=== PATIENT | female | born 1955 | race Caucasian/White ===

== ENCOUNTER → 2016-06-27 07:34 | Outpatient (CLI) | payer MEDICARE ==
[2015-09-20 15:09] VITALS: BMI 27.8
== END | disposition home or self-care (01) ==
LOC: D.CT 07:34
DX: R10.31 Right lower quadrant pain (principal)

== ENCOUNTER 2016-08-17 19:43 | Emergency (ER) | payer MEDICARE ==
[2015-09-20 15:09] VITALS: BMI 27.8
[2016-08-17 20:16] LABS: BASOPHILS 0.5 % (0-2); EOSINOPHILS 1.5 % (0-7); HEMATOCRIT 37.8 % (36.0-48.0); HEMOGLOBIN 12.4 g/dL (12-16); IMMATURE GRANULOCYTES 0.1 % (0-5); MCHC 32.8 g/dL (31.0-37.0); MCV 85.3 fL (80.0-100.0); MEAN PLATELET VOLUME 9.5 fL (7.4-10.4); MONOCYTES 6.7 % (2-11); NEUTROPHILS 70.2 % (40-80); RBC 4.43 10x6/uL (4.00-5.40); RDW 15.7 % (11.5-14.5); WBC 8.5 10x3/uL (4.8-10.8)
[2016-08-17 20:21] LABS: PLATELET COUNT 234 10x3/uL (130-400)
[2016-08-17 20:47] LABS: ALBUMIN 3.2 g/dL (3.4-5.0); ALKALINE PHOSPHATASE 113 U/L (46-116); ALT (SGPT) 18 U/L (10-68); BILIRUBIN - TOTAL 0.14 mg/dL (0.2-1.3); CALC OSMOLALITY 283 mosm/kg (275-300); CALCIUM 8.9 mg/dL (8.5-10.1); CARBON DIOXIDE 29.3 mmol/L (21.0-32.0); CHLORIDE - SERUM 104 mmol/L (98-107); CREATININE - SERUM 0.9 mg/dL (0.6-1.3); GLUCOSE 101 mg/dL (74-106); POTASSIUM - SERUM 3.9 mmol/L (3.5-5.1); PROTEIN - SERUM 6.4 g/dL (6.4-8.2); SODIUM 142 mmol/L (136-145); UREA NITROGEN 14 mg/dL (7-18); eGFR NON AFRICAN AMERICAN 67 mL/min (90-120)
[2016-08-17 20:51] LABS: C-REACTIVE PROTEIN < 0.2 mg/dL (0.0-0.9)
== END 2016-08-17 22:25 | disposition home or self-care (01) ==
LOC: D.ER 19:43
PROVIDERS: Family Medicine; Nurse Practitioner Acute Care
DX: R10.31 Right lower quadrant pain (principal); M51.27 Other intervertebral disc displacement, lumbosacral region; F17.200 Nicotine dependence, unspecified, uncomplicated

== ENCOUNTER 2016-08-21 14:44 | Emergency (ER) | payer MEDICARE ==
[2015-09-20 15:09] VITALS: BMI 27.8
[2016-08-21 15:33] LABS: APPEARANCE HAZY (CLEAR); BILIRUBIN NEGATIVE (NEGATIVE); COLOR YELLOW (YELLOW); GLUCOSE NEGATIVE (NEGATIVE); KETONE NEGATIVE (NEGATIVE); LEUKOCYTE ESTERASE 1+ (NEGATIVE); NITRITE NEGATIVE (NEGATIVE); PROTEIN NEGATIVE (NEGATIVE); UROBILINOGEN NORMAL (NORMAL)
[2016-08-21 15:36] LABS: BACTERIA FEW /hpf (NONE SEEN); EPITHELIAL CELLS 0-5 /hpf (0-5); RED CELLS - URINE 0-5 /hpf (0-5)
[2016-08-21 15:39] LABS: BASOPHILS 0.7 % (0-2); EOSINOPHILS 1.8 % (0-7); HEMATOCRIT 35.7 % (36.0-48.0); HEMOGLOBIN 11.9 g/dL (12-16); IMMATURE GRANULOCYTES 0.4 % (0-5); LYMPHOCYTES 31.3 % (15-50); MCH 28.3 pg (26.0-34.0); MCHC 33.3 g/dL (31.0-37.0); MEAN PLATELET VOLUME 9.4 fL (7.4-10.4); MONOCYTES 8.2 % (2-11); NEUTROPHILS 57.6 % (40-80); PLATELET COUNT 215 10x3/uL (130-400); RDW 15.5 % (11.5-14.5); WBC 5.5 10x3/uL (4.8-10.8)
[2016-08-21 15:59] LABS: ALBUMIN 3.2 g/dL (3.4-5.0); ALKALINE PHOSPHATASE 115 U/L (46-116); ALT (SGPT) 22 U/L (10-68); BILIRUBIN - TOTAL 0.11 mg/dL (0.2-1.3); CALC OSMOLALITY 277 mosm/kg (275-300); CALCIUM 9.1 mg/dL (8.5-10.1); CARBON DIOXIDE 31.7 mmol/L (21.0-32.0); CHLORIDE - SERUM 105 mmol/L (98-107); CREATININE - SERUM 0.8 mg/dL (0.6-1.3); GLUCOSE 95 mg/dL (74-106); POTASSIUM - SERUM 3.6 mmol/L (3.5-5.1); PROTEIN - SERUM 6.7 g/dL (6.4-8.2); SODIUM 140 mmol/L (136-145); UREA NITROGEN 9 mg/dL (7-18); eGFR NON AFRICAN AMERICAN 77 mL/min (90-120)
== END 2016-08-21 17:31 | disposition home or self-care (01) ==
LOC: D.ER 14:44
PROVIDERS: Emergency Medicine; Nurse Practitioner Family
DX: N39.0 Urinary tract infection, site not specified (principal); R10.9 Unspecified abdominal pain; C18.9 Malignant neoplasm of colon, unspecified; F17.200 Nicotine dependence, unspecified, uncomplicated

== ENCOUNTER → 2016-11-10 07:05 | Outpatient (CLI) | payer MEDICARE ==
[2015-09-20 15:09] VITALS: BMI 27.8
== END | disposition home or self-care (01) ==
LOC: D.RAD 07:05
DX: R10.9 Unspecified abdominal pain (principal); Z85.038 Personal history of other malignant neoplasm of large intestine

== ENCOUNTER 2016-12-02 09:24 | Inpatient (IN) | payer MEDICARE ==
[~2016-12-02] VITALS: Ht 160 cm; Wt 68.2 kg
[2016-12-02 10:07] LABS: BASOPHILS 0.7 % (0-2); EOSINOPHILS 1.5 % (0-7); HEMATOCRIT 39.2 % (36.0-48.0); IMMATURE GRANULOCYTES 0.1 % (0-5); LYMPHOCYTES 21.8 % (15-50); MCH 27.4 pg (26.0-34.0); MCHC 33.2 g/dL (31.0-37.0); MCV 82.7 fL (80.0-100.0); MEAN PLATELET VOLUME 9.2 fL (7.4-10.4); MONOCYTES 5.2 % (2-11); NEUTROPHILS 70.7 % (40-80); PLATELET COUNT 253 10x3/uL (130-400); RBC 4.74 10x6/uL (4.00-5.40); RDW 15.3 % (11.5-14.5); WBC 7.5 10x3/uL (4.8-10.8)
[2016-12-02 10:33] LABS: ALBUMIN 3.7 g/dL (3.4-5.0); ALKALINE PHOSPHATASE 114 U/L (46-116); ALT (SGPT) 18 U/L (10-68); BILIRUBIN - TOTAL 0.28 mg/dL (0.2-1.3); CALC OSMOLALITY 274 mosm/kg (275-300); CALCIUM 9.5 mg/dL (8.5-10.1); CHLORIDE - SERUM 102 mmol/L (98-107); CREATININE - SERUM 0.8 mg/dL (0.6-1.3); GLUCOSE 90 mg/dL (74-106); POTASSIUM - SERUM 3.7 mmol/L (3.5-5.1); PROTEIN - SERUM 7.9 g/dL (6.4-8.2); SODIUM 138 mmol/L (136-145); UREA NITROGEN 10 mg/dL (7-18); eGFR NON AFRICAN AMERICAN 77 mL/min (90-120)
[2016-12-02] MEDS ORDERED: OMEPRAZOLE40 MG PO (10:45)
--- NOTE | 2016-12-02 10:45 | NUR ---
RECIEVED PT TO THE FLOOR AT THIS TIME, ACCEPTED AND ASSESSMENT DONE BY LAZ MONIQUE RN. WILL CONTINUE TO MONITOR.
[2016-12-02] MEDS ORDERED: EXCEDRIN CAPLET1 TAB PO (10:46)
[2016-12-02 11:54] VITALS: BP 138/64; Ht 160 cm; Wt 68.2 kg
[2016-12-02 12:59] VITALS: BP 136/78
[2016-12-02 14:04] LABS: APPEARANCE CLEAR (CLEAR); BILIRUBIN NEGATIVE (NEGATIVE); COLOR YELLOW (YELLOW); GLUCOSE NEGATIVE (NEGATIVE); KETONE NEGATIVE (NEGATIVE); NITRITE NEGATIVE (NEGATIVE); PROTEIN TRACE mg/dL (NEGATIVE); SPECIFIC GRAVITY 1.015 (1.005-1.020); UROBILINOGEN NORMAL (NORMAL)
[2016-12-02 14:07] LABS: BACTERIA FEW /hpf (NONE SEEN); EPITHELIAL CELLS 0-5 /hpf (0-5); GRANULAR CAST OCC /lpf (NONE SEEN); HYALINE CAST 0-5 /lpf (NONE SEEN); LEUKOCYTE ESTERASE TRACE (NEGATIVE); MUCUS <1+ /lpf (NONE SEEN); RED CELLS - URINE OCC /hpf (0-5)
[2016-12-02 16:58] VITALS: BP 129/77
[2016-12-02 20:00] VITALS: BP 160/82
--- NOTE | 2016-12-02 23:30 | NUR ---
PATIENT RESTING IN BED WITH EYES CLOSED AND NO VISIBLE SIGNS OF DISTRESS. BED IN LOWEST POSITION AND CALL LIGHT WITHIN REACH.
[2016-12-03 04:00] VITALS: BP 137/77
[2016-12-03 05:30] LABS: BASOPHILS 0.5 % (0-2); EOSINOPHILS 0.5 % (0-7); HEMATOCRIT 37.1 % (36.0-48.0); HEMOGLOBIN 11.9 g/dL (12-16); IMMATURE GRANULOCYTES 0.2 % (0-5); LYMPHOCYTES 19.7 % (15-50); MCH 26.7 pg (26.0-34.0); MCHC 32.1 g/dL (31.0-37.0); MCV 83.4 fL (80.0-100.0); MEAN PLATELET VOLUME 9.6 fL (7.4-10.4); NEUTROPHILS 71.1 % (40-80); PLATELET COUNT 246 10x3/uL (130-400); RBC 4.45 10x6/uL (4.00-5.40); RDW 15.1 % (11.5-14.5)
[2016-12-03 05:46] LABS: WBC 5.5 10x3/uL (4.8-10.8)
[2016-12-03 06:00] LABS: ALBUMIN 3.1 g/dL (3.4-5.0); ALKALINE PHOSPHATASE 100 U/L (46-116); ALT (SGPT) 16 U/L (10-68); BILIRUBIN - TOTAL 0.25 mg/dL (0.2-1.3); CALC OSMOLALITY 277 mosm/kg (275-300); CALCIUM 8.7 mg/dL (8.5-10.1); CARBON DIOXIDE 29.9 mmol/L (21.0-32.0); CHLORIDE - SERUM 104 mmol/L (98-107); CREATININE - SERUM 0.7 mg/dL (0.6-1.3); GLUCOSE 91 mg/dL (74-106); POTASSIUM - SERUM 3.8 mmol/L (3.5-5.1); PROTEIN - SERUM 6.8 g/dL (6.4-8.2); SODIUM 140 mmol/L (136-145); UREA NITROGEN 10 mg/dL (7-18); eGFR NON AFRICAN AMERICAN 90 mL/min (90-120)
--- NOTE | 2016-12-03 07:45 | NUR ---
ASSESSMENT COMPLETE. IV TO L HAND PATENT. NS INFUSING AT 75 CC/HR VIA PUMP. ILEOSTOMY PATENT WITH SMALL AMOUNT OF LIQUID GREENISH-BROWN STOOL NOTED IN BAG. DRESSING C/D/I TO L ABDOMEN. DENIES ANY NEEDS AT PRESENT.
[2016-12-03 09:52] VITALS: BP 158/83
--- NOTE | 2016-12-03 10:30 | NUR ---
ILEOSTOMY EMPTIED. DENIES ANY FURTHER NEEDS AT THIS TIME.
[2016-12-03 13:07] VITALS: BP 150/80
--- NOTE | 2016-12-03 13:21 | NUR ---
CM met with patient to assess discharge planning needs. Patient lives home alone independently where she plans to return. Patient's brother (Matti Rojo, [phone]) will be the person to drive her home when the time comes. Patient has a can and a walker at home. She denies any HH or any DME and does not this she will need it when she goes home. CM will continue to follow and assist as needed. PCP: [facility] Matti Rojo ([phone]) Brother
--- NOTE | 2016-12-03 15:00 | NUR ---
ILEOSTOMY BAG AND WAFER CHANGED PER PATIENT REQUEST.
--- NOTE | 2016-12-03 15:57 | NUR ---
PATIENT BEING DISCHARGED TODAY WITH HOME HEALTH FOR WOUND DRESSING CHANGE. HH SET UP WITH [facility] PER PATIENT CHOICE, BRODERICK SIGNED AND PLACED IN CHART
[2016-12-03] MEDS ORDERED: LEVAQUIN500 MG PO (15:59)
[2016-12-03 16:41] VITALS: BP 144/68
--- NOTE | 2016-12-03 17:00 | NUR ---
DISCHARGE TEACHING GIVEN TO PATIENT. WOUND TO L ABDOMEN PACKED AND COVERED WITH 4X4'S AND TAPE.
--- NOTE | 2016-12-03 17:08 | NUR ---
DC'D HOME WITH FAMILY. ESCORTED TO VEHICLE BY THERMAL SPRAY OPERATOR WITH BELONGINGS.
== END 2016-12-03 17:08 | disposition home health service (06) | DRG 863 ==
LOC: D.MS 09:24
PROVIDERS: ADMIT Family Medicine
DX: T81.4XXA Infection following a procedure, initial encounter (principal); L02.211 Cutaneous abscess of abdominal wall; Z93.3 Colostomy status; K21.9 Gastro-esophageal reflux disease without esophagitis; F17.200 Nicotine dependence, unspecified, uncomplicated

== ENCOUNTER 2017-01-04 14:50 | Inpatient (IN) | payer MEDICARE ==
[~2017-01-04] VITALS: Ht 160 cm; Wt 67.1 kg
[~2017-01-04 14:50] MED LIST: DILAUDID2 MG PO; EXCEDRIN CAPLET1 TAB PO; LEVAQUIN500 MG PO; OMEPRAZOLE40 MG PO; ZANAFLEX4 MG PO
[2017-01-04 15:28] LABS: BASOPHILS 0.1 % (0-2); EOSINOPHILS 0.2 % (0-7); HEMATOCRIT 36.7 % (36.0-48.0); HEMOGLOBIN 12.3 g/dL (12-16); IMMATURE GRANULOCYTES 0.5 % (0-5); LYMPHOCYTES 7.7 % (15-50); MCHC 33.5 g/dL (31.0-37.0); MCV 80.7 fL (80.0-100.0); MEAN PLATELET VOLUME 9.9 fL (7.4-10.4); NEUTROPHILS 85.5 % (40-80); PLATELET COUNT 240 10x3/uL (130-400); RBC 4.55 10x6/uL (4.00-5.40); RDW 15.8 % (11.5-14.5); WBC 9.4 10x3/uL (4.8-10.8)
[2017-01-04 15:46] LABS: ALBUMIN 2.6 g/dL (3.4-5.0); ANION GAP 13.8 mmol/L (8-16); BILIRUBIN - TOTAL 1.3 mg/dL (0.2-1.3); CALCIUM 8.8 mg/dL (8.5-10.1); CARBON DIOXIDE 24.8 mmol/L (21.0-32.0); CREATININE - SERUM 1.5 mg/dL (0.6-1.3); POTASSIUM - SERUM 3.6 mmol/L (3.5-5.1); PROTEIN - SERUM 6.9 g/dL (6.4-8.2)
[2017-01-04 18:37] LABS: APPEARANCE CLOUDY (CLEAR); COLOR DK YELLOW (YELLOW); LEUKOCYTE ESTERASE TRACE (NEGATIVE); NITRITE NEGATIVE (NEGATIVE); PROTEIN TRACE mg/dL (NEGATIVE); SPECIFIC GRAVITY 1.015 (1.005-1.020)
[2017-01-04 18:38] LABS: BILIRUBIN NEGATIVE (NEGATIVE); GLUCOSE NEGATIVE (NEGATIVE); KETONE NEGATIVE (NEGATIVE); UROBILINOGEN NORMAL (NORMAL)
[2017-01-04 18:44] LABS: AMORPHOUS SEDIMENT >1+ /lpf (NONE SEEN); BACTERIA MANY /hpf (NONE SEEN); EPITHELIAL CELLS 0-5 /hpf (0-5); HYALINE CAST 0-5 /lpf (NONE SEEN); RED CELLS - URINE 0-5 /hpf (0-5)
--- NOTE | 2017-01-04 21:00 | NUR ---
PATIENT RESTING IN BED WITH EYES CLOSED AND NO VISIBLE SIGNS OF DISTRESS. BED IN LOWEST POSITION AND CALL LIGHT WITHIN REACH.
--- NOTE | 2017-01-04 22:48 | NUR ---
CALLED WILFRED IN REGARDS TO PULLING LEVAQUIN
[2017-01-05] VITALS: BP 124/57
[2017-01-05 00:38] VITALS: BP 109/55; BMI 26.2
[2017-01-05 04:00] VITALS: BP 104/60
--- NOTE | 2017-01-05 04:49 | NUR ---
NOTIFIED BY PATIENT THAT HER OSTOMY BAG WAS LEAKING. CHANGED PATIENT'S BAG AND DID A COMPLETE LINEN CHANGE. ALSO CHANGED THE PATIENT'S ABDOMINAL DRESSING. PATIENT RESTING AND DENIES OTHER NEEDS AT THIS TIME. BED IN LOWEST POSITION AND CALL LIGHT WITHIN REACH. ENCOURAGED THE PATIENT TO CALL IF SHE HAS OTHER NEEDS.
[2017-01-05 05:20] LABS: BASOPHILS 0.3 % (0-2); EOSINOPHILS 1.3 % (0-7); HEMATOCRIT 33.4 % (36.0-48.0); HEMOGLOBIN 10.9 g/dL (12-16); IMMATURE GRANULOCYTES 0.4 % (0-5); LYMPHOCYTES 6.3 % (15-50); MCH 26.5 pg (26.0-34.0); MCHC 32.6 g/dL (31.0-37.0); MCV 81.1 fL (80.0-100.0); MEAN PLATELET VOLUME 9.5 fL (7.4-10.4); MONOCYTES 6.7 % (2-11); PLATELET COUNT 234 10x3/uL (130-400); RBC 4.12 10x6/uL (4.00-5.40); RDW 15.7 % (11.5-14.5); WBC 7.8 10x3/uL (4.8-10.8)
[2017-01-05 05:37] LABS: ALBUMIN 2.2 g/dL (3.4-5.0); CALCIUM 8.5 mg/dL (8.5-10.1); CARBON DIOXIDE 25.3 mmol/L (21.0-32.0); CREATININE - SERUM 1.2 mg/dL (0.6-1.3); POTASSIUM - SERUM 3.3 mmol/L (3.5-5.1); PROTEIN - SERUM 6.3 g/dL (6.4-8.2)
--- NOTE | 2017-01-05 07:40 | NUR ---
ASSESSMENT PER FLOW SHEET.PT WITHOUT DISTRESS.DRESSING TO MID ABDOMEN CDI.DARK BROWN LIQUID STOOLS IN COLOSTOMY BAG.STOMA VERY DARK IN COLOR.REDNESS WITH WARMTH NOTED TO BILATERAL SIDES.NPO.FALL PREVENTION INITIATED WITH BED ALARM,SOCKS AND BAND.
--- NOTE | 2017-01-05 08:25 | NUR ---
CONTYACT ISOLATION PER SAMIA
[2017-01-05 08:31] VITALS: BP 108/52
--- NOTE | 2017-01-05 09:55 | NUR ---
REMAINS NPOFOR SURGERY TODAY.PRE SURGICAL BATH COMPLETE.
--- NOTE | 2017-01-05 10:10 | NUR ---
CONSENTS TO CHART FOR PROCEDURE ORDERED
[2017-01-05 12:28] VITALS: BP 91/45
--- NOTE | 2017-01-05 14:41 | NUR ---
Patient Name: TAO JONES Admission Status: ER Accout number: [id number] Admission Date: 01-04-2017 : 1955 Admission Diagnosis: Attending: RONNIE SONG Current LOS: 1 Anticipated DC Date: 01-08-2017 Planned Disposition: Home Primary Insurance: MEDICARE A & B Discharge Planning Comments: CM MET WITH PATIENT REGARDING D/C NEEDS AND PLANS. PATIENT STATED SHE LIVES ALONE AND HER BROTHER (ROHAN) WILL DRIVE HER HOME AT DISCHARGE. PATIENT STATED SHE HAS NO STEPS OR STAIRS AT HOME. PATIENT IS INDEPENDENT WITH HER CARE AND HAS A WALKER, CANE, AND BS COMMODE AT HOME. PATIENT STATED HER PCP IS DR. ALVAREZ AND PH[facility]ACY IS [facility]. PATIENT IS CURRENT WITH [facility]. CM WILL CONTINUE TO FOLLOW PATIENT WITH D/C NEEDS AND PLANS. PCP [facility]- [phone] ROHAN (BROTHER) [phone] Pattern Ruler: Marily Celis Is the patient Alert and Oriented? Yes 0 * How many steps to enter\exit or inside your home? 0 0 * PCP DR. ALVAREZ 0 * [facility]acy [facility] 0 * Preadmission Environment Home Alone 0 * ADLs Independent 0 * Equipment Bedside Commode Cane Walker 0 * List name and contact numbers for known caregivers / representatives who currently or will assist patient after discharge: ROHAN (BROTHER) [phone] 0 * Community resources currently utilized Home Health 0 * Please name any agencies selected above. [facility] 0 * Additional services required to return to the preadmission environment? Yes 0 * Can the patient safely return to the preadmission environment? Yes 0 * Has this patient been hospitalized within the prior 30 days at any hospital? No 0 Grand Total: 0
--- NOTE | 2017-01-05 15:28 | NUR ---
PT REFUSES TO LET OTHER 1/2 OF THIRD BAG OF POTASSIUM FINISH.STATES SHE WILL TAKE PO IF NEEDED.
[2017-01-05 16:38] VITALS: BP 100/52
[2017-01-06] VITALS: BP 93/51
[2017-01-06 04:00] VITALS: BP 103/42
--- NOTE | 2017-01-06 07:58 | NUR ---
IV RESITED TO RIGHT AC. 22GA X 1
--- NOTE | 2017-01-06 08:05 | NUR ---
PT AOX4 RESP EVEN AND NONLABORED PT DENIES NEEDS AT THIS TIME IV TO RIGHT AC PATENT AND INTACT AT THIS TIME SRX2 BED AT LOWEST SETTING CALL LIGHT WITHIN REACH WILL CONTINUE TO MONITOR
--- NOTE | 2017-01-06 08:24 | NUR ---
Wound care consult: Nurse arrived to pt room at same time as surgery transport. Pt states "I have a cyst that they should have caught and now they tell me it has a staph infection. You don't want to know what I think about this s!". When asked if nurse could look at cyst before pt left for surgery, pt refused.
[2017-01-06 08:26] VITALS: BP 123/58
--- NOTE | 2017-01-06 09:07 | NUR ---
Spoke to warehouse worker 2nd shift regarding pt concerns.
--- NOTE | 2017-01-06 09:10 | NUR ---
Per electrician helper powerhouse's advice, went to unit to speak with pts nurse to request she call doc and get anti-anxiety medication ordered for pt and administer with pain meds for attempt at wound vac change. Gloved and gowned, entered room to find physician in process of removing sponges from pts wound. Pts daughter present. Assigned nurse left to get pain medication, administered medication during sponge removal. Normal saline provided to physician, who states to loosly pack small piece of sponge when vac replaced. Requested anti-anxiety medication for pt. Physician statement "No. That would be considered conscious sedation and we don't do that". Pt calmer after wound vac removed. Informed pt and dtr that wound vac will be replaced after allowing pain medication to take full effect. Pt crying, but no longer yelling out in pain. Wound bed is 100% red, beefy tissue. Will measure as pt allows during vac replacement.
--- NOTE | 2017-01-06 09:39 | NUR ---
Pt is calm at this time, daughter at bedside, reassuring her "the worst is over". Per daughter, Dr. Griffiths wishes her to take a shower before wound vac replacement. Pt will shower within the next 30 minutes, and allow wound vac replacement. Wound is currently covered with 4x4 gauze and tape by physician. Safety precautions reviewed with family. Per family, physician states he will order Ativan for use before next wound vac change. Physician explained to family that anti-anxiety medication and IV pain medications administered within 30 minutes of one another would be considered conscious sedation and INTAKE RN would have to be present at bedside for procedure. Pt is agreeable to allow wound vac replacement and requests this nurse to perform.
--- NOTE | 2017-01-06 10:08 | NUR ---
NOTICED IV TO LEFT ARM INFILTRATED. DC'D IV PER ANESTHESIA. ANETHESIA ORDERED DILAUDID 1MG X1 TO BE GIVEN AFTER NEW IV ACCESSED.
[2017-01-06 10:59] VITALS: BP 113/62
[2017-01-06 13:06] VITALS: Ht 160 cm; Wt 67.1 kg
[2017-01-06 16:27] VITALS: BP 132/56
--- NOTE | 2017-01-06 18:58 | NUR ---
PT C/O OF SEVERE PAIN "FROM NOT PEEING" PT BLADDERSCANNED AND 449ML IN BLADDER AT THIS TIME. DR. ALVAREZ PAGED THROUGH THE SERVICE AT THIS TIME
[2017-01-06 20:00] VITALS: BP 111/52
--- NOTE | 2017-01-06 20:01 | NUR ---
WILKS CATH INSERTED WITH STERILE TECHNIQUE X 1 ATTEMPT WITHOUT DIFFICULTY AT THIS TIME
--- NOTE | 2017-01-06 20:11 | NUR ---
PATIENT RESTING IN BED WITH LAB AT BEDSIDE. PATIENT HAS NO VISIBLE SIGNS OF DISTRESS. BED IN LOWEST POSITION AND CALL LIGHT WITHIN REACH.
[2017-01-07 04:00] VITALS: BP 118/60
[2017-01-07 05:00] VITALS: BP 139/59
[2017-01-07 08:02] VITALS: BP 117/58
[2017-01-07 12:19] VITALS: BP 114/60
--- NOTE | 2017-01-07 17:51 | NUR ---
PT LAYING IN BED, VOICED NO NEEDS OR CONCERNS AT THIS TIME. ASSESSMENT DONE PER FLOWSHEET. BED IN LOW POSITION AND CALL LIGHT WITHIN REACH. WILL CONTINUE TO MONITOR.
[2017-01-07 20:00] VITALS: BP 141/54
--- NOTE | 2017-01-07 21:52 | NUR ---
REC'D LYING IN BED. ALERT AND ORIENTED X4. DENIED PAIN AT THIS TIME. IS WANTED HER IV TAPED UP. DENIED FURTHER NEEDS AT THIS TIME. NO DISTRESS NOTED. ILLEOSTOMY BAG INTACT MIN OUT. DRESSING TO ABDOMEN IS DRY AND INTACT. WILKS CATH IS DRAINING TO GRAVITY. INSTRUCTED TO CALL IF NEEDED ANYTHING, VERBLAIZED UNDERSTANDING. BED LOW, LOCKED, CALL LIGHT IN REACH, ALARM ON.
--- NOTE | 2017-01-08 02:19 | NUR ---
PATIENT IS RESTING QUIETLY WITH EYES CLOSED. NO SIGNS OF DISTRESS NOTED. BED IN LOWEST POSITION, CALL LIGHT IN REACH, BED RAILS UP X'S 2. CONTACT ISOLATION PRECAUTIONS MAINTAINED.
[2017-01-08 05:56] LABS: BASOPHILS 0.2 % (0-2); EOSINOPHILS 1.8 % (0-7); HEMOGLOBIN 8.4 g/dL (12-16); IMMATURE GRANULOCYTES 0.8 % (0-5); LYMPHOCYTES 9.2 % (15-50); MCH 26.8 pg (26.0-34.0); MCHC 33.6 g/dL (31.0-37.0); MCV 79.6 fL (80.0-100.0); MEAN PLATELET VOLUME 9.1 fL (7.4-10.4); MONOCYTES 9.6 % (2-11); NEUTROPHILS 78.4 % (40-80); PLATELET COUNT 257 10x3/uL (130-400); RBC 3.14 10x6/uL (4.00-5.40); RDW 15.8 % (11.5-14.5); WBC 5.1 10x3/uL (4.8-10.8)
[2017-01-08 06:08] LABS: CALC OSMOLALITY 266 mosm/kg (275-300); CARBON DIOXIDE 26.5 mmol/L (21.0-32.0); CHLORIDE - SERUM 100 mmol/L (98-107); CREATININE - SERUM 0.6 mg/dL (0.6-1.3); GLUCOSE 110 mg/dL (74-106); MAGNESIUM - SERUM 1.4 mg/dL (1.8-2.4); PHOSPHOROUS 3.4 mg/dL (2.5-4.9); SODIUM 134 mmol/L (136-145); UREA NITROGEN 6 mg/dL (7-18); eGFR NON AFRICAN AMERICAN > 90 mL/min (90-120)
--- NOTE | 2017-01-08 08:00 | NUR ---
ASSESSMENT PER FLOW SHEET.PT WITHOUT DISTRESS.DENIES NEEDS.CALL LIGTH IN REACH.ISOATION MAINTAINED.
[2017-01-08 08:21] VITALS: BP 145/68
[2017-01-08 12:17] VITALS: BP 135/55
[2017-01-08 16:02] VITALS: BP 146/69
--- NOTE | 2017-01-08 16:41 | NUR ---
WILKS DCD ORDERED,600CC OF YELLOW URINE IN BAG
--- NOTE | 2017-01-08 19:04 | NUR ---
PT HAS VOIDED APROX 500CC OF URINE
[2017-01-08 20:00] VITALS: BP 140/62; BP 156/73
--- NOTE | 2017-01-08 21:35 | NUR ---
PATIENT RESTING IN BED WITH NO VISIBLE SIGNS OF DISTRESS. ADMINISTERED MEDS PER ORDERS AND COMPLETED ASSESSMENT. BED IN LOWEST POSITION AND CALL LIGHT WITHIN REACH. ENCOURAGED THE PATIENT TO CALL IF SHE HAS NEEDS.
[2017-01-09] VITALS: BP 129/81
--- NOTE | 2017-01-09 00:30 | NUR ---
RECEIVED CARE OF PATIENT.
[2017-01-09 04:00] VITALS: BP 121/68
[2017-01-09] MEDS ORDERED: LEVAQUIN750 MG PO (08:44)
[2017-01-09] MEDS ORDERED: FLAGYL500 MG PO (08:44)
[2017-01-09 09:31] VITALS: BP 114/69
--- NOTE | 2017-01-09 09:45 | NUR ---
DENIES PAIN AT PRESENT.VSS. FAMILY AT BEDSIDE.CALL LIGHT IN REACH
--- NOTE | 2017-01-09 11:35 | NUR ---
SPOKE WITH SUSSY/PHARMACIST WITH [facility] VIA PHONE TO CORRECT AMOUNT FOR FLAGYL TO TID X 7 DAYS.
--- NOTE | 2017-01-09 11:40 | NUR ---
HAS VOIDED X2. TOLERATING REG DIET WITHOUT NAUSEA.MONITOR FOR NEEDS
[2017-01-09 12:12] VITALS: BP 122/79
--- NOTE | 2017-01-09 12:20 | NUR ---
IV DCD X2 WITH CATH INTACCT.DISCHARGE INSTRUCTIONS,STATES UNDERSTANDING.
--- NOTE | 2017-01-09 12:32 | NUR ---
LEFT UNIT VIA WHEELCHAIR FOR TRANSPORT HOME.
--- NOTE | 2017-01-09 13:47 | NUR ---
CM REASSESSMENT NOTE: PATIENT IS DISCHARGING HOME WITH [facility]. BROTHER IS DRIVING PATIENT HOME. PATIENT HAD NO OTHER NEEDS FOR DISCHARGE.
--- NOTE | 2017-01-16 10:30 | OP ---
PATIENT NAME: TAO JONES MEDICAL RECORD: [id number] :55 LOCATION:D.MS [id number] ADMISSION DATE:01/04/17 SURGEON: RONNIE SONG MD DATE OF OPERATION: 01/09/2017 PREOPERATIVE DIAGNOSES: 1. Ileostomy necrosis. 2. Abdominal wall cellulitis. 3. Tobacco dependence syndrome. POSTOPERATIVE DIAGNOSES: 1. Ileostomy necrosis. 2. Abdominal wall cellulitis. 3. Tobacco dependence syndrome. PROCEDURE: Ileostomy revision. SURGEON: Ronnie Song MD REPORT OF PROCEDURE: The patient's abdomen was prepped and draped in sterile fashion. The indwelling ileostomy was inspected and we finger fractured any of the attachments around the ileostomy. The space in the subcutaneous tissue was irrigated out thoroughly with normal saline. There was no sign of any purulence noted. The drain was noted to be in good position. At this point, a pursestring with a 2-0 Vicryl was used to bring the skin together a little bit closer around the ileostomy. The ileostomy was then sewn down to the skin edges in minimal brooking fashion due to the large amount of swelling and the shortness of the ileostomy. We were able to get the skin edges up to the edge of the ileostomy using multiple interrupted 4-0 Vicryls. At this point, a new ostomy bag was applied. COMPLICATIONS: None. CONDITION: Stable. ANESTHESIA: General endotracheal. BLOOD LOSS: Minimal. TRANSINT:[id number] Voice Confirmation ID: [id number] DOCUMENT ID: [id number] RONNIE SONG MD at 1030 CC: [id number] DICTATION DATE: 01/09/17 0850 ACID DUMPER: 01/09/17 0949 DIS IN 01/09/17 [id number] [place] [id number]
--- NOTE | 2017-01-16 10:30 | OP ---
PATIENT NAME: TAO JONES MEDICAL RECORD: [id number] :55 LOCATION:D.MS Page223[place] ADMISSION DATE:01/04/17 SURGEON: RD SONG MD DATE OF OPERATION: 01/06/2017 PREOPERATIVE DIAGNOSES: 1. Ileostomy necrosis. 2. Abdominal wall abscess. 3. Chronic abdominal pain. 4. Abdominal aortic aneurysm. 5. Tobacco dependence syndrome. 6. Gastroesophageal reflux disease. 7. Arthritis. POSTOPERATIVE DIAGNOSES: 1. Ileostomy necrosis. 2. Abdominal wall abscess. 3. Chronic abdominal pain. 4. Abdominal aortic aneurysm. 5. Tobacco dependence syndrome. 6. Gastroesophageal reflux disease. 7. Arthritis. PROCEDURE: 1. I&D of abdominal wall abscess. 2. Ileostomy revision. SURGEON: Rd Song MD REPORT OF PROCEDURE: The patient's abdomen was prepped and draped in sterile fashion. The indwelling ileostomy was cut loose from its surrounding attachments to the abdominal wall. Upon opening this, there was spillage of succuss from the subcutaneous pouch. This was suctioned out and then irrigated thoroughly until there was a good clear return of fluid and the succuss was completely gone. We transected the small bowel at about 3 cm down from its edge to what appeared to be normal viable small bowel tissue. We then pulled up the small bowel and was able to finger dissect into the abdominal cavity and release any attachments and adhesions that were present in order to allow to pull the small bowel ileostomy up as far as possible. We then tacked up the ileostomy to the skin edges, but was not able to brook the tissue because of the extensive swelling that was present. We just left it sitting straight up in the air. A 15-Uzbek Bud drain had been inserted and placed into the subcutaneous pouch. This was brought out of the abdominal wall in the right lower quadrant. This was sutured into place with a 4-0 nylon. We then cleaned off the area and placed an ileostomy bag around the tissue and dressed the open wound, which was present in the abdominal midline. COMPLICATIONS: None. CONDITION: Fair. ANESTHESIA: General endotracheal. BLOOD LOSS: Minimal. OPERATIVE REPORT [id number] TAO JONES TRANSINT:[id number] Voice Confirmation ID: [id number] DOCUMENT ID: [id number] RD SONG MD at 1030 CC: [id number] DICTATION DATE: 01/06/17 0932 AIRCRAFT INSPECTOR: 01/06/17 1107 DIS IN 01/09/17 [facility] [address] [facility]
== END 2017-01-09 12:32 | disposition home health service (06) | DRG 394 ==
LOC: D.ER 14:50 → D.MS 20:00
PROVIDERS: Emergency Medicine; Family Medicine; ADMIT Surgery
PROC: 05HC33Z Insertion of Infusion Device into Left Basilic Vein, Percutaneous Approach (ICD-10-PCS; principal; 2017-01-07)
PROC: B54NZZA Ultrasonography of Left Upper Extremity Veins, Guidance (ICD-10-PCS; 2017-01-07)
DX: K94.09 Other complications of colostomy (principal); L03.311 Cellulitis of abdominal wall; F41.9 Anxiety disorder, unspecified; F31.9 Bipolar disorder, unspecified; F43.10 Post-traumatic stress disorder, unspecified; F17.200 Nicotine dependence, unspecified, uncomplicated

== ENCOUNTER 2017-01-13 18:12 | Emergency (ER) | payer MEDICARE ==
[2017-01-06 13:06] VITALS: BMI 26.2
[~2017-01-13 18:12] MED LIST changes: +FLAGYL500 MG PO; +LEVAQUIN750 MG PO
[2017-01-13 19:02] LABS: BASOPHILS 0.5 % (0-2); HEMATOCRIT 31.7 % (36.0-48.0); HEMOGLOBIN 10.4 g/dL (12-16); IMMATURE GRANULOCYTES 1.7 % (0-5); LYMPHOCYTES 17.6 % (15-50); MCH 27.2 pg (26.0-34.0); MCHC 32.8 g/dL (31.0-37.0); MCV 82.8 fL (80.0-100.0); MEAN PLATELET VOLUME 8.7 fL (7.4-10.4); MONOCYTES 10.3 % (2-11); NEUTROPHILS 68.9 % (40-80); PLATELET COUNT 486 10x3/uL (130-400); RBC 3.83 10x6/uL (4.00-5.40)
[2017-01-13 19:19] LABS: ALBUMIN 2.7 g/dL (3.4-5.0); ALKALINE PHOSPHATASE 121 U/L (46-116); ALT (SGPT) 14 U/L (10-68); BILIRUBIN - TOTAL 0.25 mg/dL (0.2-1.3); CALC OSMOLALITY 271 mosm/kg (275-300); CALCIUM 8.9 mg/dL (8.5-10.1); CARBON DIOXIDE 29.9 mmol/L (21.0-32.0); CHLORIDE - SERUM 102 mmol/L (98-107); CREATININE - SERUM 0.8 mg/dL (0.6-1.3); GLUCOSE 104 mg/dL (74-106); PROTEIN - SERUM 6.6 g/dL (6.4-8.2); SODIUM 137 mmol/L (136-145); UREA NITROGEN 7 mg/dL (7-18); eGFR NON AFRICAN AMERICAN 77 mL/min (90-120)
[2017-01-13 21:05] LABS: APPEARANCE CLEAR (CLEAR); COLOR YELLOW (YELLOW)
[2017-01-13 21:06] LABS: BILIRUBIN NEGATIVE (NEGATIVE); GLUCOSE NEGATIVE (NEGATIVE); KETONE NEGATIVE (NEGATIVE); LEUKOCYTE ESTERASE TRACE (NEGATIVE); NITRITE NEGATIVE (NEGATIVE); PROTEIN NEGATIVE (NEGATIVE); UROBILINOGEN NORMAL (NORMAL)
[2017-01-13 21:07] LABS: BACTERIA FEW /hpf (NONE SEEN); RED CELLS - URINE OCC /hpf (0-5); WHITE CELLS - URINE OCC /hpf (0-5)
[2017-01-14] MEDS ORDERED: ZOFRAN ODT4 MG/UDTAB PO (14:25)
== END 2017-01-13 21:55 | disposition home or self-care (01) ==
LOC: D.ER 18:12
PROVIDERS: Emergency Medicine
DX: R53.1 Weakness (principal); E87.6 Hypokalemia; E83.42 Hypomagnesemia; Z85.038 Personal history of other malignant neoplasm of large intestine; F17.200 Nicotine dependence, unspecified, uncomplicated

== ENCOUNTER 2017-01-14 13:07 | Inpatient (IN) | payer MEDICARE ==
[2017-01-14] MEDS ORDERED: ZOFRAN ODT4 MG/UDTAB PO (14:25)
[2017-01-14 17:21] VITALS: BP 119/58; BMI 23.6
--- NOTE | 2017-01-14 17:39 | NUR ---
ALERT AND ORIENTED X4. RESTING IN BED. SUPPLIES IN ROOM TO KEEP ILEOSTOMY CLEAN AND DRY. ASSIST WITH WOUND CARE WHEN NEEDED. CONSENTS FOR ILEOSTOMY REVISION SIGNED ON CHART. AREA AROUND ILEOSTOMY RED IRRITATED, AND PAINFUL TO TOUCH. REFUSE SCDs. AMBULATORY. GAIT STEADY. BED LOCKED AND LOW. CALL LIGHT IN REACH. TWO SIDERAILS UP. ROOM FREE FROM CLUTTER.
--- NOTE | 2017-01-14 19:20 | NUR ---
ALERT/AWAKE WATCHING TV. ABD ILEOSTOMY WITH DRAIN NOTED, COVERED WITH 4X4'S FOR LEAKAGE. REQUESTED SOME ICE CHIPS. L UA PICC WITH NS INFUSING AT 75ML/HR. ORIENTED TO CALL LIGHT FOR ANY NEEDS.
[2017-01-14 20:48] VITALS: BP 118/69
[2017-01-15] VITALS: BP 135/67
[2017-01-15 05:34] LABS: CALC OSMOLALITY 274 mosm/kg (275-300); CALCIUM 8.3 mg/dL (8.5-10.1); CARBON DIOXIDE 26.5 mmol/L (21.0-32.0); CHLORIDE - SERUM 105 mmol/L (98-107); CREATININE - SERUM 0.7 mg/dL (0.6-1.3); GLUCOSE 94 mg/dL (74-106); POTASSIUM - SERUM 3.1 mmol/L (3.5-5.1); SODIUM 138 mmol/L (136-145); eGFR NON AFRICAN AMERICAN 90 mL/min (90-120)
[2017-01-15 05:43] LABS: BASOPHILS 0.4 % (0-2); EOSINOPHILS 1.6 % (0-7); HEMATOCRIT 28.9 % (36.0-48.0); HEMOGLOBIN 9.3 g/dL (12-16); LYMPHOCYTES 22.3 % (15-50); MCH 26.8 pg (26.0-34.0); MCHC 32.2 g/dL (31.0-37.0); MCV 83.3 fL (80.0-100.0); MEAN PLATELET VOLUME 9.1 fL (7.4-10.4); MONOCYTES 8.3 % (2-11); NEUTROPHILS 66.4 % (40-80); PLATELET COUNT 495 10x3/uL (130-400); RBC 3.47 10x6/uL (4.00-5.40); RDW 17.5 % (11.5-14.5)
[2017-01-15 05:52] LABS: UREA NITROGEN 9 mg/dL (7-18)
--- NOTE | 2017-01-15 07:15 | NUR ---
RECIEVED REPORT ON PATIENT, PATIENT IS ALERT AND ORIENTED AT THIS TIME. NAD NOTED AT THIS TIME. PATIENT DENIES ANY NEEDS OR PAIN AT THIS TIME. BED IS LOW AND LOCKED, CALL LIGHT IN REACH. WILL CONT TO MONITOR PATIENT. CPOC.
[2017-01-15 08:00] VITALS: BP 120/57
--- NOTE | 2017-01-15 08:40 | NUR ---
PATIENT GONE TO SURGERY. CPOC
--- NOTE | 2017-01-15 12:00 | NUR ---
PATIENT BACK FROM SURGERY, VS STABLE. REPORT RECIEVED FROM JUDY. SITE LOOKS GOOD. LITTLE BLOOD NOTED. TIM DRAIN NOTED WITH BLOOD. CHAMBER IS COMPRESSED. WILL CONT TO MONITOR. CPOC
[2017-01-15 13:13] VITALS: BMI 23.5
--- NOTE | 2017-01-15 13:33 | NUR ---
ASSESSED RESP STATUS. TITRATE TO MAINTAIN SP02 OF 94. CURRENT SPO2 97 ON 3L NC TURNED DOWN TO 2L WILL CONTNUE TO MONITOR
--- NOTE | 2017-01-15 14:05 | NUR ---
PERFORM O2 TITRATION PER MD ORDER PT CURRENTLY 99 ON 2 L VIA NC. TURNED OXYGEN OFF WILL CONTINUE TO ASSESS
--- NOTE | 2017-01-15 14:33 | NUR ---
REPORT GIVEN TO STAR ON MED SURG PATIENT BEING TRANSFERRRED TO 2217.
--- NOTE | 2017-01-15 15:29 | NUR ---
DILAUDID 1 MG SIVP PER C/O PAIN OF "12" TO ABDOMEN AT THIS TIME. WILL CONTINUE WITH PLAN OF CARE.
--- NOTE | 2017-01-15 16:40 | NUR ---
ASSISTED TO BR AND BACK TO BED WITH MINIMAL ASSISTANCE.
--- NOTE | 2017-01-15 18:32 | NUR ---
NO CHANGES IN INITIAL ASSESSMENT. CALL LIGHT IN REACH. WILL CONTINUE WITH PLAN OF CARE.
--- NOTE | 2017-01-15 19:00 | NUR ---
REPORT RECEIVED AND CARE OF PT ASSUMED. PT LYING IN SUPINE POSITION WATCHING TV. LEFT PICC LINE PATENT WITH NS INFUSING AT 75 ML / HR. ILEOSTOMY PATENT WITH BLOODY DRAINAGE IN BAG AND LEAKAGE BELOW BAG. CHANGED GAUZE DRESSING BELOW ILEOSTOMY. TIM DRAIN COMPRESSED WITH SEROUS DRAINAGE IN BULB. EILL MONITOR CLOSELY FOR NEEDS.
[2017-01-15 20:00] VITALS: BP 123/63
--- NOTE | 2017-01-15 20:58 | NUR ---
HS MEDICATIONS GIVEN TO INCLUDE DILAUDID IVP AND ZANAFLEX PO PER REQUEST, PER PRN ORDERS. WILL CONTINUE TO MONITOR FOR NEEDS.
[2017-01-16] VITALS: BP 131/74
--- NOTE | 2017-01-16 00:22 | NUR ---
PT AMBULATED WITH WALKER AND OXYGEN AROUND NURSING UNIT X1 TIME. ALL BEDDING CHANGED DUE TO INCONTINENT EPISODE WHILE COUGHING. POSITION BACK IN BED FOR COMFORT. CALL LIGHT WITHIN REACH.
--- NOTE | 2017-01-16 01:10 | NUR ---
GAVE DILAUDID PER REQUEST FOR C/O PAIN AT LEVEL 10/10. ASSISTED PT TO USE BEDPAN. WILL CONTINUE TO MONITOR FOR NEEDS.
--- NOTE | 2017-01-16 01:15 | NUR ---
CHANGED DRESSING ON ABDOMEN BELOW ILESTOMY TO CATCH LEAKAGE.
[2017-01-16 04:00] VITALS: BP 147/60
--- NOTE | 2017-01-16 07:28 | NUR ---
REPORT RECEIVED FROM CUPOLA OPERATOR INSULATION NURSE. CALL LIGHT IN REACH.
--- NOTE | 2017-01-16 07:54 | NUR ---
STATES THAT SHE NEEDED TO GET ON THE BEDPAN. I TOLD PATIENT THAT I WILL ASSIST HER IN GETTING UP AND WALKING TO THE BR. SHE SAID "I AM GOING TO FALL." I STATED THAT I WOULD NOT LET HER FALL. SCULPTURE INSTRUCTOR CAME IN ROOM WITH ME AND PATIENT WALKED TO THE BR BY HERSELF WITH ONLY STANDBY ASSIST. PATIENT THEN STATED "LEAVE THESE LEG THINGS OFF OF ME SINCE I HAVE TO GET UP BY MYSELF NOW." I ONCE AGAIN EXPLAINED TO PATIENT THAT WE WILL ASSIST HER WE HAVE BEEN AND SHE DOES NOT AND WILL NOT GO BY HERSELF." SHE DID WELL ON HER OWN BUT WE WILL NATIONAL SERVICE OFFICER ROOM WITH PATIENT TO MAKE SURE SHE DOES OK.
[2017-01-16 08:48] VITALS: BP 128/61
--- NOTE | 2017-01-16 09:30 | NUR ---
ASSESSMENT COMPLETED. SCDs TO BLE. CALL LIGHT IN REACH. WILL CONTINUE WITH PLAN OF CARE.
--- NOTE | 2017-01-16 10:30 | NUR ---
REQUESTED AND GIVNE ONE MG DILAUDID SLOW IVP FOR C/O STOMA PAIN LEVEL 10. WILL MONITOR.
--- NOTE | 2017-01-16 10:30 | OP ---
PATIENT NAME: TAO JONES MEDICAL RECORD: [id number] :55 LOCATION:D.MS Page221[place] ADMISSION DATE:01/14/17 SURGEON: RD SONG MD DATE OF OPERATION: 01/15/2017 PREOPERATIVE DIAGNOSES: 1. Ileostomy breakdown. 2. Abdominal wall cellulitis. 3. Tobacco dependent syndrome. POSTOPERATIVE DIAGNOSES: 1. Ileostomy breakdown. 2. Abdominal wall cellulitis. 3. Tobacco dependent syndrome. PROCEDURES: 1. Ileostomy revision. 2. Lysis of adhesions. SURGEON: Rd Song MD REPORT OF PROCEDURE: The patient's abdomen was prepped and draped in sterile fashion. The ileostomy was broken down with its connections to the surrounding skin. The remainder of the connections were taken down and the ileostomy was freed up from its fascial attachments. I was able to dissect around the abdominal wall and free up any attachments, which were present. As I tediously and slowly pulled up the small bowel from the ileostomy, we took down some adhesions of the surrounding small bowel and fatty tissue, which were present. As we continued this dissection, we were eventually able to eviscerate a significant portion of the small bowel up through the ileostomy site. We then irrigated out the wound with normal saline and assured there was no sign of any purulent material. There was a drain that was already in place. This was cleaned off and just laid back into the subcutaneous space. The subcutaneous tissue just underneath the skin was reapproximated with 2-0 Vicryl in a pursestring fashion. We then brooked the ileostomy as best we could using 3-0 Vicryl, this brooked may be 0.5 cm at the most, but all the attachments appeared to be in good condition. There was no sign of any necrosis and there was good blood flow at the distal edge of the ileostomy. The wound was irrigated out one last time and a new ostomy appliance was applied. COMPLICATIONS: None. CONDITION: Stable. ANESTHESIA: General endotracheal. BLOOD LOSS: 50 mL. TRANSINT:[id number] Voice Confirmation ID: [id number] DOCUMENT ID: [id number] OPERATIVE REPORT [id number] TAO JONES RD SONG MD at 1030 CC: [id number] DICTATION DATE: 01/15/17 1125 HAIRCUTTER: 01/15/17 1240 ADM IN [facility] [address], [facility]
--- NOTE | 2017-01-16 11:28 | NUR ---
SPOKE WITH AREN WATSON, WOUND CARE NURSE ABOUT DR. SONG'S ORDER. VERBALIZED UNDERSTANDING.
[2017-01-16 12:26] VITALS: BP 137/62
--- NOTE | 2017-01-16 13:20 | NUR ---
OSTOMY CHANGED PER AREN WATSON.
--- NOTE | 2017-01-16 14:15 | NUR ---
REQUESTING PAIN MED. BESSY DELA CRUZ. WANTS SCDs OFF AT THIS TIME.
--- NOTE | 2017-01-16 16:20 | NUR ---
NO NEEDS VOICED AT THIS TIME. CALL LIGHT IN REACH.
[2017-01-16 16:27] VITALS: BP 134/61
--- NOTE | 2017-01-16 18:19 | NUR ---
GAUZE AND ABDOMINAL PAD APPLIED TO ABDOMEN. DILAUDID 1 MG SIVP. CALL LIGHT IN REACH. NO OTHER CHANGES IN ASSESSMENT. WILL CONTINUE WITH PLAN OF CARE.
[2017-01-16 20:00] VITALS: BP 144/69
--- NOTE | 2017-01-17 02:23 | NUR ---
ASSESSED, PT IS ASLEEP ON ROOM AIR. RESPIRATIONS ARE EVEN AND UNLABORED, THE BED IS LOW, RAILS UP X'S 2 WITH THE CALL LIGHT AT HAND. NO DISTRESS NOTED.
[2017-01-17 04:00] VITALS: BP 121/61
--- NOTE | 2017-01-17 04:26 | NUR ---
CHANGED DRESSING AROUND ILLEOSTOMY.
--- NOTE | 2017-01-17 07:45 | NUR ---
AWAKE AND ALERT AT THIS TIME. OSTOMY SITE LEAKING, BUT PT DOESN'T WANT IT CHANGED AT THIS TIME. CALL LIGHT IN REACH. WILL CONTINUE WITH PLAN OF CARE.
[2017-01-17 07:55] VITALS: BP 151/62
--- NOTE | 2017-01-17 10:58 | NUR ---
16 AMHARIC WILKS CATHETER PLACED USING STERILE TECHNIQUE PER ORDER. ILEOSTOMY APPLIANCE REMOVED PER PT'S REQUEST AND 4X4'S AND ABD PAD APPLIED TO SITE. DENIES FURTHER NEEDS. WILL CONTINUE WITH PLAN OF CARE.
[2017-01-17 12:44] VITALS: BP 117/63
--- NOTE | 2017-01-17 14:02 | NUR ---
PRN DILAUDID ADMINISTERED PER ORDER FOR PAIN 01/27.
[2017-01-17 16:34] VITALS: BP 126/55
[2017-01-17 20:00] VITALS: BP 116/64
[2017-01-18 04:13] VITALS: BP 132/60
--- NOTE | 2017-01-18 04:51 | NUR ---
ASSESSED, PT IS ASLEEP WITH EASY RESOIRATIONS AND NO DISTRESS NOTED. WILKS AT THE BEDSIDE. THE BED IS LOW, RAILS UP X'S 2 WITH THE CALL LIGHT AT HAND.
--- NOTE | 2017-01-18 07:45 | NUR ---
PATIENT RECEIVED ALERT IN BED NO SIGNS OF DISTRESS NOTED. C/O PAIN 12/28. REQUESTING PAIN MEDICATION. SIDE RAILS UP X2. BED IN LOW POSITION. CALL LIGHT IN REACH.
--- NOTE | 2017-01-18 08:00 | NUR ---
DILAUDID ADMINISTERED SLOW IVP PER PRN ORDER.
[2017-01-18 09:02] VITALS: BP 131/61
--- NOTE | 2017-01-18 12:05 | NUR ---
ALERT IN BED. NO SIGNS OF DISTRESS NOTED. IVF TUBING CHANGED PER PROTOCOL. SCHEDULED MEDICATION ADMINSITERED WELL PRN DILAUDID. DENIES FURTHER NEEDS. SIDE RAILS UP X2. BED IN LOW POSITION. CALL LIGHT IN REACH.
[2017-01-18 12:17] VITALS: BP 135/63
--- NOTE | 2017-01-18 16:10 | NUR ---
PATIENT ALERT IN BED. NO SIGNS OF DISTRESS NOTED. DILAUDID GIVEN PER PRN ORDER. SIDE RAILS UP X2. BED IN LOW POSITION. CALL LIGHT IN REACH. DENIES NEEDS.
--- NOTE | 2017-01-18 19:00 | NUR ---
REPORT RECEIVED AND CARE OF PT ASSUMED. PT LYING IN SUPINE POSITION WATCHING TV. LEFT PICC LINE PATENT WITH NS INFUSING AT 75 ML / HR. DRESSING ON ABDOMEN SATURATED.
--- NOTE | 2017-01-18 19:20 | NUR ---
CHANGED DRESSING ON ABDOMEN, PLACING 4X4'S COVERED WITH ABD PAD. WILL MONITOR CLOSLEY.
[2017-01-18 20:00] VITALS: BP 147/66
--- NOTE | 2017-01-18 20:11 | NUR ---
HS MEDICATIONS GIVEN TO INCLUDE DILAUDID 1 MG IVP PER PT REQUEST FOR PAIN AT LEVEL 10/10. WILL MONITOR FOR EFFECTIVENESS. DRESSING ON ABDOMEN CLEAN AND DRY.
--- NOTE | 2017-01-18 22:31 | NUR ---
PT RESTING IN SUPINE POSITION WITH EYES CLOSED AND UNLABORED BREATHING. DRESSING ON ABDOMEN CLEAN AND DRY AT THIS ASSESSMENT.
--- NOTE | 2017-01-18 23:22 | NUR ---
CHANGED ABDOMINAL DRESSING. CLEANSED WOUND / STOMA AND APPLIED DESITIN OINTMENT ON REDNESS. COVERED WITH STACKED 4X4'S, AND ABD PAD. PT TOLERATED WELL.
[2017-01-19] VITALS: BP 140/56
--- NOTE | 2017-01-19 00:06 | NUR ---
GAVE DILAUDID 1 MG IVP PER PRN ORDER PER REQUEST FOR PAIN AT LEVEL 9/10. WILL MONITOR FOR EFFECTIVENESS. SIDE RAILS UP X2 FOR SAFETY.
--- NOTE | 2017-01-19 03:00 | NUR ---
CHANGED PT PAD WILKS MIGHT BE LEAKING...RE-POSITIONED BULB.
--- NOTE | 2017-01-19 03:10 | NUR ---
CHANGED DRESSING ON ABDOMEN...ADDED NEW 4X4'S.
[2017-01-19 05:01] VITALS: BP 142/55
--- NOTE | 2017-01-19 05:05 | NUR ---
CHANGED DRESSING ON ABDOMEN...REPLACED 4X4'S
--- NOTE | 2017-01-19 07:45 | NUR ---
A&O, DENIES NEEDS, CHANGED BANDAGE ON ABDOMEN, NO DISTRESS NOTED, BED LOWEST POSITION, CALL LIGHT IN REACH, WILL CONTINUE TO MONITOR
--- NOTE | 2017-01-19 08:25 | NUR ---
01/16/17 LATE ENTRY: MET WITH PT IN REFERENCE TO DIFFICULTIES WITH SKIN BREAKDOWN AROUND HER ILEOSTOMY AND DIFFICULTY FINDING AN APPLIANCE THAT WILL FIT PROPERLY. I NOTED SOME BLANCHABLE REDNESS AROUND STOMA. THE STOMA ITSELF IS LOCATED IN RIGHT LOWER QUAD OF ABD. IT IS NEARLY FLUSH WITH THE SURROUNDING SKIN. IT IS MOIST AND RED. THERE IS A SMALL AMOUNT OF BLOODY DRAINAGE. PT STATES SHE IS ALLERGIC TO SKIN PROTECTANT, STOMA PASTE, ITALO RINGS, ADAPT RINGS. I WAS ALLOWED TO CLEAN THE SKIN SURROUNDING THE STOMA WITH WOUND HYPERION ANALYST AND APPLY A SMALL AMOUNT OF STOMA POWDER TO SKIN. I THEN PLACED AN ILEOSTOMY APPLIANCE (CUT TO FIT 1-3/4") OVER STOMA. PT HAS HAD ILEOSTOMY FOR SEVERAL YEARS AND TAKES CARE OF IT AT HOME. WILL CONTINUE TO MONITOR.
[2017-01-19 08:48] VITALS: BP 140/57
--- NOTE | 2017-01-19 12:12 | NUR ---
RESTING QUIETLY IN BED. REPORTS GOOD PAIN RELIEF AT THIS TIME. DRESSING TO RIGHT LOWER ABDOMEN DRY AND INTACT. DENIES NEEDS.
[2017-01-19 12:36] VITALS: BP 141/61
--- NOTE | 2017-01-19 12:53 | NUR ---
Patient Name: TAO JONES Admission Status: Elective Accout number: [id number] Admission Date: 01-14-2017 : 1955 Admission Diagnosis:ENTEROSTOMY INFECTION Attending: RONNIE SONG Current LOS: 5 Anticipated DC Date: Planned Disposition: Home with Home Health Primary Insurance: MEDICARE A & B Discharge Planning Comments: CM met with patient to discuss discharge planning needs. Patient stated she lives alone and her Brother will be the one to drive her home at discharge. Patient states that she is current with [facility]. She has no stairs at home. Patient is independent with her care. She has a walker, cane, and BS commode at home. CM will continue to follow and assist with discharge planning needs. PCP: Herrera Kiarn Matti (brother) [phone] Vp Public Relations: Conchita Maldonado * Is the patient Alert and Oriented? Yes 0 * How many steps to enter\exit or inside your home? 0 0 * PCP Herrera 0 * Pharmacy [facility] 0 * Preadmission Environment Home Alone 0 * ADLs Independent 0 * Equipment Bedside Commode Cane Walker 0 * List name and contact numbers for known caregivers / representatives who currently or will assist patient after discharge: aMtti (brother) [phone] 0 * Community resources currently utilized Home Health 0 * Please name any agencies selected above. [facility] 0 * Additional services required to return to the preadmission environment? No 0 * Can the patient safely return to the preadmission environment? Yes 0 * Has this patient been hospitalized within the prior 30 days at any hospital? No 0 Grand Total: 0
--- NOTE | 2017-01-19 13:37 | NUR ---
NUTRITION F/U REGULAR DIET. PT WITH ONLY ~ 25% INTAKE RECENT MEALS. WILL CONTINUE TO PROVIDE DIET, HONOR FOOD PREFERENCES. MONITOR INTAKE. RD FOLLOWING
[2017-01-19 15:56] VITALS: BP 141/66
--- NOTE | 2017-01-19 20:00 | NUR ---
ASSESSMENT PER FLOWSHEET. DRESSING TO ABDOMEN C/D/I TIM DRAIN PATENT AND COMPRESSED WITH SEROUS DRAINAGE NOTED. IV PATENT LEFT UPPER ARM PICC LINE WITH NS AT 75CC'S/HR SITE CLEAR. WILKS TO BEDSIDE DRAINAGE WITH YELLOW URINE NOTED.
--- NOTE | 2017-01-19 21:45 | NUR ---
MEDS GIVEN PER MAR.
[2017-01-19 22:27] VITALS: BP 125/53
--- NOTE | 2017-01-19 22:30 | NUR ---
C/O PAIN ABDOMEN AREA WOUND SITE. RATES PAIN #8. DILAUDID 1MG IVP GIVEN PER MAR FOR PAIN CONTROL.
--- NOTE | 2017-01-19 23:30 | NUR ---
IV ANTIBIOTIC VANCOMYCIN GIVEN PER JUN.
--- NOTE | 2017-01-19 23:51 | NUR ---
PT STATES PAIN SHOT DID HELP EASE THE PAIN RATES PAIN AT A #4.
[2017-01-20] VITALS (10 sets, daily range): BP systolic 101–157; BP diastolic 59–78
--- NOTE | 2017-01-20 02:59 | NUR ---
C/O PAIN ABDOMINAL AREA RATES LEVEL #6 DILAUDID 1MG IVP GIVEN FOR PAIN CONTROL. REMAINS NPO FOR SURGERY IN AM.
--- NOTE | 2017-01-20 03:58 | NUR ---
RESTING QUIETLY. RINSING MOUTH WITH WATER REMAINS NPO. DENTURES REMOVED AND SOAKING IN WATER.
--- NOTE | 2017-01-20 05:36 | NUR ---
MEDS GIVEN WITH A SIP OF WATER. RESTING QUIETLY DENIES NEEDS.
--- NOTE | 2017-01-20 07:30 | NUR ---
RECIEVED PT DURING WALKING ROUNDS. PT IN BED WITH COMPLAINTS OF PAIN OF A 10 ON A SCALE OF 1-10, MEDICATION TO BE GIVEN PER ORDER. ASSESSMENT DONE PER FLOWSHEET. BED IN LOW POSITION AND CALL LIGHT WITHIN REACH. WILL CONTINUE TO MONITOR.
--- NOTE | 2017-01-20 12:20 | NUR ---
PT TAKEN TO SURGERY AT THIS TIME.
--- NOTE | 2017-01-20 20:00 | NUR ---
ASSESSMENT PER FLOWSHEET. IV PATENT LEFT AC PICC LINE WITH NS AT 125CC'S/HR SITE CLEAR. AUTO BODY WORKER OF DILAUDID IN USE WITH SETTINGS AT 0.2MG Q10MIN W/4MG Q4H L/O.MONITORING POST OP VITAL SIGNS. DRESSING TO ABDOMEN C/D/I WITH OSTOMY BAG IN PLACE LEFT LOWER ABDOMEN BLOODY DRAINAGE NOTED,WILKS TO BEDSIDE DRAINAGE WITH RUBY COLORED UA. NGT TO LIWS WITH DARK BROWN/GREEN DRAINAGE NOTED.
--- NOTE | 2017-01-20 22:00 | NUR ---
REPOSITIONED IN BED. SR UP X2 CALL LIGHT WITHIN REACH. HOB UP 30 DEGREES. PT SLEEPING AROUSES TO VERBAL STIMULI.
[2017-01-21] VITALS: BP 119/73
--- NOTE | 2017-01-21 00:46 | NUR ---
MEDS GIVEN PER MAR.
--- NOTE | 2017-01-21 02:21 | NUR ---
EYES CLOSED RESPIRATIONS WITH EASE AND UNLABORED.
[2017-01-21 04:00] VITALS: BP 122/68
--- NOTE | 2017-01-21 04:59 | NUR ---
C/O NAUSEA. ZOFRAN 4MG IVP GIVEN FOR NAUSEA.
[2017-01-21 06:38] LABS: ANION GAP 17.2 mmol/L (8-16); CALCIUM 7.1 mg/dL (8.5-10.1); CARBON DIOXIDE 21.7 mmol/L (21.0-32.0); CREATININE - SERUM 1.5 mg/dL (0.6-1.3); MAGNESIUM - SERUM 1.3 mg/dL (1.8-2.4); PHOSPHOROUS 6.7 mg/dL (2.5-4.9); POTASSIUM - SERUM 3.9 mmol/L (3.5-5.1)
--- NOTE | 2017-01-21 06:41 | NUR ---
RESTING QUIETLY MEDS PER JUN. SR UP X2 CALL LIGHT WITHIN REACH.
[2017-01-21 06:42] LABS: BASOPHILS 0.2 % (0-2); EOSINOPHILS 0 % (0-7); HEMATOCRIT 29.6 % (36.0-48.0); HEMOGLOBIN 9.2 g/dL (12-16); IMMATURE GRANULOCYTES 0.2 % (0-5); LYMPHOCYTES 9.7 % (15-50); MCH 26.4 pg (26.0-34.0); MCHC 31.1 g/dL (31.0-37.0); MCV 84.8 fL (80.0-100.0); MEAN PLATELET VOLUME 9.6 fL (7.4-10.4); MONOCYTES 11.8 % (2-11); NEUTROPHILS 78.1 % (40-80); RBC 3.49 10x6/uL (4.00-5.40); RDW 17.2 % (11.5-14.5); WBC 8.2 10x3/uL (4.8-10.8)
[2017-01-21 06:48] LABS: PLATELET COUNT 320 10x3/uL (130-400)
--- NOTE | 2017-01-21 07:30 | NUR ---
RECIEVED PT DURING WALKING ROUNDS. PT RESTING IN BED WITH COMPLAINTS OF PAIN OF A 7 ON A SCALE OF 1-10. GREEN MARKETER IN USE. ASSESSMENT DONE PER FLOWSHEET. BED IN LOW POSITION AND CALL LIGHT WITHIN REACH.
[2017-01-21 07:50] VITALS: BP 119/57
--- NOTE | 2017-01-21 09:25 | NUR ---
PICC LINE DRESSING CHANGED USING STERILE TECHNIQUE.
[2017-01-21 12:11] VITALS: BP 107/54
[2017-01-21 15:48] VITALS: BP 103/54
[2017-01-21 20:00] VITALS: BP 101/48
--- NOTE | 2017-01-21 20:00 | NUR ---
ASSESSMSENT PER FLOWSHEET. IV PATENT LEFT ARM PICC LINE IV PROCAL AT 125CC'S/HR NS AT 20CC'S/HR DECISION UNIT RN OF DILAUDID IN USE WITH SETTINGS AT 0.2MG Q10MIN W/4MG Q4HR L/O, WILKS TO BEDSIDE DRAINAGE WITH RUBY COLORED URINE. DRESSING TO ABDOMEN C/D/I. OSTOMY BAG COVERING STOMA SMALL AMOUNT RED DRAINAGE NOTED. NGT TO LIWS WITH DARK GREEN DRAINAGE NOTED.SCD'S ON.
--- NOTE | 2017-01-21 20:30 | NUR ---
NPO EXCEPT FOR ICE. EATING CUPS OF ICE AT A TIME.
--- NOTE | 2017-01-21 22:00 | NUR ---
MEDS GIVEN PER MAR.
[2017-01-22] VITALS (20 sets, daily range): BP systolic 99–143; BP diastolic 45–72
--- NOTE | 2017-01-22 | NUR ---
CONTINUES TO EAT ICE FREQUENTLY. SR UP X2 CALL LIGHT WITHIN REACH IAM CARE GIVEN TO WILKS.
--- NOTE | 2017-01-22 03:00 | NUR ---
RESTING AT THIS TIME WAKES UP AND WANTS MORE ICE CHIPS.
[2017-01-22 05:17] LABS: BASOPHILS 0.3 % (0-2); EOSINOPHILS 2.2 % (0-7); IMMATURE GRANULOCYTES 0.3 % (0-5); LYMPHOCYTES 8.8 % (15-50); MCH 26.4 pg (26.0-34.0); MCHC 31.3 g/dL (31.0-37.0); MCV 84.1 fL (80.0-100.0); MEAN PLATELET VOLUME 8.9 fL (7.4-10.4); MONOCYTES 10.1 % (2-11); NEUTROPHILS 78.3 % (40-80); RDW 17.2 % (11.5-14.5); WBC 6.8 10x3/uL (4.8-10.8)
--- NOTE | 2017-01-22 05:18 | NUR ---
RESTING QUIETLY DENIES NEEDS.
[2017-01-22 05:34] LABS: ANION GAP 11.5 mmol/L (8-16); CALCIUM 7.5 mg/dL (8.5-10.1); CARBON DIOXIDE 24.6 mmol/L (21.0-32.0)
[2017-01-22 05:38] LABS: MAGNESIUM - SERUM 2.6 mg/dL (1.8-2.4); PHOSPHOROUS 2.8 mg/dL (2.5-4.9); POTASSIUM - SERUM 3.1 mmol/L (3.5-5.1)
[2017-01-22 05:47] LABS: RBC 2.58 10x6/uL (4.00-5.40)
[2017-01-22 05:49] LABS: HEMATOCRIT 21.7 % (36.0-48.0); HEMOGLOBIN 6.8 g/dL (12-16); PLATELET COUNT 236 10x3/uL (130-400)
--- NOTE | 2017-01-22 07:15 | NUR ---
PATIENT RECEIVED ALERT IN BED. NO SIGNS OF DISTRESS NOTED. SIDE RAILS UP X2. BED IN LOW POSITION. CALL LIGHT IN REACH. DENIES NEEDS.
--- NOTE | 2017-01-22 08:52 | NUR ---
PATIENT ALERT IN BED. NO SIGNS OF DISTRESS NOTED. SCHEDULED MEDICATION ADMINISTERED. DENIES NEEDS. SIDE RAILS UP X2. BED IN LOW POSITION. CALL LIGHT IN REACH. SCD ON BILATERALLY.
--- NOTE | 2017-01-22 09:40 | NUR ---
22 GAUGE IV SITED TO RIGHT FOREARM X1 ATTEMPT. FLUSHES EASY WITH BLOOD RETURN PRESENT. SECURED WITH TAPE AND TEAGDERM. WELL TOLERATED.
--- NOTE | 2017-01-22 10:10 | NUR ---
FIRST UNIT PRBC INITIATED. TRANSFUSING TO RIGHT FOREARM PERIPHERAL IV WITHOUT DIFFICULTY. VITAL SIGNS STABLE. DENIES NEEDS. SIDE RAILS UP X2. BED IN LOW POSITION. CALL LIGHT IN REACH.
--- NOTE | 2017-01-22 11:10 | NUR ---
PRBC CONTINUE TO TRANSFUSE WITHOUT DIFFICULTY. NO REDNESS OR INFLAMMATION NOTED TO IV SITE. VITAL SIGNS STABLE. SIDE RAILS UP X3. BED IN LOW POSITION. CALL LIGHT IN REACH.
--- NOTE | 2017-01-22 14:40 | NUR ---
SECOND UNIT PRBC INITIATED. VITAL SIGNS STABLE. TRANSFUSING TO RIGHT FOREARM IV WITHOUT DIFFICULTY. DENIES NEEDS. SIDE RAISL UP X2. BED IN LOW POSITION. CALL LIGHT IN REACH.
--- NOTE | 2017-01-22 17:25 | NUR ---
PRBC TRANSFUSION COMPLETE. TOLERATED WELL. VITAL SIGNS STABLE. SIDE RAILS UP X2. BED IN LOW POSITION. CALL LIGHT IN REACH.
--- NOTE | 2017-01-22 20:00 | NUR ---
ASSESSMENT PER FLOWHEET. ALERT ORIENTED X3 NGT TO LIWS. IV AND SHEET METAL ENGINEER IN USE PROCAL INFUSING TO LEFT PICC LINE.
--- NOTE | 2017-01-22 22:00 | NUR ---
MEDS GIVEN PER MAR.
[2017-01-23] VITALS: BP 139/65
--- NOTE | 2017-01-23 | NUR ---
EYES CLOSED RESPIRATIONS WITH EASE AND UNLABORED. SR UP X2 CALL LIGHT WITHIN REACH.
--- NOTE | 2017-01-23 02:30 | NUR ---
RESTING QIETLY EATS ICE CHIPS FREQUENTLY.
[2017-01-23 04:00] VITALS: BP 144/63
[2017-01-23 06:06] LABS: BASOPHILS 0.3 % (0-2); EOSINOPHILS 2.7 % (0-7); IMMATURE GRANULOCYTES 0.4 % (0-5); LYMPHOCYTES 10.1 % (15-50); MCH 27.1 pg (26.0-34.0); MCHC 33.3 g/dL (31.0-37.0); MEAN PLATELET VOLUME 9.5 fL (7.4-10.4); MONOCYTES 9.4 % (2-11); NEUTROPHILS 77.1 % (40-80); PLATELET COUNT 204 10x3/uL (130-400); RDW 15.4 % (11.5-14.5); WBC 7.9 10x3/uL (4.8-10.8)
[2017-01-23 06:10] LABS: HEMATOCRIT 29.4 % (36.0-48.0); HEMOGLOBIN 9.8 g/dL (12-16); MCV 81.2 fL (80.0-100.0); RBC 3.62 10x6/uL (4.00-5.40)
--- NOTE | 2017-01-23 07:30 | NUR ---
PATIENT RECEIVED ALERT IN MID [place] POSITION. NO SIGNS OF DISTRESS NOTED. DENIES NEEDS. SIDE RAILS UP X2. BED IN LOW POSITION. CALL LIGHT AND DREDGE OPERATOR SUPERVISOR BUTTON IN REACH.
--- NOTE | 2017-01-23 08:18 | NUR ---
PATIENT ALERT IN BED. SCHEDULED MEDICATION ADMINISTERED. DENIES NEEDS. SIDE RAILS UP X2. BED IN LOW POSITION. CALL LIGHT AND STUD DAIRY CATTLE FARMER BUTTON IN REACH.
[2017-01-23 08:20] VITALS: BP 142/64
--- NOTE | 2017-01-23 10:16 | NUR ---
ALERT IN BED WITH FAMILY AT BEDSIDE. NO SIGNS OF DISTRESS NOTED. IV ABX INITIATED PER ORDER. DENIES NEEDS. SIDE RAILS UP X2. BED IN LOW POSITION. CALL LIGHT AND IMPREGNATOR AND DRIER HELPER BUTTON IN REACH.
[2017-01-23 12:12] VITALS: BP 135/55
--- NOTE | 2017-01-23 14:02 | OP ---
PATIENT NAME: TAO JONES MEDICAL RECORD: [id number] :55 LOCATION:D.MS [id number] ADMISSION DATE:01/14/17 SURGEON: RD SONG MD DATE OF OPERATION: 01/20/2017 PREOPERATIVE DIAGNOSES: 1. Ileostomy necrosis. 2. Tobacco dependence syndrome. 3. Chronic right lower quadrant pain. POSTOPERATIVE DIAGNOSES: 1. Ileostomy necrosis. 2. Tobacco dependence syndrome. 3. Chronic right lower quadrant pain. PROCEDURES: 1. Exploratory laparotomy with lysis of adhesions times 2 hours. 2. Ileostomy takedown and replacement in the left upper quadrant. 3. Small bowel resection. SURGEON: Rd Song MD REPORT OF PROCEDURE: The patient's abdomen was prepped and draped in sterile fashion. The patient had a right lower quadrant ileostomy with necrosis of the skin edges and underlying necrotic tissue in the subcutaneous space. We opened up the abdomen through the midline, starting in the upper abdomen where there had never been an incision made. We were able to enter the abdominal cavity and we took down adhesions to the anterior abdominal wall where previous mesh repair had been performed for ventral hernia. As we continued this dissection, we were able to get completely through this mesh and began lysis of adhesions. This lysis of adhesions of the small bowel to itself and to the surrounding tissues took a total of about 2 hours. The most dense adhesions were present in the pelvis. The patient had a total abdominal colectomy performed in the past. The pelvic adhesions were so dense that there was a couple of full thickness enterotomies performed. These eventually were able to get all the small bowel up, we just took out the segment of small bowel where the enterotomies were present, totaling about a foot in length. This was performed with a 55 blue load KATRIN staplers to transect the bowel followed by a muag-bf-hrdn anastomosis with a 55 blue load KATRIN stapler and the enterotomies were then closed with a 30 blue load TA stapler. We then oversewed the staple lines using Lemberted 3-0 silks. The distal small bowel was removed and a more normal appearing section of small bowel was found for ileostomy. This small bowel was transected with a 55 blue load KATRIN stapler. We then made an opening in the patient's left upper quadrant and dissected down through the anterior fascia in a cruciate fashion and then peeled back the muscle layers. The posterior fascia was opened longitudinally and we eviscerated the small bowel through this opening. This was left in place for the time being. The previous ileostomy site fascia was closed with interrupted 0 Vicryls longitudinally. We then closed the midline fascia including the mesh using a running #1 Prolenes. The subcutaneous tissue was undermined and there was some severe scarring from a previous secondary closure, which was removed. The midline skin was then closed loosely with edison and packed with the little bhavana of Telfa. We then reapproximated the edges of the old ileostomy site using a pursestring 2-0 Vicryls and then placed a wick of Telfa in the space. The ileostomy was then matured using multiple 4-0 Vicryls in a brooking fashion. The ileostomy appeared to be viable at the OPERATIVE REPORT [id number] TAO JONES conclusion of the case and a new ileostomy bag was placed. Dressings were applied to the midline incision in the right lower quadrant incision. COMPLICATIONS: None. CONDITION: Stable. ANESTHESIA: General endotracheal. BLOOD LOSS: 250 mL. TRANSINT:[id number] Voice Confirmation ID: [id number] DOCUMENT ID: [id number] RD SONG MD at 1402 CC: [id number] DICTATION DATE: 01/20/17 163 CERAMICS INSTRUCTOR: 01/20/17 2255 ADM IN [facility] [address] [place] [address]
--- NOTE | 2017-01-23 14:12 | NUR ---
ALERT IN BED. NO SIGNS OF DISTRESS NOTED. SCHEDULED MEDICATION ADMINISTERED. DENIES NEEEDS. SIDE RAILS UP X2. BED IN LOW POSITION. CALL LIGHT IN REACH.
[2017-01-23 16:01] VITALS: BP 138/62
--- NOTE | 2017-01-23 16:05 | NUR ---
Rehab Note- Acute Rehab Prescreen order received. The patient continues to be NPO with ice chips only and no bowel function at this time. The patient appears to be an appropriate acute rehab patient when medically stable and ready for discharge from the acute hospital. Will continue to follow at this time. Thank you for this referral! Tia Gonzalez RN Clinical Liaison, [facility] Rehab
--- NOTE | 2017-01-23 17:00 | NUR ---
WILKS CARE PROVIDED. WILKS D/C PER ORDER. BALLOON DEFLATED. TIP INTACT. APPROXIMATELY 300CC URINE REMAINED IN COLLECTION BAG. WELL TOLERATED. WILL CONTINUE TO MONITOR OUTPUT
--- NOTE | 2017-01-23 19:22 | NUR ---
PATIENT ASSISSTED OOB WITH MINIMAL HELP, SHE KEPT HER KNEES BENT GETTING OOB TO BSC. PATIENT URINATED 400mL CLEAR YELLOW URINE WITH NO DIFFICULTY.
[2017-01-23 20:00] VITALS: BP 139/56
--- NOTE | 2017-01-24 00:28 | NUR ---
ASSESSED, PT IS ASLEEP WITH EASY RESPIRATIONS AND NO DISTRESS NOTED. THERE IS NO O2 AND THE SCD'S ARE OFF PER PT REQUEST. THE BED IS LOW, RAILS UP X'S 2 WITH THE CALL LIGHT AT HAND.
[2017-01-24 03:42] VITALS: BP 172/74
[2017-01-24 04:00] VITALS: BP 142/71
[2017-01-24 06:15] LABS: BASOPHILS 0.2 % (0-2); EOSINOPHILS 1.4 % (0-7); HEMATOCRIT 28.1 % (36.0-48.0); HEMOGLOBIN 9.5 g/dL (12-16); IMMATURE GRANULOCYTES 0.4 % (0-5); LYMPHOCYTES 12.8 % (15-50); MCH 27.7 pg (26.0-34.0); MCHC 33.8 g/dL (31.0-37.0); MCV 81.9 fL (80.0-100.0); MEAN PLATELET VOLUME 9.5 fL (7.4-10.4); MONOCYTES 14.5 % (2-11); NEUTROPHILS 70.7 % (40-80); PLATELET COUNT 235 10x3/uL (130-400); RBC 3.43 10x6/uL (4.00-5.40); RDW 15.5 % (11.5-14.5)
[2017-01-24 06:20] LABS: WBC 4.9 10x3/uL (4.8-10.8)
[2017-01-24 06:49] LABS: CALC OSMOLALITY 265 mosm/kg (275-300); CALCIUM 8.1 mg/dL (8.5-10.1); CARBON DIOXIDE 27.7 mmol/L (21.0-32.0); CHLORIDE - SERUM 97 mmol/L (98-107); CREATININE - SERUM 0.6 mg/dL (0.6-1.3); GLUCOSE 88 mg/dL (74-106); MAGNESIUM - SERUM 1.6 mg/dL (1.8-2.4); PHOSPHOROUS 1.5 mg/dL (2.5-4.9); POTASSIUM - SERUM 3.2 mmol/L (3.5-5.1); SODIUM 133 mmol/L (136-145); UREA NITROGEN 14 mg/dL (7-18); eGFR NON AFRICAN AMERICAN > 90 mL/min (90-120)
[2017-01-24 07:02] VITALS: BP 164/70
--- NOTE | 2017-01-24 07:15 | NUR ---
REPORT RECEIVED FROM PREPARATION ROOM MANAGER NURSE. CALL LIGHT IN REACH.
--- NOTE | 2017-01-24 09:03 | NUR ---
ASSESSMENT COMPLETED. ZOFRAN IVPB PER C/O NAUSEA. OTHER AM MEDS ADMINISTERED. REFUSES SCDs. CALL LIGHT IN REACH. WILL CONTINUE WITH PLAN OF CARE.
--- NOTE | 2017-01-24 09:38 | NUR ---
[facility] PLACED IN ROOM FOR MEASUREMENT OF URINE.
--- NOTE | 2017-01-24 11:40 | NUR ---
NO NEEDS VOICED AT THIS TIME. CALL LIGHT IN REACH.
--- NOTE | 2017-01-24 13:06 | NUR ---
PT AOX4 RESP EVEN AND NONLABORED PT DENIES NEEDS AT THIS TIME NG TUBE TO NARE AT THIS TIME SRX2 BED AT LOWEST SETTING CALL LIGHT WITHIN REACH WILL CONTINUE TO MONITOR
--- NOTE | 2017-01-24 13:42 | NUR ---
MAXIPIME IVPB. WILL ASK BICYCLE MESSENGER TO DO LINEN CHANGE D/T INCONTINENT SPELL.
--- NOTE | 2017-01-24 15:50 | NUR ---
DRSG TO ABDOMEN CHANGED PER MD ORDER. CALL LIGHT IN REACH.
--- NOTE | 2017-01-24 17:04 | NUR ---
C/O NAUSEA SO ZOFRAN 4 MG SIVP PER ORDER. CALL LIGHT IN REACH.
[2017-01-24 20:00] VITALS: BP 187/67
[2017-01-25] VITALS: BP 153/78
[2017-01-25 04:00] VITALS: BP 147/65
[2017-01-25 06:48] LABS: BASOPHILS 0.4 % (0-2); EOSINOPHILS 2.5 % (0-7); HEMATOCRIT 28.7 % (36.0-48.0); HEMOGLOBIN 9.6 g/dL (12-16); LYMPHOCYTES 10.4 % (15-50); MCH 27.5 pg (26.0-34.0); MCHC 33.4 g/dL (31.0-37.0); MCV 82.2 fL (80.0-100.0); MEAN PLATELET VOLUME 9.1 fL (7.4-10.4); MONOCYTES 17.4 % (2-11); NEUTROPHILS 68.3 % (40-80); PLATELET COUNT 242 10x3/uL (130-400); RBC 3.49 10x6/uL (4.00-5.40); RDW 15.7 % (11.5-14.5); WBC 5.2 10x3/uL (4.8-10.8)
[2017-01-25 07:08] LABS: CALC OSMOLALITY 269 mosm/kg (275-300); CALCIUM 8.3 mg/dL (8.5-10.1); CHLORIDE - SERUM 98 mmol/L (98-107); CREATININE - SERUM 0.5 mg/dL (0.6-1.3); GLUCOSE 97 mg/dL (74-106); POTASSIUM - SERUM 3.2 mmol/L (3.5-5.1); SODIUM 135 mmol/L (136-145); UREA NITROGEN 12 mg/dL (7-18); eGFR NON AFRICAN AMERICAN > 90 mL/min (90-120)
--- NOTE | 2017-01-25 07:15 | NUR ---
REPORT RECEIVED FROM SHOW WORKER NURSE. CALL LIGHT IN REACH.
--- NOTE | 2017-01-25 09:06 | NUR ---
NGT DC'D WITH TIP INTACT.
--- NOTE | 2017-01-25 09:30 | NUR ---
ASSESSMENT COMPLETED. REFUSES SCDs. CALL LIGHT IN REACH. WILL CONTINUE WITH PLAN OF CARE.
[2017-01-25 09:48] VITALS: BP 162/95
--- NOTE | 2017-01-25 11:55 | NUR ---
ZOFRAN IV WITH AM MEDS ADMINISTERED. CALL LIGHT IN REACH.
[2017-01-25 12:05] VITALS: BP 161/77
--- NOTE | 2017-01-25 13:50 | NUR ---
NO NEEDS VOICED AT THIS TIME. CALL LIGHT IN REACH.
--- NOTE | 2017-01-25 14:46 | NUR ---
AFTERNOON MEDS ADMINISTERED. CALL LIGHT IN REACH.
--- NOTE | 2017-01-25 16:37 | NUR ---
CLEAN CATCH URINE OBTAINED AND SENT TO LAB.
--- NOTE | 2017-01-25 18:07 | NUR ---
NO CHANGES IN INITIAL ASSESSMENT. CALL LIGHT IN REACH. WILL CONTINUE WITH PLAN OF CARE.
--- NOTE | 2017-01-25 19:15 | NUR ---
RECEIVED CARE FROM DAY NURSE. PT IN LOW FOWLERS POSTION. NO NEEDS VOICED AT THIS TIME. CALL LIGHT AT SIDE. IV INFUSING TO LEFT PATENT PICC PER ORDER.
[2017-01-25 21:22] VITALS: BP 156/71
[2017-01-26] VITALS: BP 145/60
--- NOTE | 2017-01-26 00:35 | NUR ---
LYDIA PADRON ASSISTING PATIENT TO THE RESTROOM. PATIENT HAS NO VISIBLE SIGNS OF DISTRESS AND DENIES NEEDS AT THIS TIME. ENCOURAGED THE PATIENT TO CALL IF SHE HAS NEEDS.
[2017-01-26 05:27] LABS: BASOPHILS 0.3 % (0-2); EOSINOPHILS 2.5 % (0-7); HEMATOCRIT 29.6 % (36.0-48.0); HEMOGLOBIN 9.8 g/dL (12-16); IMMATURE GRANULOCYTES 1.3 % (0-5); LYMPHOCYTES 9.8 % (15-50); MCH 27.5 pg (26.0-34.0); MCHC 33.1 g/dL (31.0-37.0); MCV 83.1 fL (80.0-100.0); MEAN PLATELET VOLUME 9.2 fL (7.4-10.4); MONOCYTES 11.6 % (2-11); NEUTROPHILS 74.5 % (40-80); PLATELET COUNT 232 10x3/uL (130-400); RBC 3.56 10x6/uL (4.00-5.40); RDW 15.6 % (11.5-14.5); WBC 6.3 10x3/uL (4.8-10.8)
[2017-01-26 05:43] LABS: CALC OSMOLALITY 270 mosm/kg (275-300); CALCIUM 8.4 mg/dL (8.5-10.1); CARBON DIOXIDE 29.3 mmol/L (21.0-32.0); CHLORIDE - SERUM 98 mmol/L (98-107); CREATININE - SERUM 0.6 mg/dL (0.6-1.3); GLUCOSE 89 mg/dL (74-106); SODIUM 136 mmol/L (136-145); UREA NITROGEN 13 mg/dL (7-18); eGFR NON AFRICAN AMERICAN > 90 mL/min (90-120)
[2017-01-26 05:44] LABS: POTASSIUM - SERUM 3.8 mmol/L (3.5-5.1)
--- NOTE | 2017-01-26 07:32 | NUR ---
SCHEDULED MEDICATIONS ADMINISTERED AT THIS TIME AND BOLUS ADMINISTERED FOR PAIN. AWAKE AND ALERT. CALL LIGHT IN REACH, WILL CONTINUE WITH PLAN OF CARE.
[2017-01-26 08:21] VITALS: BP 155/83
--- NOTE | 2017-01-26 12:51 | NUR ---
NUTRITION F/U PT CONTINUES PROCALAMINE @ 125 CC/HR. 20% INTRALIPIDS 250 CC Q 48 HOURS. CLEAR LIQUID DIET, STARTED. PT TOLERATING SMALL AMTS. PROCALAMINE AND LIPIDS PROVIDING ~ 985 KCAL, [address] FOLLOWING
[2017-01-26 17:31] VITALS: BP 154/75
[2017-01-26 20:00] VITALS: BP 149/76
--- NOTE | 2017-01-27 01:12 | NUR ---
EYE CLOSED RESPIRATIONS WITH EASE AND UNLABORED. SR UP X2 CALL LIGHT WITHIN REACH.
--- NOTE | 2017-01-27 07:30 | NUR ---
AWAKE AND ALERT. ORIENTED X3. NO NEW C/O AT THIS TIME. LUNGS ARE CLEAR BILATERALLY, OCCASSIONAL DRY COUGH NOTED. SKIN IS INTACT WITHOUT REDNESS EXCEPT WOUND TO RIGHT LOWER ABDOMEN AND MIDLINE INCISION WHICH HAVE LEAKED THROUGH DRESSING. CHANGED PER STAFF. COLOSTOMY TO LEFT ABDOMEN IS ALSO LEAKING. APPLIANCE CHANGED AND SKIN CARE PER STAFF. PICC TO LEFT UPPER ARM IS PATENT WITHOUT REDNESS AT INSERTION SITE. SL TO RIGHT FOREARM IS PATNET WITHOUT REDNESS AT INSERTION SITE. UP TO BSC PER SELF. VOIDED CLEAR YELLOW URINE WITHOUT DIFFICULTY.
[2017-01-27 08:30] VITALS: BP 152/72
--- NOTE | 2017-01-27 09:00 | NUR ---
COLOSTOMY LEAKING AGAIN. STOMA PINK AND VIABLE. APPLIANCE CHANGED AGAIN. SKIN CARE PER STAFF. DENIES NEEDS.
--- NOTE | 2017-01-27 11:00 | NUR ---
RESTING QUIETLY IN BED. NO NEEDS NOTED.
[2017-01-27] MEDS ORDERED: MAXIPIME 1 GM/D51 G1 IV (11:19)
[2017-01-27] MEDS ORDERED: TORADOL30 MG/ML IV (11:20)
[2017-01-27] MEDS ORDERED: ONDANSETRON4 MG/2 M3 IV (11:20)
[2017-01-27 11:39] VITALS: BP 145/68
--- NOTE | 2017-01-27 12:53 | NUR ---
Patient discharging to inpatient rehab today. imm served
--- NOTE | 2017-01-27 16:15 | NUR ---
REPORT CALLED TO SHEBA YOUNGER ON REHAB. WILL LET PATIENT EAT SUPPER PRIOR TO DISCHARGE TO REHAB.
--- NOTE | 2017-01-27 18:37 | NUR ---
ATE ABOUT HALF OF H[place]BUR[place] WITHOUT NAUSEA OR PAIN. TRANSFERRED TO ROOM 1117A VIA WC. ALL QUESTIONS ANSWERED.
== END 2017-01-27 18:37 | DRG 330 ==
LOC: D.M2 13:07 → D.MS 13:07
PROVIDERS: ADMIT Surgery
PROC: 02HV33Z Insertion of Infusion Device into Superior Vena Cava, Percutaneous Approach (ICD-10-PCS; principal; 2017-01-14)
PROC: B548ZZA Ultrasonography of Superior Vena Cava, Guidance (ICD-10-PCS; 2017-01-14)
PROC: 0WQFXZ2 Repair Abdominal Wall, Stoma, External Approach (ICD-10-PCS; 2017-01-15)
PROC: 0DNB0ZZ Release Ileum, Open Approach (ICD-10-PCS; 2017-01-15 08:15)
PROC: 0DNW0ZZ Release Peritoneum, Open Approach (ICD-10-PCS; 2017-01-20)
PROC: 0DBB0ZZ Excision of Ileum, Open Approach (ICD-10-PCS; 2017-01-20)
PROC: 0DNB0ZZ Release Ileum, Open Approach (ICD-10-PCS; 2017-01-20)
PROC: 0D1B0Z4 Bypass Ileum to Cutaneous, Open Approach (ICD-10-PCS; 2017-01-20)
DX: K94.12 Enterostomy infection (principal); L03.311 Cellulitis of abdominal wall; I96 Gangrene, not elsewhere classified; Y83.8 Other surgical procedures as the cause of abnormal reaction of the patient, or of later complication, without mention of misadventure at the time of the procedure; F17.200 Nicotine dependence, unspecified, uncomplicated

== ENCOUNTER 2017-01-27 16:54 | Inpatient (IN) | payer MEDICARE ==
[~2017-01-27 16:54] MED LIST changes: +MAXIPIME 1 GM/D51 G1 IV; +ONDANSETRON4 MG/2 M3 IV; +TORADOL30 MG/ML IV; +ZOFRAN ODT4 MG/UDTAB PO
--- NOTE | 2017-01-27 20:20 | NUR ---
ASSISTED PT TO BATHROOM.
--- NOTE | 2017-01-27 20:28 | NUR ---
PT. IN BED WITH HOB UP FOR COMFORT AND IS WATCHING TV. CALL LIGHT WITHIN REACH.
[2017-01-27 22:26] VITALS: BP 133/68; BMI 25.0
--- NOTE | 2017-01-28 03:08 | NUR ---
REST IN BED, EYE CLOSE, BED LOW, CALL LIGHT IN REACH.
[2017-01-28 06:00] LABS: BASOPHILS 0.4 % (0-2); EOSINOPHILS 2.3 % (0-7); HEMATOCRIT 29.1 % (36.0-48.0); HEMOGLOBIN 9.5 g/dL (12-16); LYMPHOCYTES 12.6 % (15-50); MCH 27.5 pg (26.0-34.0); MCHC 32.6 g/dL (31.0-37.0); MCV 84.1 fL (80.0-100.0); MEAN PLATELET VOLUME 9.2 fL (7.4-10.4); MONOCYTES 8.9 % (2-11); NEUTROPHILS 74.8 % (40-80); RBC 3.46 10x6/uL (4.00-5.40); RDW 16.3 % (11.5-14.5)
[2017-01-28 06:14] LABS: PLATELET COUNT 328 10x3/uL (130-400)
[2017-01-28 06:34] LABS: CALC OSMOLALITY 273 mosm/kg (275-300); CALCIUM 8.1 mg/dL (8.5-10.1); CHLORIDE - SERUM 101 mmol/L (98-107); CREATININE - SERUM 0.7 mg/dL (0.6-1.3); GLUCOSE 98 mg/dL (74-106); POTASSIUM - SERUM 3.9 mmol/L (3.5-5.1); SODIUM 137 mmol/L (136-145); UREA NITROGEN 12 mg/dL (7-18); eGFR NON AFRICAN AMERICAN 90 mL/min (90-120)
--- NOTE | 2017-01-28 08:00 | NUR ---
SHIFT ASSMT COMPLETED.DRSG TO ABD COMING OFF.SURGICAL WND WITH OPEN AREA'S DOWN THE MIDDLE OF THE INCISION HOLDING TOGETHER BY FEW JESSIE;MIDDLE OF ABD STAPLE IS ONLY ON ONE SIDE.ILEOSTOMY ON LEFT WITH STOMA PINK AND PASSING STOOL DARK GREEN THIN LIQUID.RIGHT SIDE OF OLD ILEOSTOMY HAS THIN BLACK COVERING INSIDE NECROTIC.WILL CONSULT WND CARE.
[2017-01-28 08:26] VITALS: BP 141/48
--- NOTE | 2017-01-28 11:00 | NUR ---
SHIRLEY WITH WND CARE EVALUATED SURGICAL WND AND CALLED .CONSULTED AND STATED HE WILL SEE PT TOMARROW.OTIS'S ARE FOLLOWS UNTIL HE CAN OBSERVE IT.
[2017-01-28 11:04] VITALS: BMI 24.9
--- NOTE | 2017-01-28 11:14 | NUR ---
Wound care consult: Pt had ileostomy repositioning surgery on 01/20/17. Stoma is red and moist located in left upper abd quad. She has a midline abdominal incision and an open area on right lower quad from previous stoma site. Right lower quad wound measures 1cm x 3cm x 2.5cm. The wound is dry. Midline abdominal incision has clips on upper aspect - moving down there is an opening measuring 1cm x 2cm x 2.5cm (pink/moist), then 2 clips -then another opening measuring 8.5cm x 5cm x 3.3cm x 3.5cm from 6-12 oclock. 2 clips are noted at this site and the skin is stretched (clips are nearly coming out). Called Dr. Yang to update him on the wound. He stated he will come tomorrow and see pt. and possibly add sutures. He wants to continue to loosely pack the incision until he can see her. Wound was loosely packed with kerlix, covered with 4x4s and secured with medipore tape. Pt tolerated well and is looking forward to seeing Dr. Yang tomorrow. Wound care will continue monitoring.
[2017-01-28 14:18] VITALS: BMI 24.9
[2017-01-28 19:38] VITALS: BP 131/65
--- NOTE | 2017-01-28 19:38 | NUR ---
PT REMEDIATION TECHNICIAN LIGHT, C/O ABD PAIN, ASSESSMENT PER FLOW SHEET, ABD DRESSING INTACT, LEFT ILEOSTOMY RED AND BEEFY, BAG IN PLACE, ADM DILAUDID PO PER MD ORDERS WITH FRESH H20, PT DENIES FURTHER NEEDS
--- NOTE | 2017-01-28 20:14 | NUR ---
PT MEDICAL AFFAIRS SPECIALIST LIGHT, PT UP TO BR VIA WALKER WITH ASSISTANCE, PT VOIDED BY SELF WITH NO DIFFICULTY, PT BACK TO BED, RATES ABD PAIN 12/28, STATES "IT'S GETTING BETTER", DENIES FURTHER NEEDS
--- NOTE | 2017-01-28 21:15 | NUR ---
PICC LINE FLUSHED, ADM ZOFRAN SIVP, PICC LINE FLUSHED, ADM TORADOL SIVP, PICC LINE FLUSHED, INFORMED PT THAT I WILL BE IN SHORTLY TO DO DRESSING CHANGE, PT VERBALIZES UNDERSTANDING, DENIES FURTHER NEEDS
--- NOTE | 2017-01-28 22:00 | NUR ---
PT COMPENSATION/BENEFITS SPECIALIST LIGHT, PT UP TO BR VIA WALKER WITH ASSISTANCE, PT VOIDED BY SELF WITH NO DIFFICULTY, EMPTIED ILEOSTOMY POUCH, PT BACK TO BED, INFORMED PT THAT OLGA AND I WILL BE BACK SHORTLY TO DO DRESSING CHANGE, PT VERBALIZES UNDERSTANDING, DENIES FURTHER NEEDS
--- NOTE | 2017-01-28 22:30 | NUR ---
ABD DRESSING CHANGED PER THIS RN PER MD ORDERS, OLGA BILLY, RN CHANGED PICC LINE DRESSING PER PICC LINE KIT, PT REQUESTS PAIN MED WHEN DUE, INFORMED PT IT WAS DUE AROUND 11:30PM AND THAT I WILL BRING IT IN WHEN THE ANTIBIOTIC IS DUE, PT VERBALIZES UNDERSTANDING, DENIES FURTHER NEEDS
--- NOTE | 2017-01-28 23:32 | NUR ---
PT AWAKE, SALINE LOCK CONVERTED TO IV, PRIMARY LINE STARTED, FLUSHED, MAXIPINE HUNG IVPB, PT C/O ABD PAIN, ADM DILAUDID PO PER MD ORDERS, SEE EMAR, PT DENIES FURTHER NEEDS
--- NOTE | 2017-01-29 00:59 | NUR ---
PT SENIOR UX DESIGNER LIGHT, PT UP TO BEDSIDE COMMODE, PT VOIDED BY SELF WITH NO DIFFICULTY, PT BACK TO BED, IV CONVERTED TO SALINE LOCK, PT DENIES FURTHER NEEDS OR PAIN
--- NOTE | 2017-01-29 01:40 | NUR ---
PT RESTING WITH EYES CLOSED, RESP QUIET, NO DISTRESS NOTED, LEFT UNDISTURBED AT THIS TIME
--- NOTE | 2017-01-29 03:03 | NUR ---
PT RESTING WITH EYES CLOSED, RESP QUIET, NO DISTRESS NOTED, LEFT UNDISTURBED AT THIS TIME
--- NOTE | 2017-01-29 03:28 | NUR ---
PT INFORMATION SYSTEMS AUDIT MANAGER LIGHT, PT UP TO BEDSIDE COMMODE, VOIDED BY SELF WITH NO DIFFICULTY, PT BACK TO BED, C/O ABD PAIN, ADM DILAUDID PO PER MD ORDERS, SEE EMAR, PT REQUESTS TORADOL AROUND 5:30/6:00 THIS MORNING, INFORMED PT THAT I WILL ADM IT AROUND THAT TIME, PT DENIES FURTHER NEEDS
--- NOTE | 2017-01-29 05:33 | NUR ---
PT RESTING WITH EYES CLOSED, RESP QUIET, NO DISTRESS NOTED, LEFT UNDISTURBED AT THIS TIME
--- NOTE | 2017-01-29 06:04 | NUR ---
PT RESTING WITH EYES CLOSED, AROUSES TO SOFT VERBAL STIMULATION, ADM 0600 MED PO PER MD ORDERS, PICC LINE FLUSHED, ADM TORADOL SIVP PER MD ORDERS, SEE EMAR, PICC LINE FLUSHED, PT UP TO BEDSIDE COMMODE, VOIDED BY SELF WITH NO DIFFICULTY, ILEOSTOMY EMPTIED, PT REQUESTED AND SERVED COFFEE, DENIES FURTHER NEEDS
--- NOTE | 2017-01-29 07:12 | NUR ---
SHIFT REPORT TO DAY SHIFT
[2017-01-29 08:00] VITALS: BP 157/46
--- NOTE | 2017-01-29 08:00 | NUR ---
SHIFT ASSMT COMPLETED.MYRNAG TO ABD C/D/I.
--- NOTE | 2017-01-29 12:00 | NUR ---
DENIES NEEDS.EATING LUNCH.
--- NOTE | 2017-01-29 14:51 | RHP ---
PATIENT: TAO JONES MEDICAL RECORD: [id number] ACCOUNT: [id number] LOCATION:[facility]1117 : 55 ADMISSION DATE: 01/27/17 REHABILITATION HISTORY AND PHYSICAL EXAMINATION POST ADMISSION PHYSICIAN EXAMINATION Post-Admission Physical Examination and History and Physical DATE OF ADMISSION: 01/27/2017 ADMITTING DIAGNOSIS: Necrosis of ileostomy. HISTORY OF PRESENT ILLNESS: The patient is a 61-year-old female patient who is admitted to inpatient rehab with debility and diagnosed with necrosis of ileostomy this is secondary to a long complicated abdominal surgery that includes colectomy, colostomy, and most recently an ileostomy revision. She has had a colonoscopy reversal with conversion to a subtotal colectomy, incisional hernia with multiple incisional hernias, recent abdominal wall reconstruction in an outside hospital. Recent notes from Dr. Griffiths during her admission on 01/04/2017 stated that she underwent ileostomy revision on 12/30/2016 and was admitted with abdominal pain. She was readmitted for a total abdominal pain necrosis of the ileostomy on 01/14/2017 where she had a PICC line placed. Dr. Yang performed an ileostomy revision on 01/15/2017. On 01/19/2107, she was still having loss of ileostomy drainage and pain, was taken back to the OR for ileostomy repositioning. Prior to the past admission, she reports that she was completely independent with ADLs and mobility and lived alone. She is currently max assist with ambulation, moderate assist with ADLs. She will require medical management of a physician at least 3-5 days a week with 24-hour supervision by an RN. She is also requiring intensive therapy with PT and OT as well as speech therapy and also I wish her dietitian to assist with dietary upgrades and safety in order to return back to her prior level of functioning. COMORBIDITIES: In this patient include necrosis ileostomy, abdominal wall cellulitis, abdominal pain, tobacco dependent syndrome, colon cancer, depression, anxiety, bipolar, and PTSD. PAST MEDICAL HISTORY: Significant for depression, anxiety, bipolar, and PTSD. PAST SURGICAL HISTORY: Includes gallbladder surgery, cataract surgery, hysterectomy, colon resection, hernia repair, tubal ligation, abdominal colectomy, incisional hernia repair with abdominal reconstruction and ileostomy relocation. ALLERGIES: LEXAPRO, PENICILLIN, SULFA, CODEINE, HYDROCODONE, LIPITOR, PRILOSEC, CRESTOR, AND LYRICA. CURRENT MEDICATIONS: Include polyethylene glycol 17 grams in 8 ounce of water daily, Protonix 40 mg daily, Zanaflex 4 mg q.8 hours p.r.n., Zofran 4 mg q.4 hours p.r.n. nausea and vomiting, Toradol as needed, Dilaudid 2 mg q.4 hours, Maxipime 1 gram q.12 hours, and Excedrin as needed for headaches. HABITS: Does have a history of tobacco use. FAMILY HISTORY: Noncontributory. HISTORY AND PHYSICAL [id number] TAO JONES SOCIAL HISTORY: The patient hopes to return back home and get back to her prior level of functioning. REVIEW OF SYSTEMS: GENERAL: Does complain of weakness and fatigue. HEENT: She denies cold, cough, or congestion. CARDIOVASCULAR: Denies any chest pain. LUNGS: Denies any shortness of breath. PHYSICAL EXAMINATION: VITAL SIGNS: Stable. She is afebrile. GENERAL: Well-developed female, in no acute distress, alert upon exam. HEENT: Normocephalic and atraumatic. Mucosa moist. NECK: Supple. No lymphadenopathy. LUNGS: Clear at this time. HEART: Regular rate and rhythm. ABDOMEN: Soft, although she does have some mild tenderness. She has normal bowel sounds and numerous incisional areas noted. NEUROLOGIC: Seems intact. LABORATORY DATA: Her white count 7.0, H&H 9.5 and 29.1, her platelet count is 328. Sodium is 137, potassium 3.9, BUN and creatinine of 12 and 0.7 and blood sugar was noted to be 98. ASSESSMENT: This 61-year-old female patient admitted to rehab with a working diagnosis of necrosis of ileostomy complicated by numerous abdominal surgeries. The patient has potential to make improvement. We instituted the following multidisciplinary therapies including to, but not limited to physical, occupational, respiratory, speech, nutritional services, prosthetics, and orthotics. Given her complex condition and risk for more complications, rehabilitation services cannot be provided at a lower level of care such as a halfway facility. PLAN: 1. Admit to [facility] rehab for intensive inpatient therapy to include the following disciplines: A. Physical therapy to improve gait, all transfer skills and bed mobility to a modified independent level. B. Occupational therapy to improve activities of daily living to a modified independent level. C. Case management to assist with discharge planning and placement options. D. Nutrition to assist with nutritional needs. E. Rehabilitation nursing to assist in monitoring the patient's underlying medical conditions and to assist with any type of bowel or bladder management. 2. The patient's current medication and medical care will be continued. 3. The patient will be placed on standard fall precautions. 4. The patient's estimated length of stay is approximately 7-10 days. 5. We will discuss this patient during care team staff meeting this week and should be able to get her back home. TRANSINT:[id number] Voice Confirmation ID: [id number] DOCUMENT ID: [id number] CANDACE notes whether there has been none or any medical/functional change since admission: HISTORY AND PHYSICAL [id number] TAO JONES - No change since prescrenn. CANDACE attests patient continues to be appropriate for IRF: - Continues to be appropriate. SARAH CORCORAN MD at 1451 CC: [id number] DICTATION DATE: 01/28/17 0859 ASSISTANT ENGINEER: 01/28/17 1003 ADM IN [facility] [address] [id number]
--- NOTE | 2017-01-29 15:00 | NUR ---
ROUNDING AND OBSERVED ABD WOUND.PACKING REPLACED AFTER REMOVING SOME JESSIE LEAVING LOWER PORTION OPEN.PACKED WITH 2 INCH BURTON LOOSELY.COVERED WITH 4X4'S AND TAPED IN PLACE.
[2017-01-29] MEDS ORDERED: MIRALAX17 GM PO (15:11)
--- NOTE | 2017-01-29 15:30 | NUR ---
SPOKE WITH AND WILL DISCHARGE AND ADMIT TO ACUTE FLOOR FOR PLAN SURGERY 01/30/17.
--- NOTE | 2017-01-29 17:35 | NUR ---
REPORT CALLED TO FRANCISCO JAVIER YOUNGER.
--- NOTE | 2017-01-29 18:35 | NUR ---
MEDICATED WITH DILAUDID AT REQUEST FOR PAIN.AND TAKEN UPSTAIRS TO ROOM 2226/WC.
--- NOTE | 2017-02-02 12:17 | NUR ---
LATE ENTRY: PATIENT DISCHARGED FORM REHAB AND ADMITTED TO ACUTE FLOOR DUE TO PENDING SURGERY ON 01/29/17.
--- NOTE | 2017-03-17 10:49 | DS ---
PATIENT:TAO JONES :55 MEDICAL RECORD: [id number] DISCHARGE SUMMARY ADMISSION DATE: 01/27/17 DISCHARGE DATE: 01/29/17 This is a discharge from inpatient rehab dated 01/29/2017. PRIMARY DIAGNOSES: Decreased functional ability and ability to provide activities of daily living secondary to weakness and debility with necrosis of an ileostomy. SECONDARY DIAGNOSES: 1. Abdominal wall cellulitis. 2. Tobacco abuse. 3. Colon cancer. 4. Depression/anxiety. 5. Posttraumatic stress disorder. 6. Bipolar disorder. CONSULTS THIS HOSPITALIZATION: Surgery with Dr. Yang. HOSPITAL COURSE: Full H&P is located elsewhere on the chart on this 61-year-old female who was admitted to inpatient rehab for physical therapy and occupational therapy to improve gait, transfer skills, bed mobility, and activities of daily living to a modified independent level. She was evaluated by PT and OT and their plans of care were followed. She required long-term care for observation and assessment, medication administration, as well as wound care and monitoring of surgical incision. She was on Maxipime for antibiotic coverage. She was cooperative with therapies with some progress towards goals. She had a change in her abdominal wound, prompting surgical reconsult. She was seen by Dr. Yang with plan to transfer to the acute facility for secondary closure of abdominal wound. DISCHARGE MEDICATIONS: As per discharge medication reconciliation. DISCHARGE DISPOSITION: The patient is discharged to the acute hospital for higher level of care and for a planned abdominal surgery. She will continue her current diet and level of activity and will follow with primary care and specialists in the acute facility. At least 30 minutes was spent in this discharge activity. TRANSINT:[id number] Voice Confirmation ID: [id number] DOCUMENT ID: [id number] Dictated By: KATINA PRUITT I have interviewed/examined the above patient and agree with these documented findings. DISCHARGE SUMMARY REPORT [id number] KARENTAOSARAH FRANCE MD at 1400 at 1049 CC: [id number] DICTATION DATE: 03/15/171947 ICT CUSTOMER SUPPORT OFFICER: 03/16/17 1132 DIS IN 01/29/17 [id number] [place] [address]
== END 2017-01-29 18:00 | disposition short-term general hospital (02) | DRG 394 ==
LOC: D.REHAB 16:54
PROVIDERS: ADMIT Emergency Medicine
DX: K94.19 Other complications of enterostomy (principal); C18.9 Malignant neoplasm of colon, unspecified; L03.311 Cellulitis of abdominal wall; N39.0 Urinary tract infection, site not specified; R53.81 Other malaise; R10.9 Unspecified abdominal pain; F17.200 Nicotine dependence, unspecified, uncomplicated; F31.9 Bipolar disorder, unspecified; F43.10 Post-traumatic stress disorder, unspecified; E86.0 Dehydration

== ENCOUNTER 2017-01-29 19:05 | Inpatient (IN) | payer MEDICARE ==
--- NOTE | 2017-01-29 19:00 | NUR ---
REPORT RECEIVED AND CARE OF PT ASSUMED. PT LYING IN SEMI BLACKWELL'S POSITION WATCHING TV. LEFT PICC LINE SALINE LOCKED. ASSISTED PT IN EMPTYING ILEOSTOMY BAG. WILL CONTINUE TO MONITOR FOR NEEDS.
[~2017-01-29 19:05] MED LIST changes: +MIRALAX17 GM PO
[2017-01-29 20:05] VITALS: BP 133/76
--- NOTE | 2017-01-29 21:45 | NUR ---
HS MEDICATIONS GIVEN TO INCLUDE DILAUDID PO 2 MG AND ZANAFLEX 4 MG PO PER PRN ORDERS, PER PT REQUEST FOR PAIN AT LEVEL 10/10. WILL CONTINUE TO MONITOR FOR NEEDS.
[2017-01-29 21:50] VITALS: BP 133/76; BMI 26.1
[2017-01-30] VITALS (7 sets, daily range): BP systolic 116–148; BP diastolic 58–79; BMI 26.0
--- NOTE | 2017-01-30 03:13 | NUR ---
GAVE DILAUDID 2 MG PO PER PT REQUEST FOR PAIN, PER PRN ORDER. WILL MONITOR FOR EFFECTIVENESS.
--- NOTE | 2017-01-30 05:00 | NUR ---
PT REPORTS PAIN STILL AT 9/10. GAVE ZANAFLEX PER PRN ORDER. WILL CONTINUE TO MONITOR FOR NEEDS.
--- NOTE | 2017-01-30 07:30 | NUR ---
RESTING QUIETLY WITH EYES CLOSED. RESP EVEN,NONLABORED.
--- NOTE | 2017-01-30 09:00 | NUR ---
ASSESSMENT COMPLETE. L PICC LINE PATENT. DRESSING TO R ABDOMEN C/D/I. ILEOSTOMY PATENT WITH LIQUID STOOL NOTED IN BAG. NPO FOR SURGERY TODAY. DENIES ANY NEEDS AT THIS TIME.
--- NOTE | 2017-01-30 12:20 | NUR ---
OFF FLOOR TO OR VIA BED.
--- NOTE | 2017-01-30 14:22 | NUR ---
Patient Name: TAO JONES Admission Status: Elective Accout number: [id number] Admission Date: 01-29-2017 : 1955 Admission Diagnosis:DISRUPTION OF EXTERNAL OPERATION (SURGICAL) WOUND, NEC, Attending: RONNIE SONG Current LOS: 1 Anticipated DC Date: Planned Disposition: Primary Insurance: MEDICARE A & B Discharge Planning Comments: Dr Song called and asked me to set up home health on patient who he plans on discharging tomorrow. Patient was current with [facility] home health. CM called Harjinder with [facility] and let him know that the patient should be discharging home tomorrow with PT. wound care and nursing. CM will continue to follow and assist with discharge planning needs Breast Trimmer: Conchita Maldonado
--- NOTE | 2017-01-30 14:35 | NUR ---
ORDERS AND FACESHEET SENT TO [facility]
--- NOTE | 2017-01-30 14:53 | NUR ---
RECEIEVED BACK TO ROOM FROM RECOVERY ROOM. VSS. DRESSING TO ABDOMEN C/D/I.
--- NOTE | 2017-01-30 16:06 | NUR ---
DILAUDID PO GIVEN FOR COMPLAINT OF INCISIONAL PAIN. DENIES ANY FURTHER NEEDS AT THIS TIME.
--- NOTE | 2017-01-30 19:55 | NUR ---
PATIENT GIVEN PAIN MEDS PO, WALKER TO HELP AMBULATE, ILEOSTOMY BAG CHANGED OUT, DEPENDS, AND SECOND GOWN. PATIENT HAS STARTED TO AMBULATE
[2017-01-31] VITALS: BP 138/60
--- NOTE | 2017-01-31 02:10 | NUR ---
PT RESTING QUIETLY, EYES CLOSED. RESP EVEN, UNLABORED. NO DISTRESS NOTED. CONTINUE RN CORONARY CARE UNIT'S PLAN OF CARE.
[2017-01-31 04:21] VITALS: BP 150/73
--- NOTE | 2017-01-31 07:00 | NUR ---
AWAKE AND ALERT AT THIS TIME. RESPIRATIONS EVEN AND NON LABORED. ILEOSTOMY SITE WITH BAG DRAINAGE PATENT. DRESSING TO ABDOMEN CLEAN, DRY AND INTACT. PROVIED PT WITH COFFEE PER HER REQUEST. CALL LIGHT IN REACH, WILL CONTINUE WITH PLAN OF CARE.
--- NOTE | 2017-01-31 08:27 | NUR ---
PRN DILAUDID ADMINISTERED AT THIS TIME FOR PAIN 10/27.
--- NOTE | 2017-01-31 09:20 | NUR ---
DRESSING CHANGE TO ABDOMEN DONE PER ORDERS AT THIS TIME. PT TOLERATED WITH MODERATE COMPLAINTS OF PAIN. NOTIFIED TMR TEACHER OF NEED FOR PICC LINE REMOVAL.
[2017-01-31 09:24] VITALS: BP 146/72
--- NOTE | 2017-01-31 10:17 | NUR ---
PICC line removed from Left Upper Arm to 43cm with intact tip. Pt c/o of slight nausea after completed. Stated she was "a little nauseated before", otherwise tolerated well. Sight was cleaned with chloraprep prior to removal, covered with sterile 2x2 and tegaderm. Pt instructed to remove dresing in 24 hours and if needed, replace with bandaide.
--- NOTE | 2017-01-31 11:06 | NUR ---
D/C HOME AT THIS TIME. DENIES QUESTIONS OR CONCERNS RELATED TO DISCHARGE.
--- NOTE | 2017-01-31 20:07 | NUR ---
LATE ENTRY 929 PATIENT FOR DISCHARGE TO HOME. ADVISED PATIENT, WEEKDAY CM HAD SENT REFERRAL TO [facility] ON THURSDAY. CM NOTIFIED [facility] OF DISCHARGE AND FAXED D/C INSTRUCTIONS. CM REQUESTED PRIMARY NURSE TO SEND DRESSINGS FOR 2-3 DAYS OF CHANGES. PATIENT HAD TRANSPORTATION TO HOME. DENIED ANY OTHER NEEDS. MAXI WEB PAGE DOWN.
--- NOTE | 2017-02-03 09:16 | NUR ---
patient discharge home with [facility]
--- NOTE | 2017-02-06 13:11 | OP ---
PATIENT NAME: TAO OJNES MEDICAL RECORD: [id number] :55 LOCATION:[facility] [place].2226 ADMISSION DATE:01/29/17 SURGEON: RONNIE YANG MD DATE OF OPERATION: 01/30/2017 PREOPERATIVE DIAGNOSES: 1. Open abdominal wound. 2. Recent ileostomy necrosis status post abdominal exploration. 3. History of colon cancer. 4. Bipolar disorder. 5. Anxiety disorder. POSTOPERATIVE DIAGNOSES: 1. Open abdominal wound. 2. Recent ileostomy necrosis status post abdominal exploration. 3. History of colon cancer. 4. Bipolar disorder. 5. Anxiety disorder. PROCEDURE: Closure of abdominal wound by tertiary intention. SURGEON: Ronnie Yang MD REPORT OF PROCEDURE: The patient's abdomen and open wound were all prepped and draped in sterile fashion. We irrigated out the midline abdominal incision and saw that the fascia was healing up appropriately. The skin in the lower half of the abdomen was opened. This was reapproximated with multiple interrupted 2-0 nylons in a vertical mattress fashion. There was good approximation of the tissue with little to no tension. The patient also had old ileostomy site in the right upper quadrant, which was very open. I went ahead and put 2 sutures in to reapproximate that tissue and left a small opening for packing. We then packed the wound with half inch packing strips as bhavana between all of the sutures and then covered the wound appropriately with gauze and tape. COMPLICATIONS: None. CONDITION: Stable. ANESTHESIA: TIVA. BLOOD LOSS: Minimal. TRANSINT:[id number] Voice Confirmation ID: [id number] DOCUMENT ID: [id number] RONNIE YANG MD at 1311 CC: [id number] DICTATION DATE: 01/30/17 1349 WEARING APPAREL PRESSER: 01/30/17 1456 DIS IN 01/31/17 [id number] [place] [address]
--- NOTE | 2017-03-09 14:45 | DS ---
PATIENT:TAO JONES :55 MEDICAL RECORD: [id number] DISCHARGE SUMMARY ADMISSION DATE: 01/29/17 DISCHARGE DATE: 01/31/17 ADMISSION DIAGNOSES: 1. Open abdominal wound. 2. Ileostomy necrosis status post revision. DISCHARGE DIAGNOSES: 1. Open abdominal wound. 2. Ileostomy necrosis status post revision. PROCEDURE: Abdominal wound closure. CONSULTATIONS: None. REPORT OF HOSPITALIZATION: The patient was admitted back to the hospital from inpatient rehab for closure of her lower abdominal wound, which had dehisced. The patient's fascia was intact, but the skin and subcutaneous fatty tissue had opened up. The patient was taken to the operating room for closure and revision. Postoperatively, the patient did well and has actually been doing well enough in rehab that she felt to be stable for discharge home. Her new indwelling ileostomy was working well, and she was having no issues with placing an ostomy appliance. For this reason, she was felt to be stable for discharge home. DISCHARGE INSTRUCTIONS: Return to clinic or call with any questions or concerns, fevers, chills, nausea, vomiting, or worsening abdominal pain. ACTIVITIES: No heavy lifting or straining for 6 weeks postoperatively. FOLLOWUP: Followup is in clinic with me in 1-2 weeks. DISCHARGE MEDICATIONS: Omeprazole 40 mg daily, Excedrin every 4 hours p.r.n., Zanaflex 4 mg every 8 hours p.r.n., Dilaudid 2 mg every 4 hours p.r.n., and MiraLax 17 grams p.o. daily p.r.n. TRANSINT:[id number] Voice Confirmation ID: [id number] DOCUMENT ID: [id number] RONNIE SONG MD at 1445 CC: [id number] DICTATION DATE: 03/03/17 1504 WORKFORCE SERVICES REPRESENTATIVE: 03/03/17 1515 DIS IN 01/31/17 [address] [id number]
== END 2017-01-31 11:07 | disposition home health service (06) | DRG 348 ==
LOC: D.MS 19:05
PROVIDERS: ADMIT Surgery
PROC: 0WQFXZ2 Repair Abdominal Wall, Stoma, External Approach (ICD-10-PCS; principal; 2017-01-30)
DX: K94.19 Other complications of enterostomy (principal); T81.31XA Disruption of external operation (surgical) wound, not elsewhere classified, initial encounter; Y82.8 Other medical devices associated with adverse incidents; Y83.8 Other surgical procedures as the cause of abnormal reaction of the patient, or of later complication, without mention of misadventure at the time of the procedure; F17.200 Nicotine dependence, unspecified, uncomplicated; K21.9 Gastro-esophageal reflux disease without esophagitis

== ENCOUNTER → 2017-03-26 08:53 | Outpatient (CLI) | payer MEDICARE ==
[2017-01-30 10:28] VITALS: BMI 26.0
== END | disposition home or self-care (01) ==
LOC: D.MRI 03-18 13:30
DX: M54.5 Low back pain (principal)

== ENCOUNTER → 2017-05-14 06:56 | Outpatient (CLI) | payer MEDICARE ==
[2017-01-30 10:28] VITALS: BMI 26.0
== END | disposition home or self-care (01) ==
LOC: D.US 06:56
DX: E04.1 Nontoxic single thyroid nodule (principal)

== ENCOUNTER → 2017-06-12 19:30 | Outpatient (CLI) | payer MEDICARE ==
[2017-01-30 10:28] VITALS: BMI 26.0
== END | disposition home or self-care (01) ==
LOC: D.LABREF 19:30
DX: S31.109A Unspecified open wound of abdominal wall, unspecified quadrant without penetration into peritoneal cavity, initial encounter (principal)

== ENCOUNTER → 2017-06-15 12:34 | Outpatient (CLI) | payer MEDICARE ==
[2017-01-30 10:28] VITALS: BMI 26.0
== END | disposition home or self-care (01) ==
LOC: D.RAD 12:34
DX: R13.10 Dysphagia, unspecified (principal)

== ENCOUNTER → 2017-07-17 08:09 | Outpatient (CLI) | payer MEDICARE ==
[2017-01-30 10:28] VITALS: BMI 26.0
[~2017-07-17 08:09] MED LIST changes: +EXCEDRIN EXTRA1 TAB PO
== END | disposition home or self-care (01) ==
LOC: D.CT 08:09
DX: I71.4 Abdominal aortic aneurysm, without rupture (principal)

== ENCOUNTER 2017-08-24 10:44 | Outpatient (CLI) | payer MEDICARE ==
[~2017-08-24] VITALS: Ht 160 cm; Wt 60.5 kg
--- NOTE | ~2017-08-24 | HEMODYNAMI ---
PATIENT:TAO JONES MEDICAL RECORD: [id number] : 55 LOCATION:[facility] ADMISSION DATE: 08/24/17 Generatedon:08/24/201714:02 Patient name: TAO JONES Patient #: [id number] SSN: : 1955 Date of study: 08/24/2017 Page: Of Hemodynamic Procedure Report Patient Data Patient Demographics Procedure consent was obtained First Name: TAO Gender: Female Last Name: KAREN : 1955 [facility] Initial: KEZIA Age: 62 year(s) Patient #: [id number] Race: Unknown Additional ID: [id number] Contact details Address: [address] [place] [address] State: [place] City: [facility] Zip code: [address] Past Medical History Allergies Allergen Reaction Date Comments Reported Other allergy 08/24/2017 CODEINE, CRESTOR, HYDROCODONE, LEXAPRO, LIPITOR, NEXIUM, OXYCODONE, PCN, SULFA Admission Admission Data Admission Date: 08/24/2017 Admission Time: 10:44 Procedure Procedure Types Cath Procedure Diagnostic Procedure LHC LHC w/Coronaries Peripheral Cath Diagnostic Procedure Cath Peripheral Qsvyn-Lxyfhge-Sfv-Off Procedure Description Procedure Date Procedure Date: 08/24/2017 Procedure Start Time: 13:43 Procedure End Time: 13:58 Procedure Staff Name Function Jamie Mar MD Performing Physician Floyd Guzmán RT Monitor Khalida Weaver RT Scrub Yelena Barahona RN Nurse Procedure Data Cath Procedure Fluoroscopy Diagnostic fluoroscopy Total fluoroscopy Time: 4 time: 4 min min Diagnostic fluoroscopy Total fluoroscopy dose: 276 dose: 276 mGy mGy Contrast Material Contrast Material Type Amount (ml) Isovue 300 93 Entry Location Entry Primary Successful Side Size Upsize Upsize Entry Closure Succes sful Closure Location (Fr) 1 (Fr) 2 (Fr) Remarks Device Remarks Femoral Right 5 Fr Exoseal artery Estimated blood loss: 10 ml Diagnostic catheters Device Type Used For End Catheter Placement MULTIPACK JL 4.0 5Fr Procedure catheter MULTIPACK 3DRC 5Fr Procedure catheter MULTIPACK Pigtail 5 Fr Procedure catheter DIAGNOSTIC AL 1 5Fr Procedure catheter ([id number]) Procedure Complications No complications Procedure Medications Medication Administration Route Dosage Oxygen NC 2 l/min Lidocaine 2% added to field 20 Heparin Flush Bag added to field 2 bags (1000units/500ml NS) 0.9% NaCl I.V. 100 ml/hr Versed I.V. 1 mg Fentanyl I.V. 50 mcg Versed I.V. 1 mg Fentanyl I.V. 50 mcg Fentanyl I.V. 25 mcg Versed I.V. 0.5 mg Hemodynamics Rest Heart Rate: 84 (bpm) Pressure Samples Time Site Value (mmHg) Purpose Heart Use Rate(bpm) 13:53 LV 121/5,11 Snapshot 92 Gradients Valve Time Site Site Mean SEP/DFP Peak To Heart Use 1 2 (mmHg) (sec/min) Peak Rate (mmHg) (bpm) Aortic 13:53 LV AO 93 Snapshots Pre Cath Intra NCS Post Cath Vital Signs Time Heart Resp SPO2 etCO2 NIBP (mmHg) Rhythm Pain Sedation Rate (ipm) (%) (mmHg) Status Level (bpm) 13:39:31 76 17 100 0.7 132/76(105) NSR 0 (11) 10(A) , No pain 13:44:10 80 16 99 0 125/67(96) NSR 0 (11) 9(A) , No pain 13:48:46 85 15 99 14.3 132/72(103) NSR 0 (11) 9(A) , No pain 13:53:23 90 15 95 0 110/61(101) NSR 0 (11) 9(A) , No pain 13:58:32 97 16 99 0 118/63(91) NSR 0 (11) 10(A) , No pain Medications Time Medication Route Dose Verified Delivered Reason Notes Effe ctiveness by by 13:37:22 Oxygen NC 2 Jamie Kirk used for l/min [facility] Barahona RN procedure 13:37:28 Lidocaine 2% added 20ml Jamie Ayala for local to vial [facility] anesthetic field MD ARCE 13:37:34 Heparin Flush added 2 Jamie Ayala used for Bag to bags [facility] procedure (1000units/500ml field MD ARCE NS) 13:37:44 0.9% NaCl I.V. 100 Jamie Buffie Per ml/hr [facility] Barahona RN physician 13:41:04 Fentanyl I.V. 50 Jamie Kirk for mcg [facility] Barahona RN sedation 13:41:58 Versed I.V. [address] [facility] Barahona RN sedation 13:44:27 Versed I.V. [address] [facility] Barahona RN sedation 13:44:31 Fentanyl I.V. 50 Jamie Kirk for mcg [facility] Jose Carlos aBrahona RN sedation 13:46:28 Versed I.V. 0.5 [address] for mg [facility] Carlos Barahona RN sedation 13:46:46 Fentanyl I.V. 25 Jamie Kirk for mcg [facility] Barahona RN sedation Procedure Log Time Note 13:00:23 Khalida Weaver RT(R) sent for patient. Start room use. 13:15:00 Signed procedure consent form obtained from patient. 13:15:02 Time tracking: Regular hours (M-F 7:00 - 5:00) 13:15:05 Plan of Care:Hemodynamics will remain stable., Cardiac rhythm will remain stable., Comfort level will be maintained., Respiratory function will remain adequate., Patient/ family verbilizes understanding of procedure., Procedure tolerated without complication., Recovers from procedure without complications.. 13:15:13 H&P Date Dictated: 08/11/2017 Within 30 days and on chart., H&P Addendum completed by physician on day of procedure. (MUST COMPLETE FOR ALL OUTPATIENTS). 13:15:45 Patient allergic to Other allergyCODEINE, CRESTOR, HYDROCODONE, LEXAPRO, LIPITOR, NEXIUM, OXYCODONE, PCN, SULFA 13:25:19 Patient received from Pre/Post Procedure Room to CCL 1 Alert and oriented. Tansferred to table in Supine position. 13:25:21 Warm blankets applied, and madeline hugger turned on for patient comfort. 13:25:21 Correct patient and procedure confirmed by team. 13:25:22 ECG and BP/O2 sat monitors applied to patient. 13:37:22 Oxygen 2 l/min NC was administered by Yelena Barahona RN; used for procedure; 13:37:28 Lidocaine 2% 20ml vial added to field was administered by Jamie Mar MD; for local anesthetic; 13:37:34 Heparin Flush Bag (1000units/500ml NS) 2 bags added to field was administered by Jamie Mar MD; used for procedure; 13:37:44 0.9% NaCl 100 ml/hr I.V. was administered by Yelena Barahona RN; Per physician; 13:38:54 Vital chart was started 13:39:21 Baseline sample Acquired. 13:39:25 Rhythm: sinus rhythm 13:39:26 Full Disclosure recording started 13:39:27 Pre-procedure instructions explained to patient. 13:39:28 Pre-op teaching completed and patient verbalized understanding. 13:39:30 Family in patients room. 13:39:31 Patient NPO since Midnight. 13:39:33 Is the patient allergic to Iodine/contrast media? No. 13:39:35 Is patient on blood thinner?No 13:39:48 Patient diabetic? No. 13:39:51 Previous problem with sedation/anesthesia? No ? 13:39:52 Snore? Yes 13:39:53 Sleep apnea? No 13:39:54 Deviated septum? No 13:39:55 Opens mouth fully? Yes 13:39:56 Sticks out tongue? Yes 13:39:58 Airway obstruction? No ? 13:40:01 Dentures? Yes OUT 13:40:16 Pre procedure: right dorsailis pedis pulse 1+ Palpable, but thready & weak; easily obliterated 13:40:18 Patient pain scale 0/10 ?. 13:40:25 IV patent on arrival in right forearm with 0.9% NaCl at [facility]. 13:40:27 Lab results completed and on chart. 13:40:29 Right groin area was prepped with chlora-prep and draped in sterile fashion 13:40:31 Alarms reviewed by R. N. 13:40:32 Sharps counted by scrub and verified by R.N. 13:40:33 --------ALL STOP TIME OUT------ 13:40:33 Final Timeout: patient, procedure, and site verified with staff and physician. All members of the team are in agreement. 13:40:37 Right groin site verified by team. 13:40:42 Physical assessment completed. ASA score P 2 - A patient with mild systemic disease as per Jamie Mar MD. 13:40:45 Sedation plan: IV Moderate Sedation Medication:Versed, Fentanyl 13:41:04 Fentanyl 50 mcg I.V. was administered by Yelena Barahona RN; for sedation; 13:41:58 Versed 1 mg I.V. was administered by Yelena Barahona RN; for sedation; 13:43:15 Use device set Femoral Dx 13:43:17 Tegaderm 4 x 4 (1626W) opened to sterile field. 13:43:18 ACIST Manifold (35318) opened to sterile field. 13:43:19 ACIST Hand Control (79647) opened to sterile field. 13:43:20 ACIST Syringe (91109) opened to sterile field. 13:43:21 Bag Decanter (2002S) opened to sterile field. 13:43:21 Medline Cath Pack ([id number]) opened to sterile field. 13:43:22 DIAGNOSTIC WIRE .035 260cm J wire (540360) opened to sterile field. 13:43:25 DIAGNOSTIC Multipack 5Fr catheter set (VP5224) opened to sterile field. 13:43:27 PERCUTANEOUS ENTRY 19GA needle opened to sterile field. 13:43:31 SHEATH Prelude 5Fr 0.035 (VMG-3P-32-035) opened to sterile field. 13:43:36 Procedure started. 13:43:41 Local anesthetic to right femoral artery with Lidocaine 2% by Jamie Mar MD.INITIAL ACCESS ONLY 13:44:00 A 5 Fr sheath was inserted into the Right Femoral artery 13:44:20 A MULTIPACK JL 4.0 5Fr catheter was advanced over the wire and used for Procedure. 13:44:27 Versed 1 mg I.V. was administered by Yelena Barahona RN; for sedation; 13:44:31 Fentanyl 50 mcg I.V. was administered by Yelena Barahona RN; for sedation; 13:44:35 LCA angiography performed. 13:45:01 Catheter removed. 13:45:05 A MULTIPACK 3DRC 5Fr catheter was advanced over the wire and used for Procedure. 13:45:58 RCA angiography performed. 13:45:59 Catheter removed. 13:46:06 A MULTIPACK Pigtail 5 Fr catheter was advanced over the wire and used for Procedure. 13:46:28 Versed 0.5 mg I.V. was administered by Yelena Barahona RN; for sedation; 13:46:46 Fentanyl 25 mcg I.V. was administered by Yelena Barahona RN; for sedation; 13:49:03 Unable to cross Aortic valve. 13:49:50 EXOSEAL 5Fr (EX500) opened to sterile field. 13:49:54 Abdominal Aortagram was performed. 13:52:11 Right leg runoff performed. 13:52:12 Left leg runoff performed. 13:52:15 Catheter removed. 13:53:30 ROADRUNNER .035 260 glide wire ([id number]) opened to sterile field. 13:53:34 A DIAGNOSTIC AL 1 5Fr catheter ([id number]) was advanced over the wire and used for Procedure. 13:53:52 Roadrunner wire advanced to attempt to cross valve. 13:54:02 LV angiography performed. 13:54:04 LV gram done using BASHIR 13:54:12 EF : 55 % 13:54:13 LV hemodynamics recorded. 13:54:16 Injector settings: Ml/sec: 4, Volume: 8, 13:54:25 Catheter removed. 13:55:47 Sheath removed intact; hemostasis achieved with Exoseal to the Right Femoral artery. 13:55:50 Procedure ended.(Physican Out) 13:56:08 Fluoroscopy time 04.00 minutes. 13:56:13 Flurop Dose total: 276 13:56:13 Fluoroscopy dose: 276 mGy 13:56:16 Contrast amount:Isovue 300 93ml. 13:56:35 Sharps counted by scrub and verified by R.N. 13:56:36 Insertion/operative site no bleeding no hematoma. 13:56:41 Post-op/insertion site Right Femoral artery dressed using a 4 x 4 and Tegaderm. 13:56:43 Post Procedure Pulses reassessed and unchanged 13:56:46 Post-procedure physical assessment completed. ASA score P 2 - A patient with mild systemic disease as per Jamie Mar MD. 13:56:49 Post procedure rhythm: unchanged. 13:56:51 Estimated blood loss: 10 ml 13:56:54 Post procedure instruction explained to patient.Patient verbalizes understanding. 13:56:54 Patient needs reinforcement of post procedure teaching. 13:57:04 Procedure and supply charges have been captured, reviewed, submitted and are correct. 13:57:08 Procedure Complication : No complications 13:57:35 Vital chart was stopped 13:57:35 See physician's report for complete and final results. 13:58:30 Report given to Pre/Post Procedure Room. 13:58:36 Patient transfered to Pre/Post Procedure Room with Stretcher. 13:58:38 Procedure ended. 13:58:38 Full Disclosure recording stopped 14:01:45 End room use (Document Last) Device Usage Item Name Manufacture Quantity Catalog Number Hospital Part Current M inimal Lot# / Charge Number Stock Stock Serial# Code Tegaderm 4 x 4 3M 1 1626W [id number] 942332 [id number] 5 (1626W) ACIST Manifold Acist 1 30593 350695 628548 678860 5 (70528) Medical Systems Inc ACIST Hand Acist 1 92175 384710 997565 270457 5 Control (49459) [employer] Inc ACIST Syringe Acist 1 20119 792774 956424 993950 2 0 (10881) Medical Systems Inc Bag Decanter Microtek 1 2001S 617411 18930 966443 5 (2001S) Medical Inc. Medline Cath Cardinal 1 [id number] 341515 59486 332217 5 Pack Health ([id number]) DIAGNOSTIC WIRE [facility] V[facility] 1 799313 069525 824716 584846 3 0 .035 260cm J wire (096400) DIAGNOSTIC Cardinal 1 VV7393 152845 13093 499036 3 0 Multipack 5Fr Health catheter set (BV3801) PERCUTANEOUS Cook Medical 1 X82189 369007 059574 5 ENTRY 19GA needle SHEATH Prelude Merit 1 MFI-0I-10-035 576377 509109 823273 5 5Fr 0.035 Medical (NJP-4H-48-035) MULTIPACK JL Cardinal 1 [id number] 5 4.0 5Fr Health catheter MULTIPACK 3DRC Cardinal 1 928988 5 5Fr catheter Health MULTIPACK Cardinal 1 075878 5 Pigtail 5 Fr Health catheter EXOSEAL 5Fr Cardinal 1 EX500 158703 994916 048168 1 0 (EX500) Health ROADRUNNER .035 Cook Medical 1 F66370 103610 521388 727037 5 260 glide wire ([id number]) DIAGNOSTIC AL 1 Cardinal 1 [id number] 864807 953048 679990 1 5 5Fr catheter Health (985095Y) Signature Audit Johnson Stage Time Signature Unsigned Intra-Procedure 08/24/2017 Floyd Guzmán 2:02:17 PM RT(R) Signatures Monitor : Floyd Guzmán RT Signature : Date : Time : [place] [address] [place] [address]
--- NOTE | ~2017-08-24 | OP ---
PATIENT NAME: TAO JONES MEDICAL RECORD: [id number] :55 LOCATION:D.CAT ADMISSION DATE: SURGEON: LATOSHA HELLER MD DATE OF OPERATION: 08/24/2017 PROCEDURE: Left heart catheterization, selective coronary angiography, plus aortofemoral runoff, right femoral artery approach. CATHETERS: A 5-Prydeinig sheath, 5-4 left and right Susan, 5-4 pig. The procedure was well tolerated. The patient returned to marie, sheath removed. ExoSeal device placed. FINDINGS: Left ventriculography in 30-degree BASHIR view: Normal wall motion, normal systolic function. CORONARY ANATOMY: LEFT MAIN: Left main is free of disease. LAD: LAD is free of disease in diagonal system. CIRCUMFLEX: Free of disease in the marginal system. RIGHT CORONARY ARTERY: Left dominant system with a rudimentary right and is free of disease. DESCRIPTION OF PROCEDURE: The catheter was pulled down to the level of the renal arteries and abdominal aorta. Aortography was performed. This showed minimal wall disease, no evidence of dissection, no evidence of aneurysm. The catheter was then pulled to the level of bifurcation. Findings are as follows: RIGHT: Right iliac system: Right common, internal and external system is free of disease. Right femoral system: Right common, deep, superficial femoral free of disease with good 3-vessel runoff. LEFT: Left iliac system: Left common, internal and external are smooth walled, free of disease. Left femoral system: Including common, deep, superficial free of disease with good 3-vessel runoff. IMPRESSION: Normal systolic function, normal coronary anatomy. No evidence of peripheral arterial disease. The sheath was closed with ExoSeal device. TRANSINT:[id number] Voice Confirmation ID: [id number] DOCUMENT ID: [id number] LATOSHA HELLER MD at 1214 CC: [id number] DICTATION DATE: 08/24/17 1401 TRUCK DRIVER HEAVY: 08/24/[address] [facility] CLI 08/24/17 [place] [id number] [place] [id number]
[~2017-08-24 10:44] MED LIST changes: -EXCEDRIN EXTRA1 TAB PO
[2017-08-24] MEDS ORDERED: EXCEDRIN EXTRA1 TAB PO (11:00)
[2017-08-24 11:17] VITALS: BP 129/89; Ht 160 cm; Wt 60.5 kg
[2017-08-24 12:00] LABS: ANION GAP 15.1 mmol/L (8-16); CALCIUM 9.4 mg/dL (8.5-10.1); CARBON DIOXIDE 25.2 mmol/L (21.0-32.0); CREATININE - SERUM 1.1 mg/dL (0.6-1.3); POTASSIUM - SERUM 3.3 mmol/L (3.5-5.1)
[2017-08-24 12:25] LABS: BASOPHILS 0.6 % (0-2); EOSINOPHILS 1.1 % (0-7); HEMATOCRIT 34.7 % (36.0-48.0); HEMOGLOBIN 11.6 g/dL (12-16); IMMATURE GRANULOCYTES 0.3 % (0-5); MCH 28.5 pg (26.0-34.0); MCHC 33.4 g/dL (31.0-37.0); MCV 85.3 fL (80.0-100.0); MEAN PLATELET VOLUME 9.7 fL (7.4-10.4); MONOCYTES 6.4 % (2-11); NEUTROPHILS 68.6 % (40-80); RBC 4.07 10x6/uL (4.00-5.40); RDW 14.2 % (11.5-14.5); WBC 6.3 10x3/uL (4.8-10.8)
[2017-08-24 12:28] LABS: PLATELET COUNT 226 10x3/uL (130-400)
== END 2017-08-24 16:05 | disposition home or self-care (01) ==
LOC: D.CATH 10:44
PROVIDERS: Internal Medicine Interventional Cardiology
DX: I25.119 Atherosclerotic heart disease of native coronary artery with unspecified angina pectoris (principal); Z01.812 Encounter for preprocedural laboratory examination; I70.219 Atherosclerosis of native arteries of extremities with intermittent claudication, unspecified extremity; F17.210 Nicotine dependence, cigarettes, uncomplicated

== ENCOUNTER → 2017-09-30 19:10 | Outpatient (CLI) | payer MEDICARE ==
[2017-08-24 11:17] VITALS: BMI 23.6
[~2017-09-30 19:10] MED LIST changes: +EXCEDRIN EXTRA1 TAB PO; +VIBRAMYCIN 100100 MG PO
== END | disposition home or self-care (01) ==
LOC: D.LABREF 19:10
DX: L02.211 Cutaneous abscess of abdominal wall (principal)

== ENCOUNTER 2017-10-06 07:30 | Day surgery (SDC) | payer MEDICARE ==
[2017-10-05 13:46] LABS: INR 0.99 (0.85-1.17); PROTIME 12.7 SECONDS (11.6-15.0)
[2017-10-05 13:56] LABS: ANION GAP 17.3 mmol/L (8-16); CALCIUM 9.1 mg/dL (8.5-10.1); CARBON DIOXIDE 23.9 mmol/L (21.0-32.0); CREATININE - SERUM 1.3 mg/dL (0.6-1.3); POTASSIUM - SERUM 4.2 mmol/L (3.5-5.1)
[~2017-10-06] VITALS: Ht 160 cm; Wt 59.9 kg
--- NOTE | ~2017-10-06 | OP ---
PATIENT NAME: TAO JONES MEDICAL RECORD: [id number] :55 LOCATION:D.OPS ADMISSION DATE: SURGEON: RD SONG MD DATE OF OPERATION: 10/06/2017 PREOPERATIVE DIAGNOSES: 1. Recurrent abdominal abscess. 2. Lower abdominal painful scar. 3. MRSA. 4. Tobacco dependence syndrome. POSTOPERATIVE DIAGNOSES: 1. Recurrent abdominal abscess. 2. Lower abdominal painful scar. 3. MRSA. 4. Tobacco dependence syndrome. PROCEDURES: 1. Abdominal scar revision with complex closure. 2. Incision and drainage of abdominal abscess. SURGEON: Rd Song MD REPORT OF PROCEDURE: The patient's abdomen was prepped and draped in sterile fashion. On the inferior aspect of the midline of the abdomen, there was an old scar present with a small area of fluctuance just to the left of midline. The scar was removed with an ovoid incision. The underlying scar tissue was firm, but there was no sign of any purulence. We removed the scar tissue down to the fascia. As we extended to the left side, there was a small area of purulence which was encountered. Once we poked through this, there was a large open pocket. The pocket did not have diffuse amount of purulence present, but the wound itself was about 3 cm in greatest diameter. The inferior aspect of this had a fibrinous capsule present. This capsule was removed, and upon doing this, there was noted to be some braided suture present in the midline along with a Prolene suture. These sutures were all removed. At this point, we excised all the tissue until we got down to normal-appearing fatty tissue. We undermined the tissue in both directions to help facilitate closure. We then irrigated out the wound multiple times with peroxide and saline solution and any bleeding that was found was treated with electrocautery. Once the wound was felt to be dry, a 15-Sinhala Bud drain was inserted in the right lower quadrant and placed in a circular fashion throughout the base of the wound. This was sutured into place with 2-0 nylon. The skin incision was then closed in the midline using vertical mattress 2-0 nylons. The wound was then dressed appropriately. COMPLICATIONS: None. CONDITION: Stable. ANESTHESIA: General endotracheal. BLOOD LOSS: 30 mL. TRANSINT:[id number] Voice Confirmation ID: [id number] DOCUMENT ID: [id number] OPERATIVE REPORT [id number] TAO JONES CHRISTIAN MD at 1228 CC: SKYLAR ALVAREZ DO [id number] DICTATION DATE: 10/06/17 1136 RUBBER CUTTING MACHINE TENDER: 10/06/17 1149 [facility] [address] [place] [id number]
[2017-10-06 07:24] LABS: BASOPHILS 1.1 % (0-2); EOSINOPHILS 1.4 % (0-7); HEMATOCRIT 37.6 % (36.0-48.0); HEMOGLOBIN 12.1 g/dL (12-16); IMMATURE GRANULOCYTES 0.3 % (0-5); LYMPHOCYTES 23.3 % (15-50); MCH 27.9 pg (26.0-34.0); MCHC 32.2 g/dL (31.0-37.0); MCV 86.8 fL (80.0-100.0); MEAN PLATELET VOLUME 10.6 fL (7.4-10.4); MONOCYTES 7.7 % (2-11); NEUTROPHILS 66.2 % (40-80); RBC 4.33 10x6/uL (4.00-5.40); RDW 14.7 % (11.5-14.5); WBC 9.3 10x3/uL (4.8-10.8)
[2017-10-06 07:35] LABS: PLATELET COUNT 309 10x3/uL (130-400)
[2017-10-06 08:40] VITALS: BP 119/67; Ht 160 cm; Wt 59.9 kg
[2017-10-06] MEDS ORDERED: DILAUDID2 MG PO (11:29)
[2017-10-06] MEDS ORDERED: VIBRAMYCIN 100100 MG PO (11:30)
== END 2017-10-06 14:20 | disposition home or self-care (01) ==
LOC: D.OPS 07:30 → D.PAN 09:45 → D.OPS 09:45
PROVIDERS: Anesthesiology; Surgery
DX: L02.211 Cutaneous abscess of abdominal wall (principal); M19.90 Unspecified osteoarthritis, unspecified site; K21.9 Gastro-esophageal reflux disease without esophagitis; K94.13 Enterostomy malfunction; F17.200 Nicotine dependence, unspecified, uncomplicated; A49.02 Methicillin resistant Staphylococcus aureus infection, unspecified site; L90.5 Scar conditions and fibrosis of skin; Z01.812 Encounter for preprocedural laboratory examination

== ENCOUNTER → 2018-03-17 18:51 | Outpatient (CLI) | payer MEDICARE ==
[2017-10-06 08:40] VITALS: BMI 23.4
== END | disposition home or self-care (01) ==
LOC: D.LABREF 18:51
DX: L02.211 Cutaneous abscess of abdominal wall (principal)

== ENCOUNTER → 2018-06-08 07:31 | Outpatient (CLI) | payer MEDICARE ==
[2017-10-06 08:40] VITALS: BMI 23.4
== END | disposition home or self-care (01) ==
LOC: D.CT 07:31
DX: I71.4 Abdominal aortic aneurysm, without rupture (principal)

== ENCOUNTER 2018-06-29 15:31 | Observation (INO) | payer MEDICARE ==
[~2018-06-29] VITALS: Ht 160 cm; Wt 62.6 kg
[2018-06-29 15:46] VITALS: BP 124/68
[2018-06-29 16:21] LABS: BASOPHILS 1.1 % (0-2); EOSINOPHILS 1.6 % (0-7); HEMATOCRIT 30.9 % (36.0-48.0); HEMOGLOBIN 9.8 g/dL (12-16); IMMATURE GRANULOCYTES 0.2 % (0-5); LYMPHOCYTES 22.4 % (15-50); MCH 23.7 pg (26.0-34.0); MCHC 31.7 g/dL (31.0-37.0); MCV 74.6 fL (80.0-100.0); MEAN PLATELET VOLUME 8.6 fL (7.4-10.4); MONOCYTES 7.7 % (2-11); RBC 4.14 10x6/uL (4.00-5.40); RDW 18.5 % (11.5-14.5); WBC 6.2 10x3/uL (4.8-10.8)
[2018-06-29 16:29] LABS: PLATELET COUNT 246 10x3/uL (130-400)
[2018-06-29 16:59] LABS: APTT 24.9 SECONDS (22.8-39.4); INR 0.97 (0.85-1.17); PROTIME 12.4 SECONDS (11.6-15.0)
[2018-06-29 17:05] LABS: ALKALINE PHOSPHATASE 104 U/L (46-116); ALT (SGPT) 14 U/L (10-68); BILIRUBIN - TOTAL 0.14 mg/dL (0.2-1.3); CALC OSMOLALITY 281 mosm/kg (275-300); CALCIUM 8.1 mg/dL (8.5-10.1); CARBON DIOXIDE 27.9 mmol/L (21.0-32.0); CHLORIDE - SERUM 103 mmol/L (98-107); CREATININE - SERUM 1.1 mg/dL (0.6-1.3); GLUCOSE 93 mg/dL (74-106); PROTEIN - SERUM 6.9 g/dL (6.4-8.2); SODIUM 141 mmol/L (136-145); UREA NITROGEN 16 mg/dL (7-18); eGFR NON AFRICAN AMERICAN 53 mL/min (90-120)
[2018-06-29 17:30] LABS: AMYLASE - SERUM 54 U/L (25-115); CKMB 0.7 U/L (0.0-3.6); CREATINE KINASE 41 UL (21-215); LIPASE 390 U/L (73-393); TROPONIN-I < 0.017 ng/mL (0.000-0.060)
--- NOTE | 2018-06-29 23:34 | NUR ---
INTRODUCED SELF TO PATIENT, PATIENT C/O HEADACHE. ASSISTED PATIENT INTO GOWN, BED IN LOWEST POSITION, CALL LIGHT IN REACH. WILL CONTACT DR FOR HEADACHE PAIN.
[2018-06-29 23:47] VITALS: BP 124/63; BMI 31.9
[2018-06-29 23:55] VITALS: BP 124/63
--- NOTE | 2018-06-30 01:05 | NUR ---
PATIENT REQUESTED BLANKET AND COFFEE, EDUCATED PATIENT THAT WITH HER H/H BEING LOW AND A GI BLEED I WOULD PREFER NOT TO GIVE HER A BOWEL STIMULANT. PATIENT UNDERSTOOD, HELPED PATIENT EMPTY OSTOMY. BED IN LOWEST POSITION, CALL LIGHT IN REACH.
[2018-06-30 03:55] VITALS: BP 122/60
--- NOTE | 2018-06-30 04:28 | NUR ---
HELPED PATIENT TO RESTROOM, BED IN LOWEST POSITION, CALL LIGHT IN REACH.
[2018-06-30 06:50] LABS: BASOPHILS 0.6 % (0-2); EOSINOPHILS 0.7 % (0-7); HEMATOCRIT 33.3 % (36.0-48.0); HEMOGLOBIN 10.5 g/dL (12-16); IMMATURE GRANULOCYTES 0.3 % (0-5); LYMPHOCYTES 11.8 % (15-50); MCH 23.6 pg (26.0-34.0); MCHC 31.5 g/dL (31.0-37.0); MEAN PLATELET VOLUME 8.9 fL (7.4-10.4); MONOCYTES 4.5 % (2-11); NEUTROPHILS 82.1 % (40-80); PLATELET COUNT 246 10x3/uL (130-400); RBC 4.44 10x6/uL (4.00-5.40); RDW 18.7 % (11.5-14.5); WBC 7.3 10x3/uL (4.8-10.8)
[2018-06-30 07:19] LABS: CALC OSMOLALITY 277 mosm/kg (275-300); CALCIUM 8.4 mg/dL (8.5-10.1); CARBON DIOXIDE 26.6 mmol/L (21.0-32.0); CHLORIDE - SERUM 101 mmol/L (98-107); GLUCOSE 104 mg/dL (74-106); POTASSIUM - SERUM 3.5 mmol/L (3.5-5.1); SODIUM 138 mmol/L (136-145); TROPONIN-I < 0.017 ng/mL (0.000-0.060); UREA NITROGEN 17 mg/dL (7-18); eGFR NON AFRICAN AMERICAN 59 mL/min (90-120)
[2018-06-30 07:20] LABS: MAGNESIUM - SERUM 2.1 mg/dL (1.8-2.4)
[2018-06-30 08:07] LABS: ALBUMIN 3.3 g/dL (3.4-5.0); ALKALINE PHOSPHATASE 102 U/L (46-116); ALT (SGPT) 15 U/L (10-68); AMYLASE - SERUM 55 U/L (25-115); LIPASE 315 U/L (73-393); PROTEIN - SERUM 7.2 g/dL (6.4-8.2)
[2018-06-30 10:23] VITALS: BP 135/62
[2018-06-30 12:24] LABS: % SATURATION 3 % (15-55); IRON 16 ug/dl (35-150); TOTAL IRON BIND CAPACITY 488 ug/dl (260-445)
[2018-06-30 12:25] LABS: UNSAT IRON BIND CAPACITY 472 ug/dl (150-375)
[2018-06-30 14:08] VITALS: Ht 160 cm; Wt 62.6 kg
[2018-06-30 14:36] VITALS: BP 142/54
[2018-06-30 16:59] VITALS: BP 131/65
--- NOTE | 2018-06-30 19:20 | NUR ---
AWAKE AND ALERT WITH NO DISTRESS AT THIS TIME SKIN WARM AND DRY DENIES ANY ABD PAIN INSTRUCTED PT TO NEED FOR URINE SAMPLE. BED IS LOW AND CALL LIGHT IS IN REACH.
--- NOTE | 2018-06-30 19:55 | NUR ---
CO PAIN AT LEFT ARM IV SITE ZOFRAN AT 4.7 IS RUNNING ... FLUSHED IV WITH NO APPEARENT PAIN NO INFILTRATION NOTED. PT AGREED IV CAN STAY FOR NOW AND SHE WILL REPORT ANUY FUTURE DISCOMFORT
[2018-06-30 20:32] VITALS: BP 139/75
--- NOTE | 2018-06-30 21:07 | NUR ---
PT SCRATCHING AND CO REACTION TO MEDS LUNGS AREE CLEAR NO DISTRESSNSKIN ABSEMT OF READNESS OR RASH EXCEPT FOR CLAW ALBERT
[2018-06-30 21:08] LABS: APPEARANCE CLEAR (CLEAR); COLOR YELLOW (YELLOW); SPECIFIC GRAVITY 1.015 (1.005-1.020)
[2018-06-30 21:09] LABS: BILIRUBIN NEGATIVE (NEGATIVE); GLUCOSE NEGATIVE (NEGATIVE); KETONE NEGATIVE (NEGATIVE); NITRITE NEGATIVE (NEGATIVE); PROTEIN NEGATIVE (NEGATIVE); UROBILINOGEN NORMAL (NORMAL)
--- NOTE | 2018-06-30 21:54 | NUR ---
CONTINUES TO ITCH SOME BUT SKIN REMAINS FREE OF RASH AND LUNGS REMAINS CLEAR NO NOTED DISTRESS
--- NOTE | 2018-06-30 22:24 | NUR ---
CONTINUES TO COMPLAINT OF ITCHING PT IS VIOLENTLY SCRATCHING AT BACK AND FACE BUT NO PHYSICAL RASH SEEN LUNGS ARE CLER SPO2 98%
[2018-07-01 00:04] VITALS: BP 146/71
--- NOTE | 2018-07-01 01:55 | NUR ---
PT AWAKE AND COMPLAINT OF ITCHING CONTINUES. ZOFRAN DRIP HALTED FOR NOW.
--- NOTE | 2018-07-01 02:17 | NUR ---
CAME INTO HALLWAY UPSET. "YOU WERE SUPOSE TO BE TOLD THIS IV IS HURTING" I RETURNED TO ROOM WITH PATIENT AND DCED IV FROM LEFT ARM CATH INTACT. ZOFRAN GTT REMAINS OFF
--- NOTE | 2018-07-01 04:19 | NUR ---
PT CLAIMS THE ITCHING HAS COMPLETELY SUBSIDED WITH THE DC OF ZOFRAN
--- NOTE | 2018-07-01 05:26 | NUR ---
WITTNESS TO PT REFUSING BLOOD DRAW.."YOU ARE NOT GETTING ANYMORE OF MY BLOOD"
[2018-07-01 06:13] VITALS: BP 129/75
[2018-07-01 06:18] LABS: BASOPHILS 1.1 % (0-2); EOSINOPHILS 2.1 % (0-7); HEMATOCRIT 29.4 % (36.0-48.0); HEMOGLOBIN 9.2 g/dL (12-16); IMMATURE GRANULOCYTES 0.2 % (0-5); LYMPHOCYTES 24.6 % (15-50); MCH 23.3 pg (26.0-34.0); MCHC 31.3 g/dL (31.0-37.0); MCV 74.4 fL (80.0-100.0); MEAN PLATELET VOLUME 8.7 fL (7.4-10.4); PLATELET COUNT 215 10x3/uL (130-400); RBC 3.95 10x6/uL (4.00-5.40); RDW 18.3 % (11.5-14.5)
[2018-07-01 06:29] LABS: WBC 4.8 10x3/uL (4.8-10.8)
[2018-07-01 06:35] LABS: ANION GAP 11.2 mmol/L (8-16); CALCIUM 8.7 mg/dL (8.5-10.1); CARBON DIOXIDE 28.8 mmol/L (21.0-32.0); CREATININE - SERUM 0.9 mg/dL (0.6-1.3)
--- NOTE | 2018-07-01 06:49 | NUR ---
POTASSIUM IS 3.0 REFUSING POTASSIUM AT THIS TIME
--- NOTE | 2018-07-01 07:30 | NUR ---
RECEIVED A/A/OX4. REMAINS NPO FOR EGD THIS AM AND VERBALIZES UNDERSTANDING. NO REQUESTS AT THIS TIME. ASSESSMENT COMPLETED. BED IN LOWEST POSITION WITH WHEELS LOCKED. SIDERAILS UP X 2 WITH CALL LIGHT IN REACH. PT IS UP AD DANIS IN ROOM AND HALLWAYS WITH NO APPARENT PROBLEMS. WILL CONTINUE POC.
[2018-07-01 07:53] VITALS: BP 143/66
--- NOTE | 2018-07-01 08:45 | NUR ---
RETURNED TO ROOM FOR EGD AND IS A/A/OX4. REQUESTING COFFEE AND GIVEN. TOLERATED WELL. SWALLOWING NORMAL.
[2018-07-01] MEDS ORDERED: CARAFATE1 G PO (10:08)
[2018-07-01] MEDS ORDERED: PEPCID40 MG PO (10:08)
[2018-07-01 10:22] LABS: FOLATE (FOLIC ACID) - SERUM >20.0 ng/mL (>3.0)
[2018-07-01 11:18] VITALS: BP 142/76
--- NOTE | 2018-07-01 11:45 | NUR ---
DISCHARGE INSTRUCTIONS REVIEWED WITH PT AND VERBALIZED UNDERSTANDING WITH NO QUESTIONS. SL REMOVED WITH TIP INTACT. LEFT FLOOR VIA W/C WITH ALL PERSONAL BELONGINGS AND LEFT FACILITY VIA PRIVATE VEHICLE WITH HER BROTHER.
--- NOTE | 2018-07-01 12:51 | NUR ---
AGREE WITH WORLD HISTORY TEACHER ASSESSMENT
--- NOTE | 2018-07-02 08:18 | MORECARE ---
CASE MANAGEMENT DISCHARGE SUMMARY PATIENT: TAO JONES UNIT: [id number] ADM DATE: 06/29/18 AGE: 63 : 55 SEX: F ROOM/BED: D.2138 AUTHOR: LIO RODRIGUES PHYSICIAN: REFERRING PHYSICIAN: SURESH LAKE MD DATE OF SERVICE: 07/02/18 Discharge Plan Patient Name: TAO JONES Facility: [facility]:[place] : 1955 Planned Disposition: Home Anticipated Discharge Date: 07/01/18 Discharge Date: 07/01/2018 Expected LOS: 2 Initial Reviewer: [email or web address] Initial Review Date: 07/02/2018 Generated: 07/02/18 9:18 am Patient Name: TAO JONES Page [id number] at 0818 All edits/amendments must be made on the electronic document DICTATION DATE: 07/02/18817 SYSTEMS SUPPORT ENGINEER: BOBBY 07/02/18817 RPT#: [id number] DC DATE:07/01/18 STATUS: DIS IN [facility] [address] [place] [address] END OF REPORT
--- NOTE | 2018-07-02 14:57 | EC ---
PATIENT:TAO JONES DATE OF SERVICE: 06/29/18 SEX: F MEDICAL RECORD: [id number] DATE OF : 55 LOCATION:D.M2 D.213 AGE OF PATIENT: 63 ADMISSION DATE: 06/29/18 REFERRING PHYSICIAN: INTERPRETING PHYSICIAN: REX REAL MD ECHOCARDIOGRAM REPORT ECHO CHARGES 4 ECHO COMPLETE Date: 06/30/18 CLINICAL DIAGNOSIS: CHEST PAIN ECHOCARDIOGRAPHIC MEASUREMENTS (adult normal given) AC root (d.<3.7cm) 2.8 cm LV Septum d (<1.2 cm> 1.6 cm Valve Excursion 1.3 cm LV Septum (systole) 1.8 cm Left Atria (s.<4.0cm> 3.9 cm LVPW d(<1.2cm) 1.4 cm RV (d.<2.3cm) 3.2 cm LVPW (sytole) 1.6 cm LV diastole(<5.6CM) 4.6 cm MV E-F(>70mm/sec) cm LV systole 2.9 cm LVOT Diameter 1.6 cm MV exc.(>10mm) 1.2 cm Est.ejection fraction (50-75%) % DOPPLER: LVIT cm/sec A 131 cm/sec E 100 cm/sec LA cm/sec RVSP 15 mmHg LVOT 117 cm/sec AOP1/2T m/s Asc. Ao 195 cm/sec RVOT 103 cm/sec RA cm/sec PA 182 cm/sec AV Gradient Peak 15.18mmHg AV Mean 8.17 mmHg AV Area 1.5 cm MV Gradient Peak 6.19 mmHg MV Mean 2.67 mmHg MV Area cm COMMENTS: Apron Cleaner: Humaira HUMPHREYS Trimming Caser: Meka Real TAPE# PACS Pericardial Effusion N DATE OF SERVICE: 07/01/2018 FINDINGS: 1. Left ventricular chamber size is within normal limits. Left ventricular systolic function is normal. Overall ejection fraction estimated at 60%. 2. Left atrium, right atrium, and right ventricular chamber sizes are within normal limits. 3. Valvular structures have normal structure and motion. 4. Doppler interrogation reveals mild aortic insufficiency, mild mitral regurgitation, no other valvular insufficiency or stenosis. ECHOCARDIOGRAM REPORT [id number] TAO JONES 5. No evidence of pericardial effusion or left ventricular thrombus. Pulmonary systolic pressure is normal, estimated at 15 mmHg. TRANSINT:[id number] Voice Confirmation ID: [id number] DOCUMENT ID: [id number] REX REAL MD at 1457 CC: [id number] DICTATION DATE: 07/01/18 1520 REPLENISHMENT ANALYST: 07/01/18 2252 DIS IN 07/01/18 [facility] [address] [facility]
--- NOTE | 2018-07-02 14:57 | CN ---
PATIENT NAME:TAO PALACIOS MEDICAL RECORD: [id number] : 55 LOCATION:D. D.2138 ADMIT DATE: 06/29/18 ACCOUNT: [id number] CONSULTING PHYSICIAN: REX HOLMAN MD REFERRING PHYSICIAN: SURESH LAKE MD DATE OF CONSULTATION: 06/30/2018 ADMITTING DIAGNOSES: 1. Chest pain. 2. Abdominal pain. 3. Gastrointestinal bleed. 4. Peripheral vascular disease. 5. Hyperlipidemia. 6. Past smoking history. HISTORY OF PRESENT ILLNESS: Mrs. Palacios presents with epigastric pain radiating to her chest. She had an episode of coffee-ground emesis. She is found to be anemic and guaiac positive stools and is undergoing GI workup. PHYSICAL EXAMINATION: GENERAL APPEARANCE: Well-nourished, well-developed, appears stated age. Level of distress, comfortable. PSYCHIATRIC: Mental status, alert, normal affect. Orientation, oriented to time, place and person. EYES: Lids and conjunctiva, noninjected. No discharge, no pallor. ENT: Lips, teeth, gums, normal dentition. Oropharynx, no cyanosis, no pallor. NECK: Carotid arteries, bilateral normal upstroke, no bruits, no thrills. JUGULAR VEINS: No jugular venous pressure or distention. CERVICAL LYMPH NODES: Nontender, nonenlarged. THYROID: Not enlarged. Nontender. No nodules. LUNGS: Respiratory effort, unlabored. CHEST: Normal curvature. No thoracic deformity. No chest wall tenderness. Percussion, resonant. Auscultation, clear. No wheezes, no rales, no rhonchi. CARDIOVASCULAR: Precordial exam, nondisplaced. No heaves or pericardial thrills. Rate and rhythm, regular. Heart sounds, normal S1, normal S2. No S3, no gallop, no rub. Systolic murmur, not heard. Diastolic murmur, not heard. EXTREMITIES: No cyanosis, no edema. Peripheral pulses, full and equal in all extremities, except as noted. No bruits appreciated. ABDOMEN: Soft, nondistended. Normal aorta. No bruit. Nontender. No masses. Liver, nontender, no hepatomegaly. Spleen, nontender, no splenomegaly. MUSCULOSKELETAL: No joint tenderness. No joint swelling. No erythema. NEUROLOGICAL: Normal gait, normal strength, normal tone. SKIN: Warm and dry. Troponin is normal. EKG is normal. OVERALL IMPRESSION: Chest discomfort is secondary to gastrointestinal issues. No other cardiac workup treatment is necessary. TRANSINT:[id number] Voice Confirmation ID: [id number] DOCUMENT ID: [id number] CONSULT REPORT [id number] TAO PALACIOS JEFFREY MD at 1457 CC: [id number] DICTATION DATE: 06/30/18927 HELPER ELECTRICAL: 06/30/18 1049 DIS IN 07/01/18 [place] [id number] [place] [address]
== END 2018-07-01 13:43 | disposition home or self-care (01) ==
LOC: D.ER 15:31 → D.EDHOLD 20:34 → OBSVTIME 20:35 → D.M2 20:55
PROVIDERS: Family Medicine; ADMIT Internal Medicine Nephrology; ATTEND Internal Medicine Nephrology
DX: K92.2 Gastrointestinal hemorrhage, unspecified (principal); R07.9 Chest pain, unspecified; I73.9 Peripheral vascular disease, unspecified; E78.5 Hyperlipidemia, unspecified; K22.10 Ulcer of esophagus without bleeding; K44.9 Diaphragmatic hernia without obstruction or gangrene; K29.00 Acute gastritis without bleeding; K31.819 Angiodysplasia of stomach and duodenum without bleeding; K29.80 Duodenitis without bleeding; F17.213 Nicotine dependence, cigarettes, with withdrawal; R91.1 Solitary pulmonary nodule; I71.4 Abdominal aortic aneurysm, without rupture; E83.42 Hypomagnesemia; F31.9 Bipolar disorder, unspecified; D50.9 Iron deficiency anemia, unspecified; K21.0 Gastro-esophageal reflux disease with esophagitis

== ENCOUNTER → 2018-09-27 08:18 | Outpatient (CLI) | payer MEDICARE ==
[2018-06-30 14:08] VITALS: BMI 28.3
[~2018-09-27 08:18] MED LIST changes: +CARAFATE1 G PO; +PEPCID40 MG PO
--- NOTE | 2018-09-30 10:26 | EC ---
PATIENT:TAO JONES DATE OF SERVICE: 09/27/18 SEX: F MEDICAL RECORD: [id number] DATE OF : 55 LOCATION:D.[facility] AGE OF PATIENT: 63 ADMISSION DATE: 09/27/18 REFERRING PHYSICIAN: INTERPRETING PHYSICIAN: LATOSHA HELLER MD ECHOCARDIOGRAM REPORT ECHO CHARGES 4 ECHO COMPLETE Date: 09/27/18 CLINICAL DIAGNOSIS: CP ECHOCARDIOGRAPHIC MEASUREMENTS (adult normal given) AC root (d.<3.7cm) 2.5 cm LV Septum d (<1.2 cm> 0.8 cm Valve Excursion 1.2 cm LV Septum (systole) 1.5 cm Left Atria (s.<4.0cm> 2.9 cm LVPW d(<1.2cm) 1.1 cm RV (d.<2.3cm) 2.4 cm LVPW (sytole) 1.8 cm LV diastole(<5.6CM) 4.8 cm MV E-F(>70mm/sec) cm LV systole 3.1 cm LVOT Diameter 1.8 cm MV exc.(>10mm) cm Est.ejection fraction (50-75%) % DOPPLER: LVIT cm/sec A 90.0 cm/sec E 70.0 cm/sec LA cm/sec RVSP 22.0 mmHg LVOT 85.0 cm/sec AOP1/2T m/s Asc. Ao 180 cm/sec RVOT 67.0 cm/sec RA cm/sec PA 92.0 cm/sec AV Gradient Peak 13.0 mmHg AV Mean 7.1 mmHg AV Area 1.1 cm MV Gradient Peak 5.0 mmHg MV Mean 1.6 mmHg MV Area cm COMMENTS: OP - HC Director Online Marketing: 1 RACHEL WILLIAMSONOE Business Education Teacher: 3 Dr. Jefferson TAPE# PACS Pericardial Effusion N DATE OF SERVICE: Adequate 2D, color flow, spectral Doppler, and M-Mode. No LVH. LV internal dimension is normal. Wall motion is normal. EF is greater than or equal to 55%. Aortic valve is tricuspid. No evidence of stenosis by Doppler interrogation. Left atrium is normal. Mitral valve shows no prolapse. Trace MR. Right-sided chambers are grossly normal. Trace TR. TRANSINT:[id number] Voice Confirmation ID: [id number] DOCUMENT ID: [id number] ECHOCARDIOGRAM REPORT [id number] TAO JONES GREGORY A MD at 1026 CC: [id number] DICTATION DATE: 09/28/18 1435 TRANSFER OPERATOR: 09/28/18 1540 DEP CLI 09/27/18 [place] [id number] [place] [id number]
== END | disposition home or self-care (01) ==
LOC: D.HCCARDIO 08:18
PROVIDERS: ATTEND Internal Medicine Interventional Cardiology
DX: R07.9 Chest pain, unspecified (principal)

== ENCOUNTER → 2018-12-22 19:23 | Outpatient (CLI) | payer MEDICARE ==
[2018-06-30 14:08] VITALS: BMI 28.3
== END | disposition home or self-care (01) ==
LOC: D.LABREF 19:23
PROVIDERS: ATTEND Surgery
DX: L02.211 Cutaneous abscess of abdominal wall (principal)

== ENCOUNTER → 2019-01-06 08:49 | Outpatient (CLI) | payer MEDICARE ==
[2018-06-30 14:08] VITALS: BMI 28.3
== END | disposition home or self-care (01) ==
LOC: D.CT 08:49
PROVIDERS: ATTEND Internal Medicine Cardiovascular Disease
DX: R91.1 Solitary pulmonary nodule (principal)

== ENCOUNTER → 2019-04-05 08:29 | Outpatient (CLI) | payer MEDICARE ==
[2018-06-30 14:08] VITALS: BMI 28.3
== END | disposition home or self-care (01) ==
LOC: D.CT 08:29
PROVIDERS: ATTEND Family Medicine
DX: R51 Headache (principal)

== ENCOUNTER → 2019-04-29 07:56 | Outpatient (CLI) | payer MEDICARE ==
[2018-06-30 14:08] VITALS: BMI 28.3
--- NOTE | ~2019-04-29 | ST ---
PATIENT:TAO JONES MEDICAL RECORD: [id number] SEX: F LOCATION:[facility] ORDER #: ADMISSION DATE: 04/29/19 AGE OF PATIENT: 63 REFERRING PHYSICIAN: INTERPRETING PHYSICIAN: REX HOLMAN MD DATE OF SERVICE: 04/29/2019 PROCEDURE: Nuclear stress test. INDICATION: Angina, syncope, chronic obstructive pulmonary disease. TECHNIQUE: She was exercised on standard Lexiscan protocol with 33 mCi of sestamibi injected at peak stress, 11 mCi were used previously for rest images. FINDINGS: Gated SPECT reveals global hypokinesis throughout all segments. Mild dilatation, ejection fraction decreased at 37%. SPECT imaging; Cardiolite was used as myocardial perfusion agent. There is homogeneous uptake throughout all segments at rest and stress with no evidence of inducible ischemia or previous infarction. OVERALL IMPRESSION: Abnormal nuclear stress test only and it shows a nonischemic cardiomyopathy with ejection fraction of 37%. Center medical management and treatment of the cardiomyopathy. TRANSINT:[id number] Voice Confirmation ID: [id number] DOCUMENT ID: [id number] REX HOLMAN MD CC: SKYLAR ALVAREZ DO [id number] DICTATION DATE: 04/29/19 1438 COGNOS TM1 DEVELOPER: 04/30/19 0812 DEP CLI 04/29/19 [facility] [address] [place] [address]
== END | disposition home or self-care (01) ==
LOC: D.HCCARDIO 07:56
PROVIDERS: ATTEND Internal Medicine Interventional Cardiology
DX: I20.9 Angina pectoris, unspecified (principal)

== ENCOUNTER → 2019-11-10 08:29 | Outpatient (CLI) | payer MEDICARE ==
[2018-06-30 14:08] VITALS: BMI 28.3
== END | disposition home or self-care (01) ==
LOC: D.CT 08:29
PROVIDERS: ATTEND Family Medicine
DX: R91.8 Other nonspecific abnormal finding of lung field (principal); J18.8 Other pneumonia, unspecified organism

== ENCOUNTER 2019-11-30 11:20 | Day surgery (SDC) | payer MEDICARE ==
[~2019-11-30] VITALS: Ht 160 cm; Wt 63.2 kg
[2019-11-30 11:46] LABS: BASOPHILS 1.1 % (0-2); EOSINOPHILS 0.9 % (0-7); HEMATOCRIT 28.8 % (36.0-48.0); IMMATURE GRANULOCYTES 1.2 % (0-5); LYMPHOCYTES 15.2 % (15-50); MCH 22.8 pg (26.0-34.0); MCHC 31.3 g/dL (31.0-37.0); MCV 73.1 fL (80.0-100.0); MEAN PLATELET VOLUME 8.8 fL (7.4-10.4); MONOCYTES 4.8 % (2-11); NEUTROPHILS 76.8 % (40-80); RBC 3.94 10x6/uL (4.00-5.40); RDW 18.6 % (11.5-14.5); WBC 7.4 10x3/uL (4.8-10.8)
[2019-11-30 11:53] LABS: PLATELET COUNT 340 10x3/uL (130-400)
[2019-11-30 11:59] LABS: INR 0.98 (0.85-1.17)
[2019-11-30] MEDS ORDERED: SYMBICORT 80-10.2 GM INH (12:03)
[2019-11-30] MEDS ORDERED: DEXILANT30 MG PO (12:03)
[2019-11-30 12:12] VITALS: BP 119/83; Ht 160 cm; Wt 63.2 kg
--- NOTE | 2019-11-30 14:20 | NUR ---
3962 SEE POST PROCEDURE CHECKLIST FOR VITAL SIGN TRENDS. FAMILY AT BEDSIDE.
[2019-12-02 13:11] LABS: FUNGUS STAIN Final report (())
== END 2019-11-30 15:25 | disposition home or self-care (01) ==
LOC: D.OPS 11:20
PROVIDERS: ATTEND Internal Medicine Pulmonary Disease
DX: R91.8 Other nonspecific abnormal finding of lung field (principal)

== ENCOUNTER 2020-01-05 11:05 | Inpatient (IN) | payer MEDICARE ==
[~2020-01-05] VITALS: Ht 160 cm; Wt 59.0 kg
[~2020-01-05 11:05] MED LIST changes: +DEXILANT30 MG PO; +SYMBICORT 80-10.2 GM INH
[2020-01-05] MEDS ORDERED: VENTOLIN HFA [SP8 GM INH (11:13)
[2020-01-05] MEDS ORDERED: ZANAFLEX4 MG PO (11:13)
[2020-01-05] MEDS ORDERED: ZOFRAN4 MG PO (11:14)
[2020-01-05] MEDS ORDERED: SYMBICORT 80-10.2 GM INH (11:14)
[2020-01-05] MEDS ORDERED: DEXILANT60 MG PO (11:14)
[2020-01-05] MEDS ORDERED: VIBRAMYCIN 100100 MG PO (11:15)
[2020-01-05] MEDS ORDERED: ALDACTONE25 MG PO ×2 (11:15)
[2020-01-05] MEDS ORDERED: MECLIZINE HCL12.5 MG PO (11:15)
[2020-01-05 11:38] LABS: CALC OSMOLALITY 271 mosm/kg (275-300); CALCIUM 9.5 mg/dL (8.5-10.1); CARBON DIOXIDE 15.4 mmol/L (21.0-32.0); CHLORIDE - SERUM 92 mmol/L (98-107); CREATININE - SERUM 2.1 mg/dL (0.6-1.3); POTASSIUM - SERUM 4.9 mmol/L (3.5-5.1); SODIUM 125 mmol/L (136-145); UREA NITROGEN 63 mg/dL (7-18); eGFR NON AFRICAN AMERICAN 25 mL/min (90-120)
[2020-01-05 11:43] LABS: BASOPHILS 0.2 % (0-2); EOSINOPHILS 0.1 % (0-7); GLUCOSE 141 mg/dL (74-106); HEMATOCRIT 31.8 % (36.0-48.0); HEMOGLOBIN 9.9 g/dL (12-16); IMMATURE GRANULOCYTES 1.2 % (0-5); MCH 20.8 pg (26.0-34.0); MCHC 31.1 g/dL (31.0-37.0); MCV 66.9 fL (80.0-100.0); MEAN PLATELET VOLUME 8.3 fL (7.4-10.4); NEUTROPHILS 82.5 % (40-80); RBC 4.75 10x6/uL (4.00-5.40); WBC 15.3 10x3/uL (4.8-10.8)
[2020-01-05 11:44] LABS: PLATELET COUNT 462 10x3/uL (130-400)
[2020-01-05 11:55] LABS: ALBUMIN 3.1 g/dL (3.4-5.0); ALKALINE PHOSPHATASE 233 U/L (30-120); ALT (SGPT) 13 U/L (10-68); APTT 29.7 SECONDS (22.8-39.4); BILIRUBIN - TOTAL 0.38 mg/dL (0.2-1.3); CKMB 2.1 U/L (0.0-3.6); CREATINE KINASE 51 UL (21-215); INR 1.13 (0.85-1.17); PRO BNP 1126 pg/mL (0-125); PROTEIN - SERUM 8.1 g/dL (6.4-8.2); PROTIME 14.4 SECONDS (11.6-15.0)
[2020-01-05 11:56] LABS: TROPONIN-I < 0.017 ng/mL (0.000-0.060)
--- NOTE | 2020-01-05 12:32 | NUR ---
COVID SWAB OBTAINED AT THIS TIME.
[2020-01-05 12:41] LABS: D-DIMER-QUANTITATIVE 3.62 ug/mLFEU (0.20-0.54)
[2020-01-05 13:15] VITALS: BP 135/87
--- NOTE | 2020-01-05 13:24 | NUR ---
URINE SAMPLE OBTAINED AND SENT TO LAB
[2020-01-05 14:14] VITALS: BP 139/87
[2020-01-05 14:20] LABS: BILIRUBIN NEGATIVE (NEGATIVE); KETONE NEGATIVE (NEGATIVE); NITRITE NEGATIVE (NEGATIVE); UROBILINOGEN NORMAL mg/dL (< 2)
[2020-01-05 14:23] LABS: BACTERIA FEW /HPF (NONE SEEN); EPITHELIAL CELLS 0-5 /hpf (0-5); WHITE CELLS - URINE 0-5 HPF (0-4)
[2020-01-05 14:33] LABS: C-REACTIVE PROTEIN 16.9 mg/dL (0.0-0.9)
[2020-01-05 15:26] LABS: ERYTHROCYTE SEDIMENTATION RATE 55 mm/hr (0-30)
[2020-01-05 16:43] VITALS: BP 141/102
[2020-01-05 17:18] VITALS: BP 134/100
[2020-01-05] MEDS ORDERED: MORPHINE SULFAT15 M4 PO (21:05)
--- NOTE | 2020-01-05 23:00 | NUR ---
PT RECEIVED FROM THE ER. ASSISTED TO BATHROOM. ILEOSTOMY WITH BROWN WATERY STOOL. STOMA RED AND MOIST APPEARING. PT EMPTIED ILEOSTOMY. SHE C/O CHRONIC BACK PAIN FROM ARTHRITIS AND WANTS TO KNOW IF SHE CAN HAVE MORPHINE SINCE THAT IS WHAT SHE TAKES AT HOME. CALLED AND SPOKE TO TORI HARLEY APN. SEE MAR FOR PRN MORPHINE IV. INFORMED HIM THAT HER HEART RATE WAS 113 SINUS RHYTHM PER TELEMETRY. NO NEW ORDERS REGARDING THAT. BED IS LOW AND CALL LIGHT WITHIN REACH.
[2020-01-06] VITALS (8 sets, daily range): BP systolic 115–136; BP diastolic 61–69; Ht 160 cm; Wt 59.0 kg
[2020-01-06 09:39] LABS: BASOPHILS 0.5 % (0-2); EOSINOPHILS 0.9 % (0-7); IMMATURE GRANULOCYTES 1.1 % (0-5); LYMPHOCYTES 10.2 % (15-50); MCH 20.6 pg (26.0-34.0); MCHC 30.6 g/dL (31.0-37.0); MCV 67.4 fL (80.0-100.0); MEAN PLATELET VOLUME 8.6 fL (7.4-10.4); MONOCYTES 6.5 % (2-11); NEUTROPHILS 80.8 % (40-80); RDW 18.1 % (11.5-14.5)
[2020-01-06 09:42] LABS: RBC 3.59 10x6/uL (4.00-5.40); WBC 8.8 10x3/uL (4.8-10.8)
[2020-01-06 09:43] LABS: HEMATOCRIT 24.2 % (36.0-48.0); HEMOGLOBIN 7.4 g/dL (12-16); PLATELET COUNT 366 10x3/uL (130-400)
[2020-01-06 09:56] LABS: BILIRUBIN - TOTAL 0.17 mg/dL (0.2-1.3); CALCIUM 8.3 mg/dL (8.5-10.1); CARBON DIOXIDE 16.2 mmol/L (21.0-32.0)
[2020-01-06 09:58] LABS: ALBUMIN 2.2 g/dL (3.4-5.0); ANION GAP 16.4 mmol/L (8-16); CREATININE - SERUM 1.4 mg/dL (0.6-1.3); POTASSIUM - SERUM 3.6 mmol/L (3.5-5.1); PROTEIN - SERUM 5.9 g/dL (6.4-8.2)
[2020-01-06 12:05] LABS: HEMATOCRIT 23.6 % (36.0-48.0)
[2020-01-06 12:06] LABS: UDS - AMPHET NEGATIVE QUAL (NEGATIVE); UDS - BARB NEGATIVE QUAL (NEGATIVE); UDS - BENZO NEGATIVE QUAL (NEGATIVE); UDS - COCAINE NEGATIVE QUAL (NEGATIVE); UDS - OPIATE POSITIVE QUAL (NEGATIVE); UDS - PCP NEGATIVE QUAL (NEGATIVE); UDS - THC NEGATIVE QUAL (NEGATIVE)
[2020-01-06 12:12] LABS: HEMOGLOBIN 7.3 g/dL (12-16)
[2020-01-06 13:38] LABS: % SATURATION 8 % (15-55); IRON 23 ug/dl (35-150); TOTAL IRON BIND CAPACITY 265 ug/dl (260-445); UNSAT IRON BIND CAPACITY 242 ug/dl (150-375)
--- NOTE | 2020-01-06 20:00 | NUR ---
PATIENT RESTING IN BED WITH EYES CLOSED. NO S/S OF ACUTE DISTRESS. NO C/O AT THIS TIME. PATIENT IS ON 1.5L OF O2 NASAL CANNULA. PATIENT HAS A LEFT FOREARM IV, BLOOD @ 125 ML/HR. IV IS PATENT WITHOUT REDNESS, SWELLING, OR TENDERNESS. CALL LIGHT WITHIN REACH. WILL CONTINUE TO MONITOR.
[2020-01-06 20:14] LABS: BILIRUBIN NEGATIVE (NEGATIVE); KETONE NEGATIVE (NEGATIVE); NITRITE NEGATIVE (NEGATIVE); UROBILINOGEN NORMAL mg/dL (< 2)
--- NOTE | 2020-01-07 04:04 | NUR ---
I have reviewed this patient and I concur with the Shift Assessment completed by the Licensed Practical Nurse today this shift.
[2020-01-07 05:33] VITALS: BP 106/47
--- NOTE | 2020-01-07 05:43 | NUR ---
PATIENT IS NAUSEATED THIS MORNING. SRINI VALLE, WAS PAGED. CALL LIGHT WITHIN REACH . WILL CONTINUE TO MONITOR.
[2020-01-07 05:55] LABS: BASOPHILS 0.4 % (0-2); EOSINOPHILS 0.2 % (0-7); IMMATURE GRANULOCYTES 0.7 % (0-5); LYMPHOCYTES 10.9 % (15-50); MCH 23.2 pg (26.0-34.0); MEAN PLATELET VOLUME 8.6 fL (7.4-10.4); MONOCYTES 9.9 % (2-11); NEUTROPHILS 77.9 % (40-80); PLATELET COUNT 305 10x3/uL (130-400); RBC 4.26 10x6/uL (4.00-5.40); RDW 19.9 % (11.5-14.5); WBC 8.1 10x3/uL (4.8-10.8)
[2020-01-07 05:56] LABS: HEMATOCRIT 30.9 % (36.0-48.0); HEMOGLOBIN 9.9 g/dL (12-16); MCV 72.5 fL (80.0-100.0)
[2020-01-07 06:12] LABS: ANION GAP 16.1 mmol/L (8-16); BILIRUBIN - TOTAL 0.46 mg/dL (0.2-1.3); CALCIUM 7.6 mg/dL (8.5-10.1); CARBON DIOXIDE 18.4 mmol/L (21.0-32.0); POTASSIUM - SERUM 3.5 mmol/L (3.5-5.1); PROTEIN - SERUM 5.4 g/dL (6.4-8.2)
[2020-01-07 08:31] VITALS: BP 144/69
[2020-01-07 11:45] VITALS: BP 128/71
[2020-01-07 16:26] VITALS: BP 133/68
--- NOTE | 2020-01-07 19:15 | NUR ---
REPORT RECEIVED, PT CARE ASSUMED. PT LYING IN BED WITH EYES CLOSED, RR EVEN AND NONLABORED, NO S/S OF DISTRESS, AROUSES EASILY TO VOICE. INTRODUCED SELF AND WROTE NAME ON BOARD. DENIES ANY NEEDS AT THIS TIME. BED IN LOWEST, SRX2, CALL LIGHT WITHIN REACH. WILL CTM.
[2020-01-07 20:47] VITALS: BP 156/74
--- NOTE | 2020-01-07 21:55 | NUR ---
PT C/O PAIN AT PIV SITE TO LEFT FOREARM. REMOVED, TIP INTACT. NEW PIV TO RIGHT FOREARM, 22 GAUGE, X1 ATTEMPT, TOLERATED WELL.
[2020-01-08 00:06] VITALS: BP 150/69
[2020-01-08 05:34] VITALS: BP 116/59
[2020-01-08 06:21] LABS: BASOPHILS 0.5 % (0-2); EOSINOPHILS 0.8 % (0-7); HEMATOCRIT 28.6 % (36.0-48.0); HEMOGLOBIN 9.3 g/dL (12-16); IMMATURE GRANULOCYTES 0.8 % (0-5); LYMPHOCYTES 12.3 % (15-50); MCH 23.5 pg (26.0-34.0); MCHC 32.5 g/dL (31.0-37.0); MCV 72.2 fL (80.0-100.0); MEAN PLATELET VOLUME 8.8 fL (7.4-10.4); MONOCYTES 12.4 % (2-11); NEUTROPHILS 73.2 % (40-80); PLATELET COUNT 259 10x3/uL (130-400); RBC 3.96 10x6/uL (4.00-5.40); WBC 8.3 10x3/uL (4.8-10.8)
[2020-01-08 06:53] LABS: ALBUMIN 1.8 g/dL (3.4-5.0); ANION GAP 15.2 mmol/L (8-16); BILIRUBIN - TOTAL 0.78 mg/dL (0.2-1.3); CALCIUM 7.7 mg/dL (8.5-10.1); CARBON DIOXIDE 16.3 mmol/L (21.0-32.0); CREATININE - SERUM 0.9 mg/dL (0.6-1.3); POTASSIUM - SERUM 3.5 mmol/L (3.5-5.1); PROTEIN - SERUM 5.1 g/dL (6.4-8.2)
[2020-01-08 08:23] VITALS: BP 99/60
--- NOTE | 2020-01-08 10:30 | NUR ---
AMBULATES HALLWAY WITH PT ASSIST.
[2020-01-08 12:19] VITALS: BP 151/55
[2020-01-08 16:00] VITALS: BP 136/59
--- NOTE | 2020-01-08 18:52 | NUR ---
PATIENT RESTING IN BED WITH EYES CLOSED AND NO S/S OF DISTRESS. BED IN LOWEST POSITION AND CALL LIGHT WITHIN REACH. WILL CONTINUE TO MONITOR.
[2020-01-08 21:02] VITALS: BP 121/65
--- NOTE | 2020-01-08 21:28 | NUR ---
ADMINISTERED MEDS PER ORDERS. DENIES NEEDS AT THIS TIME. WILL CONTINUE TO MONITOR.
[2020-01-09 00:45] VITALS: BP 152/65
[2020-01-09 04:37] VITALS: BP 127/65
[2020-01-09 07:00] LABS: BASOPHILS 0.7 % (0-2); EOSINOPHILS 0.7 % (0-7); HEMATOCRIT 30.3 % (36.0-48.0); HEMOGLOBIN 9.6 g/dL (12-16); IMMATURE GRANULOCYTES 0.6 % (0-5); LYMPHOCYTES 13.4 % (15-50); MCH 22.9 pg (26.0-34.0); MCHC 31.7 g/dL (31.0-37.0); MCV 72.3 fL (80.0-100.0); MEAN PLATELET VOLUME 8.8 fL (7.4-10.4); MONOCYTES 11.5 % (2-11); NEUTROPHILS 73.1 % (40-80); PLATELET COUNT 275 10x3/uL (130-400); RBC 4.19 10x6/uL (4.00-5.40); RDW 20.2 % (11.5-14.5)
[2020-01-09 07:16] LABS: ALBUMIN 1.9 g/dL (3.4-5.0); BILIRUBIN - TOTAL 0.76 mg/dL (0.2-1.3); CALCIUM 7.8 mg/dL (8.5-10.1); CREATININE - SERUM 0.9 mg/dL (0.6-1.3); POTASSIUM - SERUM 3.2 mmol/L (3.5-5.1); PROTEIN - SERUM 5.2 g/dL (6.4-8.2)
[2020-01-09 07:17] LABS: ANION GAP 12.3 mmol/L (8-16); CARBON DIOXIDE 21.9 mmol/L (21.0-32.0)
[2020-01-09 07:50] VITALS: BP 130/61; BP 153/75
[2020-01-09 12:01] VITALS: BP 131/57
--- NOTE | 2020-01-09 13:38 | NUR ---
Nutrition Follow-up: Pt sleeping soundly at time of visit this AM. Chart reviewed. Overall poor PO intake. ST recs regular solids with thin liquids. Diet: Cardiac PO intake: 29% avg x 6 meals Wt: 130# (01/05) Labs noted: Na 131, K+ 3.2, Ca 7.8, Alb 1.9 Meds noted: Zofran, Ferrlecit, Florajen, Protonix, NS @ 75, electrolyte protocol -Encourage PO intake and honor food preferences within diet restrictions. -Offer nutrition supplements. -Monitor wt; noted daily wts ordered. -RD following.
[2020-01-09] MEDS ORDERED: MYAMBUTOL400 MG PO (14:09)
[2020-01-09] MEDS ORDERED: ZITHROMAX250 MG PO (14:09)
[2020-01-09] MEDS ORDERED: RIFADIN300 MG PO (14:10)
--- NOTE | 2020-01-09 15:47 | NUR ---
SALINE LOCK REMOVED, DISCHARGE INSTRUCTIONS WITH PATIENT AND TO WAITING VEHICLE VIA WHEELCHAIR.
--- NOTE | 2020-01-10 13:53 | MORECARE ---
CASE MANAGEMENT DISCHARGE SUMMARY PATIENT: TAO JONES UNIT: [id number] ADM DATE: 01/05/20 AGE: 64 : 55 SEX: F ROOM/BED: D.2106 AUTHOR: LIO RODRIGUES PHYSICIAN: REFERRING PHYSICIAN: ADRIANA BENSON MD DATE OF SERVICE: 01/10/20 Discharge Plan Patient Name: TAO JONES [facility] [facility] 1955 Planned Disposition: Anticipated Discharge Date: Discharge Date: 01/09/2020 Expected LOS: 0 Initial Reviewer: [email or web address] Initial Review Date: 01/10/2020 Generated: 01/10/20 2:52 pm Comments DCP- Discharge Planning Updated by [email or web address]: Malini Poole on 01/09/20 2:[address] Received discharge orders. Patient was already gone when I went to her room to meet with her. Patient Name: TAO JONES Page [phone] at 1353 All edits/amendments must be made on the electronic document DICTATION DATE: 01/10/20 1352 SCRAP DEALER: BOBBY 01/10/20 1352 RPT#: [id number] DC DATE:01/09/20 STATUS: DIS IN [facility] [address] [place] [address] END OF REPORT
--- NOTE | 2020-01-11 01:06 | NUR ---
AZITHROMYCIN INFUSION COMPLETE 184
[2020-01-11 08:13] LABS: IMMUNOGLOBULIN E 309 IU/mL (6-495)
== END 2020-01-09 15:48 | disposition home or self-care (01) | DRG 194 ==
LOC: D.ER 11:05 → D.M2 14:51
PROVIDERS: Family Medicine; Internal Medicine Pulmonary Disease; ADMIT Emergency Medicine; ATTEND Emergency Medicine
DX: J18.9 Pneumonia, unspecified organism (principal); N17.9 Acute kidney failure, unspecified; E87.1 Hypo-osmolality and hyponatremia; J44.0 Chronic obstructive pulmonary disease with (acute) lower respiratory infection; D62 Acute posthemorrhagic anemia; R55 Syncope and collapse; J20.9 Acute bronchitis, unspecified; R00.0 Tachycardia, unspecified; E11.65 Type 2 diabetes mellitus with hyperglycemia; D50.9 Iron deficiency anemia, unspecified; I71.4 Abdominal aortic aneurysm, without rupture; H26.9 Unspecified cataract; K21.9 Gastro-esophageal reflux disease without esophagitis; F31.9 Bipolar disorder, unspecified; E11.22 Type 2 diabetes mellitus with diabetic chronic kidney disease; N18.9 Chronic kidney disease, unspecified; I35.0 Nonrheumatic aortic (valve) stenosis; T17.900A Unspecified foreign body in respiratory tract, part unspecified causing asphyxiation, initial encounter; X58.XXXA Exposure to other specified factors, initial encounter

== ENCOUNTER → 2020-01-13 07:57 | Outpatient (CLI) | payer MEDICARE ==
[2020-01-06 13:35] VITALS: BMI 23.0
[~2020-01-13 07:57] MED LIST changes: +ALDACTONE25 MG PO; +DEXILANT60 MG PO; +MACROBID100 MG PO; +MECLIZINE HCL12.5 MG PO; +MORPHINE SULFAT15 M4 PO; +MYAMBUTOL400 MG PO; +RIFADIN300 MG PO; +VENTOLIN HFA [SP8 GM INH; +ZITHROMAX250 MG PO; +ZOFRAN4 MG PO
[2020-01-13 08:59] LABS: ALBUMIN 2.8 g/dL (3.4-5.0); ANION GAP 19.6 mmol/L (8-16); BILIRUBIN - TOTAL 0.42 mg/dL (0.2-1.3); CALCIUM 8.9 mg/dL (8.5-10.1); CREATININE - SERUM 1.3 mg/dL (0.6-1.3); POTASSIUM - SERUM 4.6 mmol/L (3.5-5.1); PROTEIN - SERUM 6.8 g/dL (6.4-8.2)
== END | disposition home or self-care (01) ==
LOC: D.LAB 07:57
PROVIDERS: ATTEND Internal Medicine Pulmonary Disease
DX: Z87.01 Personal history of pneumonia (recurrent) (principal)

== ENCOUNTER 2020-01-17 08:18 | Inpatient (IN) | payer MEDICARE ==
[~2020-01-17] VITALS: Ht 160 cm; Wt 59.0 kg
[~2020-01-17 08:18] MED LIST changes: -MACROBID100 MG PO
[2020-01-17 09:14] LABS: BASOPHILS 0.6 % (0-2); EOSINOPHILS 0.7 % (0-7); IMMATURE GRANULOCYTES 1.4 % (0-5); LYMPHOCYTES 13.2 % (15-50); MCHC 32.5 g/dL (31.0-37.0); MCV 73.9 fL (80.0-100.0); MEAN PLATELET VOLUME 8.7 fL (7.4-10.4); NEUTROPHILS 78.1 % (40-80); RBC 5.41 10x6/uL (4.00-5.40); RDW 21.7 % (11.5-14.5)
[2020-01-17 09:18] LABS: PLATELET COUNT 534 10x3/uL (130-400)
[2020-01-17 09:41] LABS: NITRITE NEGATIVE (NEGATIVE)
[2020-01-17 09:42] LABS: BILIRUBIN NEGATIVE (NEGATIVE); KETONE NEGATIVE (NEGATIVE); UROBILINOGEN NORMAL mg/dL (< 2)
[2020-01-17 09:44] LABS: BACTERIA MODERATE HPF (NONE SEEN); YEAST RARE /hpf (NONE SEEN)
[2020-01-17 09:45] LABS: GRANULAR CAST 0-5 LPF (NONE SEEN)
[2020-01-17] MEDS ORDERED: MACROBID100 MG PO (10:42)
[2020-01-17 10:46] LABS: MAGNESIUM - SERUM 1.2 mg/dL (1.8-2.4); PRO BNP 643 pg/mL (0-125); THYROID STIMULATING HORMONE 1.92 uIU/mL (0.36-3.74); TROPONIN-I < 0.017 ng/mL (0.000-0.060)
[2020-01-17 11:02] LABS: ALBUMIN 3.4 g/dL (3.4-5.0); BILIRUBIN - TOTAL 0.24 mg/dL (0.2-1.3); CALCIUM 9.4 mg/dL (8.5-10.1); CARBON DIOXIDE 20.8 mmol/L (21.0-32.0); CREATININE - SERUM 1.7 mg/dL (0.6-1.3); POTASSIUM - SERUM 5.9 mmol/L (3.5-5.1); PROTEIN - SERUM 8.2 g/dL (6.4-8.2)
[2020-01-17 11:03] LABS: ANION GAP 18.1 mmol/L (8-16)
--- NOTE | 2020-01-17 11:05 | NUR ---
ERP INFORMED OF CRITICAL LABS NA OF 117 AND CL OF 84
[2020-01-17 16:42] VITALS: BP 121/78
--- NOTE | 2020-01-17 16:45 | NUR ---
COVID SWAB COLLECTED AND SENT TO THE LAB.
[2020-01-17 18:43] LABS: UDS - AMPHET NEGATIVE QUAL (NEGATIVE); UDS - BARB NEGATIVE QUAL (NEGATIVE); UDS - BENZO NEGATIVE QUAL (NEGATIVE); UDS - COCAINE NEGATIVE QUAL (NEGATIVE); UDS - OPIATE NEGATIVE QUAL (NEGATIVE); UDS - PCP NEGATIVE QUAL (NEGATIVE); UDS - THC NEGATIVE QUAL (NEGATIVE)
[2020-01-17 19:00] VITALS: BP 128/85
--- NOTE | 2020-01-17 19:30 | NUR ---
REPORT TO AREN CLARK
[2020-01-17 22:26] VITALS: BP 144/95; BMI 23.0
[2020-01-18] VITALS: BP 121/78
[2020-01-18 04:00] VITALS: BP 127/89
--- NOTE | 2020-01-18 04:04 | NUR ---
PATIENT STATES SHE SHITS ENOUGH WITHOUT DRINKING THE KAYEXELATE, TRIED TO EDUCATE THE WHY OF DRINKING IT AND SHE WAS HAVING NOTHING TO DO WITH IT.
[2020-01-18 08:23] LABS: ANION GAP 15.7 mmol/L (8-16); CALCIUM 8.6 mg/dL (8.5-10.1); CARBON DIOXIDE 20.5 mmol/L (21.0-32.0); CREATININE - SERUM 1.3 mg/dL (0.6-1.3); MAGNESIUM - SERUM 1.1 mg/dL (1.8-2.4); PHOSPHOROUS 3.5 mg/dL (2.5-4.9)
[2020-01-18 08:24] LABS: BASOPHILS 0.8 % (0-2); EOSINOPHILS 1.2 % (0-7); HEMATOCRIT 35.7 % (36.0-48.0); HEMOGLOBIN 11.4 g/dL (12-16); IMMATURE GRANULOCYTES 1.1 % (0-5); LYMPHOCYTES 14.6 % (15-50); MCH 23.5 pg (26.0-34.0); MCHC 31.9 g/dL (31.0-37.0); MCV 73.6 fL (80.0-100.0); MONOCYTES 7.9 % (2-11); NEUTROPHILS 74.4 % (40-80); PLATELET COUNT 474 10x3/uL (130-400); POTASSIUM - SERUM 4.2 mmol/L (3.5-5.1); RBC 4.85 10x6/uL (4.00-5.40); RDW 21.4 % (11.5-14.5); WBC 8.3 10x3/uL (4.8-10.8)
--- NOTE | 2020-01-18 10:45 | NUR ---
URINE SPECIMEN COLLECTED AND TAKEN TO LAB. WILL MONITOR.
[2020-01-18 10:52] VITALS: BP 119/79
[2020-01-18 13:12] VITALS: Ht 160 cm; Wt 59.0 kg
[2020-01-18 14:54] VITALS: BP 124/94
--- NOTE | 2020-01-18 16:12 | NUR ---
UP AMBULATING HALLWAY. GAIT STEADY.
--- NOTE | 2020-01-18 19:31 | NUR ---
REPORT RECIEVED AND ROUNDING COMPLETE. PATIENT LAYING IN BED IN LOW FOWLERS. PATIENT STATES SHE HAS A GOOD DAY, WALKED WITH THERAPY. SHE WAS UPSET THAT THE DAY TEAM DIDNT RESITE HER PIV UNTIL LATER IN THE DAY. LEFT FOREARM PIV THAT IS PATENT AND RUNNING FLUIDS AT THIS TIME, NO S/SX OF DISTRESS NOTED. NO NEEDS VOICED. CALL LIGHT WITHIN [facility] AND BED IN LOWEST LOCKED POSITION.
[2020-01-18 20:00] VITALS: BP 150/78
[2020-01-19] VITALS: BP 128/75
[2020-01-19 04:00] VITALS: BP 120/67
[2020-01-19 07:54] LABS: ALBUMIN 2.6 g/dL (3.4-5.0); ANION GAP 14.5 mmol/L (8-16); BILIRUBIN - TOTAL 0.11 mg/dL (0.2-1.3); CALCIUM 8.3 mg/dL (8.5-10.1); CARBON DIOXIDE 19.9 mmol/L (21.0-32.0); PHOSPHOROUS 2.9 mg/dL (2.5-4.9); POTASSIUM - SERUM 4.4 mmol/L (3.5-5.1); THYROID STIMULATING HORMONE 1.94 uIU/mL (0.36-3.74)
[2020-01-19 07:56] LABS: MAGNESIUM - SERUM 1.8 mg/dL (1.8-2.4); PROTEIN - SERUM 6.1 g/dL (6.4-8.2)
[2020-01-19 08:07] LABS: HEMOGLOBIN 10.2 g/dL (12-16); IMMATURE GRANULOCYTES 0.4 % (0-5); MCH 23.9 pg (26.0-34.0); MCHC 31.9 g/dL (31.0-37.0); MCV 75.1 fL (80.0-100.0); MEAN PLATELET VOLUME 9.1 fL (7.4-10.4); PLATELET COUNT 412 10x3/uL (130-400); RBC 4.26 10x6/uL (4.00-5.40); RDW 21.7 % (11.5-14.5); WBC 7.3 10x3/uL (4.8-10.8)
[2020-01-19 08:10] VITALS: BP 120/62
[2020-01-19 11:41] LABS: LYMPHOCYTES 22 % (15-50); MONOCYTES 11 % (2-11); NEUTROPHILS 66 % (40-80); PLATELET ESTIMATE INCREASED; ROULEAUX OCC
[2020-01-19 11:58] VITALS: BP 126/68
[2020-01-19] MEDS ORDERED: THERMOTABS 1 GM1 GM PO (14:16)
[2020-01-19] MEDS ORDERED: AZITHROMYCIN500 MG PO (14:18)
--- NOTE | 2020-01-19 15:25 | MORECARE ---
CASE MANAGEMENT DISCHARGE SUMMARY PATIENT: TAO JONES UNIT: [id number] ADM DATE: 01/17/20 AGE: 64 : 55 SEX: F ROOM/BED: D.2119 AUTHOR: LIO RODRIGUES PHYSICIAN: REFERRING PHYSICIAN: FREIDA BLANCHARD MD DATE OF SERVICE: 01/19/20 Discharge Plan Patient Name: TAO JONES [facility] [facility] 1955 Planned Disposition: Home Anticipated Discharge Date: Discharge Date: Expected LOS: Initial Reviewer: [email or web address] Initial Review Date: 01/19/2020 Generated: 01/19/20 4:24 pm DCPIA - Discharge Planning Initial Assessment Updated by [email or web address]: Malini Poole on 01/19/20 3:21 pm * Is the patient Alert and Oriented? Yes * How many steps to enter\exit or inside your home? 1/0 * PCP Dr. Silverman * Pharmacy [facility] * Preadmission Environment Home Alone * ADLs Independent * Equipment Bedside Commode Cane Shower Chair Walker * List name and contact numbers for known caregivers / representatives who currently or will assist patient after discharge: Matti Rojo [facility] [phone] * Verbal permission to speak to the caregivers and representatives has been obtained from the patient. Yes * Community resources currently utilized None * Additional services required to return to the preadmission environment? No * Can the patient safely return to the preadmission environment? Yes * Has this patient been hospitalized within the prior 30 days at any hospital? Yes Patient Name: TAO JONES Page [phone] at 1525 All edits/amendments must be made on the electronic document DICTATION DATE: 01/19/[address] JUDGE: BOBBY 01/19/20 152 RPT#: [id number] DC DATE: STATUS: ADM IN [facility] [address] [place] [address] END OF REPORT
--- NOTE | 2020-01-19 15:32 | MORECARE ---
CASE MANAGEMENT DISCHARGE SUMMARY PATIENT: TAO JONES UNIT: [id number] ADM DATE: 01/17/20 AGE: 64 : 55 SEX: F ROOM/BED: D.0510 AUTHOR: LIO RODRIGUES PHYSICIAN: REFERRING PHYSICIAN: FREIDA BLANCHARD MD DATE OF SERVICE: 01/19/20 Discharge Plan Patient Name: TAO JONES Facility[facility]:[place] : 1955 Planned Disposition: Home Anticipated Discharge Date: Discharge Date: Expected LOS: Initial Reviewer: [email or web address] Initial Review Date: 01/19/2020 Generated: 01/19/20 4:32 pm Comments DCP- Discharge Planning Updated by [email or web address]: Malini Poole on 01/19/20 2:[address] Patient Name: TAO JONES Admission Status: ER Accout number: [id number] Admission Date: 01-17-2020 : 1955 Admission Diagnosis:HYPO-OSMOLALITY AND HYPONATREMIA Attending: FREIDA BLANCHARD Current LOS: 2 Anticipated DC Date: Planned Disposition: Home Primary Insurance: MEDICARE A & B Discharge Planning Comments: CM met with patient to complete initial dc planning assessment. CM educated patient on the CM role and verbal consent given by patient to complete assessment. CM verified patient's address, phone number, and emergency contact phone numbers. Patient lives at home alone. At DC patient plans to return home and feels this is a safe discharge. CM discussed availability of HH, rehab, SNF and medical equipment. Patient denied known discharge needs at this time. Transportation provider at discharge will be her brother. CM will continue to follow and assist with discharge planning/needs. Roller Die Cutting Machine Operator: Malini Poole DCPIA - Discharge Planning Initial Assessment Updated by [email or web address]: Malini Poole on 01/19/20 3:21 pm * Is the patient Alert and Oriented? Yes * How many steps to enter\exit or inside your home? 1/0 * PCP Dr. Silverman * Pharmacy [facility] * Preadmission Environment Home Alone * ADLs Independent * Equipment Bedside Commode Cane Shower Chair Walker * List name and contact numbers for known caregivers / representatives who currently or will assist patient after discharge: Matti Rojo - [facility] [phone] * Verbal permission to speak to the caregivers and representatives has been obtained from the patient. Yes * Community resources currently utilized None * Additional services required to return to the preadmission environment? No * Can the patient safely return to the preadmission environment? Yes * Has this patient been hospitalized within the prior 30 days at any hospital? Yes Last DP export: 01/19/20 2:25 p Patient Name: TAO JONES Page 46483 at 1532 All edits/amendments must be made on the electronic document DICTATION DATE: 01/19/20 1532 UNIX MANAGER: BOBBY 01/19/20 1532 RPT#: [id number] DC DATE: STATUS: ADM IN [facility] [address] [place] [address] END OF REPORT
--- NOTE | 2020-01-19 15:41 | NUR ---
IV AND TELEMETRY DCD. DC PLANS GIVEN. UNDERSTANDING VOICED. ESCORTED TO CAR BY W/C.
--- NOTE | 2020-01-20 09:26 | MORECARE ---
CASE MANAGEMENT DISCHARGE SUMMARY PATIENT: TAO JONES UNIT: [id number] ADM DATE: 01/17/20 AGE: 64 : 55 SEX: F ROOM/BED: D.6262 AUTHOR: LIO RODRIGUES PHYSICIAN: REFERRING PHYSICIAN: FREIDA BLANCHARD MD DATE OF SERVICE: 01/20/20 Discharge Plan Patient Name: TAO JONES Facility: [facility]:[place] : 1955 Planned Disposition: Home Anticipated Discharge Date: Discharge Date: 01/19/2020 Expected LOS: Initial Reviewer: [email or web address] Initial Review Date: 01/19/2020 Generated: 01/20/20 10:25 am Comments DCP- Discharge Planning Updated by [email or web address]: Malini Poole on 01/19/20 2:[address] Patient Name: TAO JONES Admission Status: ER Accout number: [id number] Admission Date: 01-17-2020 : 1955 Admission Diagnosis:HYPO-OSMOLALITY AND HYPONATREMIA Attending: FREIDA BLANCHARD Current LOS: 2 Anticipated DC Date: Planned Disposition: Home Primary Insurance: MEDICARE A & B Discharge Planning Comments: CM met with patient to complete initial dc planning assessment. CM educated patient on the CM role and verbal consent given by patient to complete assessment. CM verified patient's address, phone number, and emergency contact phone numbers. Patient lives at home alone. At DC patient plans to return home and feels this is a safe discharge. CM discussed availability of HH, rehab, SNF and medical equipment. Patient denied known discharge needs at this time. Transportation provider at discharge will be her brother. CM will continue to follow and assist with discharge planning/needs. Electronics Teacher: Malini Poole DCPIA - Discharge Planning Initial Assessment Updated by [email or web address]: Malini Poole on 01/19/20 3:21 pm * Is the patient Alert and Oriented? Yes * How many steps to enter\exit or inside your home? 1/0 * PCP Dr. Silverman * Pharmacy [facility] * Preadmission Environment Home Alone * ADLs Independent * Equipment Bedside Commode Cane Shower Chair Walker * List name and contact numbers for known caregivers / representatives who currently or will assist patient after discharge: Matti oneill - [phone] * Verbal permission to speak to the caregivers and representatives has been obtained from the patient. Yes * Community resources currently utilized None * Additional services required to return to the preadmission environment? No * Can the patient safely return to the preadmission environment? Yes * Has this patient been hospitalized within the prior 30 days at any hospital? Yes Last DP export: 01/19/20 2:32 p Patient Name: TAO JONES Page 06896 at 0926 All edits/amendments must be made on the electronic document DICTATION DATE: 01/20/20924 SALES ACCOUNT SPECIALIST: BOBBY 01/20/20924 RPT#: [id number] DC DATE:01/19/20 STATUS: DIS IN [facility] [address] [place] [address] END OF REPORT
== END 2020-01-19 15:42 | disposition home or self-care (01) | DRG 640 ==
LOC: D.ER 08:18 → D.EDHOLD 12:39 → D.M2 12:39
PROVIDERS: Emergency Medicine; ADMIT Family Medicine; ATTEND Family Medicine
DX: E87.1 Hypo-osmolality and hyponatremia (principal); J18.9 Pneumonia, unspecified organism; N39.0 Urinary tract infection, site not specified; N17.9 Acute kidney failure, unspecified; E83.42 Hypomagnesemia; E83.39 Other disorders of phosphorus metabolism; I71.4 Abdominal aortic aneurysm, without rupture; J44.9 Chronic obstructive pulmonary disease, unspecified; H26.9 Unspecified cataract; K21.9 Gastro-esophageal reflux disease without esophagitis; M19.90 Unspecified osteoarthritis, unspecified site; F31.9 Bipolar disorder, unspecified; Z85.038 Personal history of other malignant neoplasm of large intestine

== ENCOUNTER → 2020-07-02 08:11 | Outpatient (CLI) | payer MEDICARE ==
[2020-01-18 13:12] VITALS: BMI 23.0
[~2020-07-02 08:11] MED LIST changes: +AZITHROMYCIN500 MG PO; +MACROBID100 MG PO; +THERMOTABS 1 GM1 GM PO
== END | disposition home or self-care (01) ==
LOC: D.CT 08:11
PROVIDERS: ATTEND Thoracic Surgery (Cardiothoracic Vascular Surgery)
DX: I71.4 Abdominal aortic aneurysm, without rupture (principal)

== ENCOUNTER → 2020-07-18 09:05 | Outpatient (CLI) | payer MEDICARE ==
[2020-01-18 13:12] VITALS: BMI 23.0
== END | disposition home or self-care (01) ==
LOC: D.CT 09:05
PROVIDERS: ATTEND Thoracic Surgery (Cardiothoracic Vascular Surgery)
DX: I71.4 Abdominal aortic aneurysm, without rupture (principal)

== ENCOUNTER 2020-08-16 06:52 | Inpatient (IN) | payer MEDICARE ==
[2020-08-15 16:37] LABS: BASOPHILS 1.1 % (0-2); EOSINOPHILS 1.8 % (0-7); HEMATOCRIT 31.6 % (36.0-48.0); HEMOGLOBIN 9.7 g/dL (12-16); IMMATURE GRANULOCYTES 0.2 % (0-5); LYMPHOCYTE ABS# 1.56 10x3/uL (1.18-3.74); LYMPHOCYTES 23.8 % (15-50); MCH 23.7 pg (26.0-34.0); MCHC 30.7 g/dL (31.0-37.0); MCV 77.3 fL (80.0-100.0); MEAN PLATELET VOLUME 8.8 fL (7.4-10.4); MONOCYTES 7.5 % (2-11); NEUTROPHILS 65.6 % (40-80); RBC 4.09 10x6/uL (4.00-5.40); RDW 15.6 % (11.5-14.5); WBC 6.6 10x3/uL (4.8-10.8)
[2020-08-15 16:48] LABS: PLATELET COUNT 295 10x3/uL (130-400)
[2020-08-15 16:50] LABS: APTT 24.8 SECONDS (22.8-39.4); INR 1.02 (0.85-1.17); PROTIME 12.3 SECONDS (11.6-15.0)
[2020-08-15 16:56] LABS: BILIRUBIN NEGATIVE (NEGATIVE); KETONE NEGATIVE (NEGATIVE); NITRITE NEGATIVE (NEGATIVE); UROBILINOGEN NORMAL mg/dL (< 2)
[2020-08-15 17:00] LABS: ALBUMIN 3.4 g/dL (3.4-5.0); ANION GAP 15.5 mmol/L (8-16); BILIRUBIN - TOTAL 0.13 mg/dL (0.2-1.3); CALCIUM 8.8 mg/dL (8.5-10.1); CARBON DIOXIDE 24.2 mmol/L (21.0-32.0); CREATININE - SERUM 1.3 mg/dL (0.6-1.3); POTASSIUM - SERUM 3.7 mmol/L (3.5-5.1); PROTEIN - SERUM 7.2 g/dL (6.4-8.2)
[2020-08-15 17:03] LABS: SQUAMOUS EPITHELIAL 0-5 HPF (0-4); WHITE CELLS - URINE 25-50 HPF (0-4)
[2020-08-15 17:04] LABS: BACTERIA FEW HPF (NONE SEEN)
[~2020-08-16] VITALS: Ht 160 cm; Wt 63.1 kg
[2020-08-16] VITALS (38 sets, daily range): BP systolic 108–143; BP diastolic 52–544; BMI 24.3; BMI 23.4
[~2020-08-16 06:52] MED LIST changes: +ZANAFLEX4 MG
--- NOTE | 2020-08-16 07:20 | NUR ---
APPROX 40 YEARS AGO, PT STATES SHE TRIED TO END HER LIFE. SINCE THEN SHE HAS TURNED HER LIFE OVER TO GOD AND ONLY HE HAS CONTROL OVER THIS. PTS VERBALIZES NO FURTHER INTERVENTIONS ARE NEEDED IN THIS AREA
[2020-08-16] MEDS ORDERED: ALDACTONE25 MG PO (07:27)
[2020-08-16] MEDS ORDERED: PEPCID40 MG PO (07:28)
[2020-08-16] MEDS ORDERED: ZOFRAN4 MG PO (07:29)
--- NOTE | 2020-08-16 15:34 | NUR ---
PT RECIEVED TO ROOM ALERT AND ORIENTED VSS INCISION SITES SOFT, NO SIGNS OF BLEEDING, BROTHER UPDATED WILL CONTINUE TO MONITOR
[2020-08-16 15:43] LABS: BASOPHILS 0.5 % (0-2); EOSINOPHILS 1.4 % (0-7); HEMATOCRIT 25.3 % (36.0-48.0); HEMOGLOBIN 7.8 g/dL (12-16); IMMATURE GRANULOCYTES 0.3 % (0-5); LYMPHOCYTE ABS# 1.93 10x3/uL (1.18-3.74); LYMPHOCYTES 17.9 % (15-50); MCH 23.8 pg (26.0-34.0); MCHC 30.8 g/dL (31.0-37.0); MCV 77.1 fL (80.0-100.0); MEAN PLATELET VOLUME 8.9 fL (7.4-10.4); NEUTROPHIL ABS# 7.85 10x3/uL (1.56-6.13); NEUTROPHILS 72.9 % (40-80); PLATELET COUNT 261 10x3/uL (130-400); RBC 3.28 10x6/uL (4.00-5.40); RDW 15.7 % (11.5-14.5)
--- NOTE | 2020-08-16 15:45 | NUR ---
NOTIFIED AND REVIEWED PATIENTS BEHAVIOR AND THIS RISK ASSESSMENT. PATIENT IS LOW RISK SUICIDE OCCURED 20 YEARS AGO AND HAS NOT HAPPENED SINCE. PER dR. HALEY, GIVE PATIENT RESOURCES FOR SUICIDE RISK AT THE TIME OF DISCHARGE. NO FURTHER INTERVENTIOS ARE NEEDED AT THIS TIME. RESOURCE INFORMATION GIVEN. PATIENT STATED SHE UNDERSTOOD.
[2020-08-16 15:47] LABS: WBC 10.8 10x3/uL (4.8-10.8)
[2020-08-16 16:40] LABS: INR 1.38 (0.85-1.17); PROTIME 15.7 SECONDS (11.6-15.0)
[2020-08-16 16:41] LABS: APTT > 200.0 SECONDS (22.8-39.4)
--- NOTE | 2020-08-16 17:26 | NUR ---
PTT CALLED FROM LAB, DR GONZALEZ NURSE COURTNI NOTIFIED
[2020-08-17] VITALS (50 sets, daily range): BP systolic 90–149; BP diastolic 47–77; Ht 160 cm; Wt 63.1 kg
[2020-08-17 05:43] LABS: BASOPHILS 0.4 % (0-2); EOSINOPHILS 0.4 % (0-7); HEMATOCRIT 21.4 % (36.0-48.0); IMMATURE GRANULOCYTES 0.1 % (0-5); LYMPHOCYTE ABS# 0.68 10x3/uL (1.18-3.74); LYMPHOCYTES 9.6 % (15-50); MCH 23.5 pg (26.0-34.0); MCHC 30.4 g/dL (31.0-37.0); MCV 77.3 fL (80.0-100.0); MEAN PLATELET VOLUME 8.6 fL (7.4-10.4); MONOCYTES 8.5 % (2-11); PLATELET COUNT 230 10x3/uL (130-400); RBC 2.77 10x6/uL (4.00-5.40); RDW 15.8 % (11.5-14.5)
[2020-08-17 05:55] LABS: WBC 7.1 10x3/uL (4.8-10.8)
[2020-08-17 05:57] LABS: HEMOGLOBIN 6.5 g/dL (12-16)
[2020-08-17 06:13] LABS: ANION GAP 15.2 mmol/L (8-16); CARBON DIOXIDE 23.1 mmol/L (21.0-32.0); MAGNESIUM - SERUM 1.6 mg/dL (1.8-2.4); PHOSPHOROUS 4.4 mg/dL (2.5-4.9); POTASSIUM - SERUM 3.3 mmol/L (3.5-5.1)
--- NOTE | 2020-08-17 10:58 | NUR ---
0930: R RADIAL ARTERIAL LINE DC'D. MANUAL PRESSURE HELD X 4 MIN AND DRESSED WITH 2X2 AND TEGADERM.
--- NOTE | 2020-08-17 14:39 | OP ---
PATIENT NAME: TAO JONES MEDICAL RECORD: [id number] :55 LOCATION:D.CVI D.CV05 ADMISSION DATE:08/16/20 SURGEON: CELINA VILLA MD DATE OF OPERATION: 08/16/2020 SURGEON: Celina Villa MD PROCEDURE PERFORMED: 1. Endovascular repair of abdominal aortic aneurysm utilizing bifurcated aortic graft and bilateral iliac extensions. 2. Aortogram times 5. 3. Left femoral arteriogram. 4. Left femoral exploration, common femoral and proximal superficial femoral endarterectomy and patch closure, left femoral thrombectomy. PREOPERATIVE DIAGNOSES: Abdominal aortic aneurysm with enlargement, peripheral vascular disease. POSTOPERATIVE DIAGNOSES: Abdominal aortic aneurysm with enlargement, peripheral vascular disease. Left lower extremity thrombosis. BLOOD LOSS: 100. COMPLICATIONS: Left femoral artery thrombosis. CONDITION: Stable. DISPOSITION: CV ICU. OPERATIVE FINDINGS: 1. Bilateral percutaneous access with pre-deployed ProGlides, good Doppler pulses, both dorsalis pedis and posterior tibial prior to procedure. 2. Placement of the ALTO 29 mm with the rings and then placement of bilateral 12 x 140 cm iliacs. TECHNIQUE: The detailed placement notes are as written, but at the conclusion of the case, the patient had no endoleak and the lowest right renal was seen to come off just above the ceiling ring. Hazy flow at the left cannulation site was seen and no Doppler pulses on the left, therefore a cutdown was performed. The Perclose devices were removed. There was a localized dissection and some chronic disease, therefore endarterectomy was performed, femoral thrombectomy. The patient was heparinized prior to the first procedure. This was reversed and additional heparin was needed. It was not reversed the second time. Patch closure with CorMatrix patch was performed. Flow was restored first to the profunda then to the superficial femoral. Good Doppler peripheral signal was noted. Hemostasis was ensured. Thorough irrigation was undertaken. A drain was placed and the wound was closed in 3 layers. Right groin puncture site closure after closing the ProGlides at the conclusion of the aortic aneurysm repair. TRANSINT:[id number] Voice Confirmation ID: [id number] DOCUMENT ID: [id number] OPERATIVE REPORT [id number] TAO JONES CELINA VILLA MD at 1435 CC: SKYLAR ALVAREZ DO [id number] DICTATION DATE: 08/16/20 1519 BUSINESS SALES CONSULTANT: 08/16/20 1728 ADM IN [place] [id number] [place] [id number]
[2020-08-18] VITALS (10 sets, daily range): BP systolic 91–128; BP diastolic 34–76
[2020-08-18 05:10] LABS: BASOPHILS 0.4 % (0-2); EOSINOPHILS 1.5 % (0-7); IMMATURE GRANULOCYTES 0.3 % (0-5); LYMPHOCYTE ABS# 1.12 10x3/uL (1.18-3.74); LYMPHOCYTES 15.7 % (15-50); MCH 24.3 pg (26.0-34.0); MCHC 31.3 g/dL (31.0-37.0); MCV 77.7 fL (80.0-100.0); MEAN PLATELET VOLUME 8.8 fL (7.4-10.4); MONOCYTES 11.9 % (2-11); NEUTROPHILS 70.2 % (40-80); PLATELET COUNT 196 10x3/uL (130-400); RBC 3.09 10x6/uL (4.00-5.40); RDW 15.7 % (11.5-14.5); WBC 7.1 10x3/uL (4.8-10.8)
[2020-08-18 05:12] LABS: HEMOGLOBIN 7.5 g/dL (12-16)
[2020-08-18 05:27] LABS: ANION GAP 12.5 mmol/L (8-16); CALCIUM 8.3 mg/dL (8.5-10.1); CARBON DIOXIDE 24.7 mmol/L (21.0-32.0); MAGNESIUM - SERUM 1.8 mg/dL (1.8-2.4); PHOSPHOROUS 2.8 mg/dL (2.5-4.9); POTASSIUM - SERUM 3.2 mmol/L (3.5-5.1)
--- NOTE | 2020-08-18 05:49 | NUR ---
Shift summary: Patients blood pressure trending down, MAP remains > 65. Ambulated several times to the bathroom using walker, standby assist. No sign of bleeding. Pain controlled with scheduled and prn medications. Denies any needs.
--- NOTE | 2020-08-18 06:56 | NUR ---
Dressing changed at L thigh incision; new sterile 4x4 and transparent dressing applied. No sign of infection.
[2020-08-18] MEDS ORDERED: LOPRESSOR25 MG PO (10:46)
[2020-08-18] MEDS ORDERED: HEMOCYTE PLUS C1 CAP PO (10:47)
[2020-08-18] MEDS ORDERED: K-DUR20 MEQ PO (10:48)
--- NOTE | 2020-08-18 11:51 | MORECARE ---
CASE MANAGEMENT DISCHARGE SUMMARY PATIENT: TAO JONES UNIT: [id number] ADM DATE: 08/16/20 AGE: 65 : 55 SEX: F ROOM/BED: [facility] AUTHOR: RAVI,DOC PHYSICIAN: REFERRING PHYSICIAN: CELINA VILLA MD DATE OF SERVICE: 08/18/20 Case Management Discharge Planning Summary COMMENTS ENTERED DATE: 08/18/20 11:46 CT COMMENT TYPE: Discharge Planning REVIEWER: Belem Tena CM spoke with patient to complete discharge plan and discuss needs. Patient states she lives at home and requires no assistance. Patient required O2 initially during admission but now with 98% on RA. Patient states her brother (Matti Rojo) will provide transportation. Patient states she is independent with all ADLs. Pt stated she would like to return home with no services (HHS, IPR, SNF, DME) needed and feels this is a safe discharge. CM will continue to follow and assist as needed. DCP REVIEW SUMMARY ANTICIPATED D/C DATE: 08/18/2020 EXPECTED LOS : 2 CASE STATUS: DCP Complete INITIAL REVIEW: 08/16/2020 INITIAL REVIEWER: Belem Tena FINAL DISCHARGE DISPOSITION: 01 : Home or Self Care (Routine Discharge) FINAL REVIEWER: FINAL REVIEW DATE: DCP Focus Questions & Answers DCP Screen QUESTION: ANSWER High Risk Factors: : None Walking limitation: Patient stated self rated walking limitation present? : No Age: : 65 - 79 Prior living environment: : Lives Alone Disability ranking: : Grade 1: No significant disability DCP Evaluation QUESTION: ANSWER Patient's ability to cope with chronic illness : d. No chronic illness Would patient like to participate in any Care Coordination programs (if applicable): : Not applicable Mental health screen: : No mental health history DCP Re-evaluation QUESTION: ANSWER Would patient like to participate in any Care Coordination programs (if applicable): : Not applicable PATIENT: TAO JONES ENCOUNTER: [id number] MEDICAL RECORD#: [id number] ADMISSION DATE: 08/16/2020 DISCHARGE DATE: ATTENDING MD: CELINA FRIEDMAN : AGE: 65 MARITAL STATUS: D DC PLAN ID: [id number] FACILITY: [facility] PRINTED ON: 08/18/20 11:51 CT All edits/amendments must be made on the electronic document DICTATION DATE: 08/18/201150 OVERHEAD CRANE INSPECTOR: BOBBY 08/18/20 115 RPT#: [id number] DC DATE: STATUS: ADM IN [facility] [address] [place] [address] END OF REPORT
--- NOTE | 2020-08-18 12:01 | NUR ---
PATIENT CALLED [facility]IDE AFTER PHYSICIAN SAID SHE COULD GO HOME WE EXPLAINED THERE WAS A LOT FOR US TO DO AND WE WOULD DO OUR BEST GET HER READY FOR HER RIDE. [facility] CALLED AND WILL GO TO PHARMACY TO [facility]. PAN RECLAIM PROCESSOR HERE AND DISCHARGE ORDERS DISCUSSED AND SIGNED DRESSING TO LEFT GROIN AND TLC REMOVED AND DRESSING APPLIED.PATIENT IS READY TO GO HOME NOW.
--- NOTE | 2020-08-18 12:02 | MORECARE ---
CASE MANAGEMENT DISCHARGE SUMMARY PATIENT: TAO JONES UNIT: [id number] ADM DATE: 08/16/20 AGE: 65 : 55 SEX: F ROOM/BED: [facility] AUTHOR: RAVI,DOC PHYSICIAN: REFERRING PHYSICIAN: CELINA VILLA MD DATE OF SERVICE: 08/18/20 Case Management Discharge Planning Summary COMMENTS ENTERED DATE: 08/18/20 11:46 CT COMMENT TYPE: Discharge Planning REVIEWER: Belem Tena CM spoke with patient to complete discharge plan and discuss needs. Patient states she lives at home and requires no assistance. Patient required O2 initially during admission but now with 98% on RA. Patient states her brother (Matti Rojo) will provide transportation. Patient states she is independent with all ADLs. Pt stated she would like to return home with no services (HHS, IPR, SNF, DME) needed and feels this is a safe discharge. CM will continue to follow and assist as needed. DCP REVIEW SUMMARY ANTICIPATED D/C DATE: 08/18/2020 EXPECTED LOS : 2 CASE STATUS: DCP Complete INITIAL REVIEW: 08/16/2020 INITIAL REVIEWER: Belem Tena FINAL DISCHARGE DISPOSITION: 01 : Home or Self Care (Routine Discharge) FINAL REVIEWER: FINAL REVIEW DATE: DCP Focus Questions & Answers DCP Screen QUESTION: ANSWER High Risk Factors: : None Walking limitation: Patient stated self rated walking limitation present? : No Age: : 65 - 79 Prior living environment: : Lives Alone Disability ranking: : Grade 1: No significant disability DCP Evaluation QUESTION: ANSWER Patient's ability to cope with chronic illness : a. Adequate (0-3 ED visits in 6 mos., adequate financial resources, attends scheduled appts.) Patient's current cognitive status: : *Oriented to person, place, situation, time and present Family / Caregiver's ability to cope with chronic illness: : a. Adequate (ability to meet patient's medical needs, ensures patient attends medical appts.) Patient and/or caregiver agree upon recommended discharge plan? : Yes Physical Status: : Independent with ADL's Family / Caregiver's ability to cope with chronic illness: : a. Adequate (ability to meet patient's medical needs, ensures patient attends medical appts.) Functional screen assessment: : Basic needs can adequately be met by self Does the patient have the ability to pay for or attain post discharge needs / services? : N/A Living Arrangements: : Home Alone with Support Is there a likelihood that the patient will require additional services to return to the preadmission environment? : No Equipment needed for post hospitalization: : None Baseline cognitive status: : *Oriented to person, place, situation, time and present Patient with capacity for self-care or can be cared for in same environment as prior to hospitalization? : Yes Results of this evaluation have been discussed with: : Patient Physical environment modification needed / anticipated for discharge: : No Medication Management: : Patient states can afford medications Planned post hospital services available for patient? : N/A Does Patient have transportation to get home and to follow-up medical appointments when discharged from the hospital? : Yes Planned post hospital services covered by insurance plan? : N/A Would patient like to participate in any Care Coordination programs (if applicable): : Not applicable Comments: : Brother (Matti Rojo) will provide transportation home Does the patient have electricity at home? : Yes Does the patient have running water in their house? : Yes Equipment in use: : Walker - Standard Other Equipment comments: : has walker but does not use- ambulates without assistance Mental health screen: : No mental health history DCP Re-evaluation QUESTION: ANSWER Would patient like to participate in any Care Coordination programs (if applicable): : Not applicable PATIENT: TAO JONES ENCOUNTER: [id number] MEDICAL RECORD#: [id number] ADMISSION DATE: 08/16/2020 DISCHARGE DATE: ATTENDING MD: CELINA FRIEDMAN : AGE: 65 MARITAL STATUS: D DC PLAN ID: [id number] FACILITY: [facility] PRINTED ON: 08/18/20 12:02 CT All edits/amendments must be made on the electronic document DICTATION DATE: 08/18/20 120 SKI TECHNICIAN: BOBBY 08/18/201201 RPT#: [id number] DC DATE: STATUS: ADM IN [facility] [address] [place] [address] END OF REPORT
== END 2020-08-18 11:45 | disposition home or self-care (01) | DRG 269 ==
LOC: D.SDCHOLD 06:52 → D.CVICU 06:52 → D.SDCHOLD 07:30 → D.CVICU 13:06
PROVIDERS: Family Medicine; ADMIT Thoracic Surgery (Cardiothoracic Vascular Surgery); ATTEND Thoracic Surgery (Cardiothoracic Vascular Surgery)
PROC: 04V03EZ Restriction of Abdominal Aorta with Branched or Fenestrated Intraluminal Device, One or Two Arteries, Percutaneous Approach (ICD-10-PCS; principal; 2020-08-16 09:00)
PROC: 04UL0JZ Supplement Left Femoral Artery with Synthetic Substitute, Open Approach (ICD-10-PCS; 2020-08-16 09:00)
PROC: 04CL0ZZ Extirpation of Matter from Left Femoral Artery, Open Approach (ICD-10-PCS; 2020-08-16 09:00)
DX: I71.4 Abdominal aortic aneurysm, without rupture (principal); D62 Acute posthemorrhagic anemia; I74.3 Embolism and thrombosis of arteries of the lower extremities; J44.9 Chronic obstructive pulmonary disease, unspecified; K21.9 Gastro-esophageal reflux disease without esophagitis; M19.90 Unspecified osteoarthritis, unspecified site; I10 Essential (primary) hypertension; E78.5 Hyperlipidemia, unspecified; Z72.0 Tobacco use; F31.9 Bipolar disorder, unspecified

== ENCOUNTER → 2020-08-22 10:12 | Outpatient (CLI) | payer MEDICARE ==
[2020-08-17 10:40] VITALS: BMI 23.3
[~2020-08-22 10:12] MED LIST changes: +HEMOCYTE PLUS C1 CAP PO; +K-DUR20 MEQ PO; +LOPRESSOR25 MG PO
[2020-08-22 10:34] LABS: BASOPHILS 0.7 % (0-2); EOSINOPHILS 2.1 % (0-7); HEMOGLOBIN 8.9 g/dL (12-16); IMMATURE GRANULOCYTES 0.4 % (0-5); LYMPHOCYTE ABS# 1.01 10x3/uL (1.18-3.74); LYMPHOCYTES 13.4 % (15-50); MCH 24.6 pg (26.0-34.0); MCHC 31.8 g/dL (31.0-37.0); MCV 77.3 fL (80.0-100.0); MEAN PLATELET VOLUME 8.6 fL (7.4-10.4); MONOCYTES 8.8 % (2-11); NEUTROPHIL ABS# 5.63 10x3/uL (1.56-6.13); NEUTROPHILS 74.6 % (40-80); RBC 3.62 10x6/uL (4.00-5.40); RDW 16.2 % (11.5-14.5); WBC 7.5 10x3/uL (4.8-10.8)
[2020-08-22 10:35] LABS: PLATELET COUNT 291 10x3/uL (130-400)
[2020-08-22 10:44] LABS: ANION GAP 15.4 mmol/L (8-16); CARBON DIOXIDE 25.6 mmol/L (21.0-32.0); CREATININE - SERUM 1.1 mg/dL (0.6-1.3)
== END | disposition home or self-care (01) ==
LOC: D.LAB 10:12
PROVIDERS: ATTEND Thoracic Surgery (Cardiothoracic Vascular Surgery)
DX: Z98.890 Other specified postprocedural states (principal)

== ENCOUNTER → 2020-09-10 07:28 | Outpatient (CLI) | payer MEDICARE ==
[2020-08-17 10:40] VITALS: BMI 23.3
== END | disposition home or self-care (01) ==
LOC: D.CT 07:28
PROVIDERS: ATTEND Thoracic Surgery (Cardiothoracic Vascular Surgery)
DX: I71.4 Abdominal aortic aneurysm, without rupture (principal)

== ENCOUNTER 2020-09-21 08:34 | Day surgery (SDC) | payer MEDICARE ==
[~2020-09-21] VITALS: Ht 160 cm; Wt 62.7 kg
[2020-09-21 08:57] LABS: HEMOGLOBIN 9.5 g/dL (12-16); MCH 22.3 pg (26.0-34.0); MCHC 31.6 g/dL (31.0-37.0); MCV 70.6 fL (80.0-100.0); MEAN PLATELET VOLUME 6.5 fL (7.4-10.4); RBC 4.25 10x6/uL (4.00-5.40); WBC 7.2 10x3/uL (4.8-10.8)
[2020-09-21 09:01] LABS: ANION GAP 13.9 mmol/L (8-16); CALCIUM 9.5 mg/dL (8.5-10.1); CARBON DIOXIDE 24.9 mmol/L (21.0-32.0); CREATININE - SERUM 1.2 mg/dL (0.6-1.3); POTASSIUM - SERUM 3.8 mmol/L (3.5-5.1)
[2020-09-21 09:02] LABS: APTT 25.4 SECONDS (22.8-39.4); INR 1.03 (0.85-1.17); PROTIME 12.5 SECONDS (11.6-15.0)
[2020-09-21 09:23] VITALS: BP 137/99; Ht 160 cm; Wt 62.7 kg
--- NOTE | 2020-09-21 11:27 | NUR ---
SOFT NO S\S OF BLEEDING ON DRESSING. NO S\S OF HEMATOMA
[2020-09-21] MEDS ORDERED: PERCOCET 5-3251 TAB PO (11:34)
--- NOTE | 2020-09-21 17:18 | NUR ---
R EJ D/C'D WITH CANNULA INTACT AFTER COMPLETE SUTRURE REMOVAL. PRESSURE HELD X 10 MINUTES WITHOUT S/S OF HEMATOMA. MINIMAL PRESSURE DRESSING PLACED AND INSTRUCTED PT TO REMOVE WITHIN A FEW HOURS OF RETURNING HOME. SHE VERBALIZED AN UNDERSTANDING. PT RATES PAIN 5/10 AND STATES SHE'D RATHER TAKE HER MORPHINE WHICH SHE HAS AT HOME RATHER THAN WAIT FOR ADMINISTRATION HERE IN HOSPITAL. GROIN SITE WITHOUT S/S OF HEMATOMA AND CDI DRSG. DISCHARGE INSTRUCTIONS GIVEN AND PT VERBALIZED AN UNDERSTANDING DISCHARGED HOME IN STABLE CONDITION AND WITHOUT C/O
--- NOTE | 2020-09-21 17:24 | NUR ---
ILEOSTOMY BAG INTACT
--- NOTE | 2020-09-22 07:30 | OP ---
PATIENT NAME: TAO JONES MEDICAL RECORD: [id number] :55 LOCATION:[facility] ADMISSION DATE: SURGEON: FREEDOM VILLA MD DATE OF OPERATION: 09/21/2020 SURGEON: Freedom Villa M.D. PROCEDURE PERFORMED: Excision of left inguinal lymph node. PREOPERATIVE DIAGNOSIS: Painful left inguinal lymphadenopathy. POSTOPERATIVE DIAGNOSIS: Painful left inguinal lymphadenopathy. ANESTHESIA: General: The wound was instilled with Marcaine, a total of 12 mL subcutaneous. FINDINGS: Enlarged inguinal lymph node. The vascular closure was intact and there was no seroma. ESTIMATED BLOOD LOSS: Minimal. SPECIMENS: Lymph node. COMPLICATIONS: None. CONDITION: Stable. DISPOSITION: Recovery room, same day surgery and home discharge. INDICATIONS: Painful enlarged lymph node at the upper lateral aspect of the left groin wound. The patient is status post endovascular repair, abdominal aortic aneurysm. PROCEDURE IN DETAIL: The patient was brought to the operating suite, prepped and draped. Incision of the lateral part of the incision was made large lymph node just below the skin was noted. It was excised. There was no discrete stalk of this lymph node and there were some enlarged lymph nodes more medially that were left alone. Hemostasis was ensured. Antibiotic irrigation was performed. The wound was then closed with interrupted vertical mattress sutures of nylon. Antibiotic cream applied. A dressing applied. The patient was extubated and to recovery room stable. TRANSINT:[id number] Voice Confirmation ID: [id number] DOCUMENT ID: [id number] FREEDOM VILLA MD at 0730 CC: SKYLAR ALVAREZ DO [id number] DICTATION DATE: 09/21/20 1455 BARREL RACER: 09/22/20 0220 [facility] 09/21/20 [place] [id number] [place] [id number]
== END 2020-09-21 12:50 | disposition home or self-care (01) ==
LOC: D.OPS 08:34
PROVIDERS: ATTEND Thoracic Surgery (Cardiothoracic Vascular Surgery)
DX: R59.0 Localized enlarged lymph nodes (principal); I71.4 Abdominal aortic aneurysm, without rupture; I73.9 Peripheral vascular disease, unspecified

== ENCOUNTER 2020-10-04 08:59 | Day surgery (SDC) | payer MEDICARE ==
[~2020-10-04] VITALS: Ht 160 cm; Wt 59.9 kg
[~2020-10-04 08:59] MED LIST changes: +PERCOCET 5-3251 TAB PO
[2020-10-04 09:19] LABS: HEMATOCRIT 30.5 % (36.0-48.0); HEMOGLOBIN 9.4 g/dL (12-16); MCH 21.2 pg (26.0-34.0); MCHC 30.8 g/dL (31.0-37.0); MCV 68.7 fL (80.0-100.0); MEAN PLATELET VOLUME 6.5 fL (7.4-10.4); RBC 4.44 10x6/uL (4.00-5.40); RDW 18.5 % (11.5-14.5)
[2020-10-04 09:35] LABS: ANION GAP 14.9 mmol/L (8-16); CALCIUM 9.7 mg/dL (8.5-10.1); CREATININE - SERUM 1.2 mg/dL (0.6-1.3); POTASSIUM - SERUM 3.9 mmol/L (3.5-5.1)
[2020-10-04 09:49] LABS: INR 1.03 (0.85-1.17); PROTIME 12.5 SECONDS (11.6-15.0)
[2020-10-04 13:10] VITALS: BP 125/59; Ht 160 cm; Wt 59.9 kg
--- NOTE | 2020-10-04 15:23 | NUR ---
PT STATES PAIN DECREASED.
--- NOTE | 2020-10-04 16:20 | NUR ---
BULMARO, NURSE WITH DR VILLA, HERE TO ASSESS PT AND WOUND VAC. NOTIFIED HER THAT PT HAS NO DC ORDERS OR ORDERS FOR PAIN MEDS. STATES SHE WILL PLACE ORDERS.
--- NOTE | 2020-10-04 17:20 | NUR ---
BULMARO WITH DR VILLA'S OFFICE AT BEDSIDE AND SWITCHING PT'S WOUND VAC OUT TO A SMALL PORTABLE WOUND VAC. PT WAS GIVEN MORPHINE 2 MG IV BY AREN LUCIA, PT STATES PAIN WENT FROM 7/10 TO 0/10.
--- NOTE | 2020-10-04 17:40 | NUR ---
DISCHARGE INSTRUCTIONS REVIEWED WITH PT, COPY PROVIDED AND PT VOICED UNDERSTANDING OF ALL. RIGHT EJ IV SITE THEN DC'D WITH CATHETER INTACT. STERILE 2X2 FOLDED AND PLACED OVER SITE, SECURED WITH TEGADERM. ASSISTED PT TO GET DRESSED. PT THEN ASSISTED TO AMBULATE TO BATHROOM AND VOIDED. 175- DISCHARGED VIA W/C, ACCOMPANIED BY THIS NURSE, TO POV WITH BROTHER DRIVING. ALL BELONGINGS WERE WITH PT'S BROTHER.
--- NOTE | 2020-10-05 08:28 | OP ---
PATIENT NAME: TAO JONES MEDICAL RECORD: [id number] :55 LOCATION:[facility] ADMISSION DATE: SURGEON: CELINA VILLA MD DATE OF OPERATION: 10/04/2020 SURGEON: Celina Villa MD PROCEDURE PERFORMED: Debridement left groin incision and placement of wound VAC. ANESTHESIA: General. BLOOD LOSS: None. SPECIMENS: None. FINDINGS: 1 x 1 x 4 cm incision, clean granulating base. Small seroma present. Wound VAC placed. INDICATION: Seroma drainage from the incision one month after open exposure of the left femoral artery for endovascular repair of abdominal aortic aneurysm. PROCEDURE IN DETAIL: The patient was brought to the operating suite. The general anesthesia was obtained and the sutures in the groin were removed. The wound was opened. Small seroma was drained and the wound was debrided of a small amount of shaggy yellow tissue down to good granulation tissue. No further fluid was noted and the wound VAC was placed without difficulty. The patient to outpatient. Instructions given. TRANSINT:[id number] Voice Confirmation ID: [id number] DOCUMENT ID: [id number] CELINA VILLA MD at 0828 CC: [id number] DICTATION DATE: 10/04/20 1602 GOLD NIB GRINDER: 10/04/201942 [facility] 10/04/20 [place] [id number] [place] [address]
== END 2020-10-04 17:54 | disposition home or self-care (01) ==
LOC: D.OPS 08:59
PROVIDERS: ATTEND Thoracic Surgery (Cardiothoracic Vascular Surgery)
DX: R59.1 Generalized enlarged lymph nodes (principal); T81.89XD Other complications of procedures, not elsewhere classified, subsequent encounter